=== PATIENT | female | born 1935 | race Caucasian/White ===

== ENCOUNTER 2017-06-06 07:30 | Emergency (ER) | payer MEDICARE, OTHER ==
[~2017-06-06] VITALS: Ht 167.6 cm; Wt 63.8 kg
[~2017-06-06 07:30] MED LIST: /ATOR40TA OR; ASPI81TA83 OR; CLONIDINE TTS TOP; LISI10TA4 OR; LOPR50TA OR; NITR0.4S SL; PAIN325T OR; PLAV75TA2 OR; no
[2017-06-06 07:31] VITALS: BP 162/78
[2017-06-06] MEDS ORDERED: FLUTISP (07:40)
[2017-06-06] MEDS ORDERED: LEVO50TA5 (07:40)
[2017-06-06] MEDS ORDERED: VALS320T3 (07:40)
[2017-06-06] MEDS ORDERED: METO50TA7 (07:40)
[2017-06-06 08:13] LABS: BASO # 0.1 10^3/uL (0.0-0.2); BASO % 0.7 % (0.0-1.0); EOS # 0.8 10^3/uL (0.0-0.50); EOS % 7.7 % (0.0-3.0); IMMATURE GRANULOCYTE % 0.3 % (0-0); LYMPH # 2.1 10^3/uL (1.5-4.5); LYMPH % 21.4 % (24.0-44.0); MEAN CORPUSCULAR HGB CONC 33.1 g/dl (32.0-36.5); MEAN CORPUSCULAR VOLUME 96.7 fl (80.0-96.0); MONO # 0.6 10^3/uL (0.0-0.8); MONO % 6.4 % (0.0-5.0); NEUTROPHILS # 6.2 10^3/uL (1.8-7.7); NEUTROPHILS % 63.5 % (36.0-66.0); PLATELET COUNT, AUTOMATED 269 10^3/uL (150-450); RED CELL DISTRIBUTION WIDTH 13.2 % (11.5-14.5); WHITE BLOOD COUNT 9.8 10^3/uL (4.0-10.0)
== END 2017-06-06 08:34 | disposition home or self-care (01) ==
LOC: M ED 07:30
DX: R04.0 Epistaxis (principal); I10 Essential (primary) hypertension; I25.10 Atherosclerotic heart disease of native coronary artery without angina pectoris; I25.2 Old myocardial infarction; Z79.899 Other long term (current) drug therapy; Z79.82 Long term (current) use of aspirin; Z87.891 Personal history of nicotine dependence

== ENCOUNTER 2018-07-15 18:06 | Emergency (ER) | payer MEDICARE, OTHER ==
[~2018-07-15] VITALS: Ht 170.2 cm; Wt 73.6 kg
[~2018-07-15 18:06] MED LIST changes: -AMIO200T PO; -ATOR40TA75 PO; -DOKTAB2 PO; -FAMO1TAB11 PO; -FERR325T18 PO; -GABA-1171 PO; -METO25TA4 PO; -XARE15TA PO
[2018-07-15] MEDS ORDERED: XARE15TA PO (18:34)
[2018-07-15] MEDS ORDERED: AMIO200T PO (18:34)
[2018-07-15] MEDS ORDERED: ATOR40TA75 PO (18:34)
[2018-07-15] MEDS ORDERED: FERR325T18 PO (18:34)
[2018-07-15] MEDS ORDERED: DOKTAB2 PO (18:34)
[2018-07-15] MEDS ORDERED: GABA-1171 PO (18:34)
[2018-07-15] MEDS ORDERED: FAMO1TAB11 PO (18:34)
[2018-07-15] MEDS ORDERED: METO25TA4 PO (18:34)
[2018-07-15 18:59] LABS: BASO # 0.1 10^3/uL (0.0-0.2); BASO % 0.6 % (0.0-1.0); EOS # 1.1 10^3/uL (0.0-0.50); EOS % 13.8 % (0.0-3.0); HEMOGLOBIN 9.9 g/dl (12.0-15.5); LYMPH # 1.6 10^3/uL (1.5-4.5); LYMPH % 19.3 % (24.0-44.0); MEAN CORPUSCULAR HEMOGLOBIN 32.1 pg (27.0-33.0); MEAN CORPUSCULAR HGB CONC 31.9 g/dl (32.0-36.5); MEAN CORPUSCULAR VOLUME 100.6 fl (80.0-96.0); MONO # 0.8 10^3/uL (0.0-0.8); MONO % 9.7 % (0.0-5.0); NEUTROPHILS # 4.6 10^3/uL (1.8-7.7); NEUTROPHILS % 56.2 % (36.0-66.0); PLATELET COUNT, AUTOMATED 293 10^3/uL (150-450); RED BLOOD COUNT 3.08 10^6/uL (4.00-5.40); WHITE BLOOD COUNT 8.1 10^3/uL (4.0-10.0)
[2018-07-15 19:31] VITALS: BP 133/63
[2018-07-15 19:37] LABS: ALBUMIN 2.9 GM/DL (3.2-5.2); ALT/SGPT 40 U/L (12-78); BILIRUBIN,DIRECT 0.2 MG/DL (0.0-0.2); BILIRUBIN,TOTAL 0.5 MG/DL (0.2-1.0); BLOOD UREA NITROGEN 16 MG/DL (7-18); CALCIUM LEVEL 8.7 MG/DL (8.8-10.2); CARBON DIOXIDE LEVEL 30 MEQ/L (21-32); CHLORIDE LEVEL 98 MEQ/L (98-107); CREATININE FOR GFR 0.88 MG/DL (0.55-1.30); GLOMERULAR FILTRATION RATE > 60.0 (>32); GLUCOSE, FASTING 109 MG/DL (70-100); LIPASE 173 U/L (73-393); POTASSIUM SERUM 4.6 MEQ/L (3.5-5.1); SODIUM LEVEL 134 MEQ/L (136-145); TOTAL PROTEIN 6.2 GM/DL (6.4-8.2)
[2018-07-15 20:48] LABS: NT-PRO BNP 2895 PG/ML (<450)
--- NOTE | 2018-07-15 21:28 | ECGEPIP ---
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
--- NOTE | 2018-07-15 21:42 | REPVR ---
EXAM: US Duplex Bilateral Lower Extremity Veins EXAM DATE/TIME: 07/15/2018 9:20 PM CLINICAL HISTORY: 83 years old, female; Pain; Leg, upper and leg, lower; Bilateral; Prior surgery; Surgery date: 1-6 months; Surgery type: Hip on left; Additional info: Swell/pain TECHNIQUE: Real-time duplex ultrasound of the Bilateral Lower Extremities with 2-D begum scale, color Doppler flow and spectral waveform analysis. Complete exam focused on the bilateral lower extremity veins. COMPARISON: No relevant prior studies available. FINDINGS: Right deep veins: Unremarkable. The common femoral, femoral, proximal profunda femoral and popliteal veins are patent without thrombus. Normal Doppler waveforms. Normal compressibility and/or augmentation response. Right superficial veins: Saphenofemoral junction is patent without thrombus. Left deep veins: Unremarkable. The common femoral, femoral, proximal profunda femoral and popliteal veins are patent without thrombus. Normal Doppler waveforms. Normal compressibility and/or augmentation response. Left superficial veins: Saphenofemoral junction is patent without thrombus. Soft tissues: Soft tissue swelling right left leg. IMPRESSION: No evidence of deep vein thrombosis. Electronically signed by: Devon Whyte On 07/15/2018 21:42:02 PM
[2018-07-15] MEDS ORDERED: ISOVUE-370 76% 100ML VIAL (Q9967) As Ordered ONE (22:51)
--- NOTE | 2018-07-15 23:37 | REPVR ---
EXAM: CT Angiography Chest With Contrast EXAM DATE/TIME: 07/15/2018 9:57 PM CLINICAL HISTORY: 83 years old, female; Pain; Chest pain; Type not specified; Additional info: Dysp TECHNIQUE: Axial computed tomographic angiography images of the chest with intravenous contrast using CT angiography protocol. All CT scans at this facility use at least one of these dose optimization techniques: automated exposure control; mA and/or kV adjustment per patient size (includes targeted exams where dose is matched to clinical indication); or iterative reconstruction. Coronal and sagittal reformatted images were created and reviewed. MIP reconstructed images were created and reviewed. CONTRAST: 75 ml of iso administered intravenously. COMPARISON: No relevant prior studies available. FINDINGS: Pulmonary arteries: Normal. No pulmonary emboli. Aorta: There is opacification of the aorta which appears intact. There is calcification atherosclerotic change throughout the aorta. Thyroid: Normal thyroid. Lungs: Small bulla are noted in the apical portions of the lung. Pleural space: A small right pleural effusion. There is no evidence of pneumothorax. Heart: There is mild cardiomegaly. There is no pericardial effusion. Lymph nodes: Small lymph nodes are noted in the mediastinum. Bones/joints: Unremarkable. No acute fracture. Soft tissues: Unremarkable. IMPRESSION: 1. There is no evidence of pulmonary embolus. 2. There is a small right pleural effusion. 3. Mild right basilar atelectasis. 4. Changes of COPD in a few bulla. Electronically signed by: Devon Whyte On 07/15/2018 23:36:42 PM
[2018-07-16] MEDS ORDERED: FUROSEMIDE 100 MG/10 ML VIAL (J1940) IV ONE (00:15)
--- NOTE | 2018-07-16 12:57 | ED PDOC ---
Post-Departure Follow-Up dr gannon faxed formal report of cta chest for fu Estrada Tejada MD Jul 16, 2018 12:57
== END 2018-07-16 02:33 | disposition home or self-care (01) ==
LOC: M ED 18:06
DX: J44.9 Chronic obstructive pulmonary disease, unspecified (principal); R60.9 Edema, unspecified; Z98.890 Other specified postprocedural states; K21.9 Gastro-esophageal reflux disease without esophagitis; E78.5 Hyperlipidemia, unspecified; I48.91 Unspecified atrial fibrillation; I25.10 Atherosclerotic heart disease of native coronary artery without angina pectoris; D50.9 Iron deficiency anemia, unspecified; Z95.5 Presence of coronary angioplasty implant and graft; Z79.899 Other long term (current) drug therapy; Z79.890 Hormone replacement therapy; Z79.01 Long term (current) use of anticoagulants; Z99.81 Dependence on supplemental oxygen; Z87.891 Personal history of nicotine dependence
CPT/HCPCS: 71275; 80048; 80076; 83690; 83880; 85025; 85379; 93005; 93041; 93970; 96374; 99284; J1940; Q9967

== ENCOUNTER → 2018-07-15 | Outpatient (REF) | payer MEDICARE, OTHER ==
[~2018-07-15] MED LIST changes: +AMIO200T PO; +ATOR40TA75 PO; +DOKTAB2 PO; +FAMO1TAB11 PO; +FERR325T18 PO; +FLUTISP; +GABA-1171 PO; +LEVO50TA5; +METO25TA4 PO; +METO50TA7; +VALS320T3; +XARE15TA PO
== END ==
LOC: M LAB REF 13:09
PROVIDERS: ATTEND Nurse Practitioner Family
DX: R60.0 Localized edema (principal); S42.125 Nondisplaced fracture of acromial process, left shoulder; I65.23 Occlusion and stenosis of bilateral carotid arteries

== ENCOUNTER 2018-08-01 07:10 | Emergency (ER) | payer MEDICARE, OTHER ==
[~2018-08-01] VITALS: Ht 170.2 cm; Wt 74.0 kg
[~2018-08-01 07:10] MED LIST changes: +AMIO200T PO; +ATOR40TA75 PO; +DOKTAB2 PO; +FAMO1TAB11 PO; +FERR325T18 PO; +GABA-1171 PO; -LEVO50TA5; +LEVO50TA5 PO; +METO25TA4 PO; +XARE15TA PO
[2018-08-01] MEDS ORDERED: METOPROLOL TART 25 MG TABLET PO ONE (07:45)
[2018-08-01 07:51] LABS: BASO % 0.4 % (0.0-1.0); EOS # 1.5 10^3/uL (0.0-0.50); EOS % 15.9 % (0.0-3.0); HEMATOCRIT 30.8 % (36.0-47.0); LYMPH # 1.3 10^3/uL (1.5-4.5); LYMPH % 14.2 % (24.0-44.0); MEAN CORPUSCULAR HEMOGLOBIN 32.9 pg (27.0-33.0); MEAN CORPUSCULAR HGB CONC 32.5 g/dl (32.0-36.5); MEAN CORPUSCULAR VOLUME 101.3 fl (80.0-96.0); MONO # 0.7 10^3/uL (0.0-0.8); MONO % 7.7 % (0.0-5.0); NEUTROPHILS # 5.6 10^3/uL (1.8-7.7); NEUTROPHILS % 61.5 % (36.0-66.0); PLATELET COUNT, AUTOMATED 249 10^3/uL (150-450); RED BLOOD COUNT 3.04 10^6/uL (4.00-5.40); WHITE BLOOD COUNT 9.1 10^3/uL (4.0-10.0)
[2018-08-01] MEDS ORDERED: FURO20TA2 PO (07:52)
[2018-08-01] MEDS ORDERED: ASPI1TAB PO (07:52)
[2018-08-01] MEDS ORDERED: CAND4TAB PO (07:52)
[2018-08-01] MEDS ORDERED: CANDESARTAN 4MG TABLET PO ONE (08:00)
[2018-08-01] MEDS ORDERED: AMIO200T PO (08:03)
[2018-08-01 08:10] LABS: INR 1.09; PARTIAL THROMBOPLASTIN TIME 31.5 SECONDS (25.4-37.6); PROTHROMBIN TIME 14.2 SECONDS (12.1-14.4)
[2018-08-01 08:14] LABS: CALCIUM LEVEL 8.4 MG/DL (8.8-10.2); CREATININE FOR GFR 0.96 MG/DL (0.55-1.30); GLOMERULAR FILTRATION RATE 59.4 (>32); POTASSIUM SERUM 4.1 MEQ/L (3.5-5.1)
[2018-08-01] MEDS ORDERED: AMIODARONE 200 MG TAB (PACERONE) PO ONE (08:15)
[2018-08-01] MEDS ORDERED: FUROSEMIDE 20 MG TAB PO ONE (08:30)
[2018-08-01] MEDS ORDERED: ALBU83IN INH (09:12)
[2018-08-01] MEDS ORDERED: BROV15NE NEB (09:12)
[2018-08-01] MEDS ORDERED: AUGM875T28 PO (10:07)
[2018-08-01 10:15] VITALS: BP 173/76
== END 2018-08-01 10:32 | disposition home or self-care (01) ==
LOC: EDSEX 07:10 → M ED 07:10 → EDBD 07:10 → M ED 10:32
DX: R04.0 Epistaxis (principal); J44.9 Chronic obstructive pulmonary disease, unspecified; Z99.81 Dependence on supplemental oxygen; Z79.01 Long term (current) use of anticoagulants; Z79.82 Long term (current) use of aspirin; I11.9 Hypertensive heart disease without heart failure; I25.10 Atherosclerotic heart disease of native coronary artery without angina pectoris; I25.2 Old myocardial infarction; D64.9 Anemia, unspecified; E78.9 Disorder of lipoprotein metabolism, unspecified; Z95.5 Presence of coronary angioplasty implant and graft; Z87.19 Personal history of other diseases of the digestive system; Z87.891 Personal history of nicotine dependence; Z79.899 Other long term (current) drug therapy

== ENCOUNTER 2018-08-09 22:32 | Inpatient (IN) | payer MEDICARE, OTHER ==
[~2018-08-09] VITALS: Ht 170.2 cm; Wt 74.9 kg
[~2018-08-09 22:32] MED LIST changes: +ALBU83IN INH; +ASPI1TAB PO; +AUGM875T28 PO; +BROV15NE NEB; +CAND4TAB PO; +FURO20TA2 PO
[2018-08-09] MEDS ORDERED: dexameTHASONE 20 MG/5 ML VIAL (J1100) IV ONE (22:45)
[2018-08-09 23:00] LABS: BASO % 0.4 % (0.0-1.0); EOS # 0.1 10^3/uL (0.0-0.50); EOS % 1.2 % (0.0-3.0); HEMATOCRIT 26.7 % (36.0-47.0); HEMOGLOBIN 8.7 g/dl (12.0-15.5); LYMPH # 0.8 10^3/uL (1.5-4.5); LYMPH % 7.7 % (24.0-44.0); MEAN CORPUSCULAR HEMOGLOBIN 32.8 pg (27.0-33.0); MEAN CORPUSCULAR HGB CONC 32.6 g/dl (32.0-36.5); MEAN CORPUSCULAR VOLUME 100.8 fl (80.0-96.0); NEUTROPHILS # 8.8 10^3/uL (1.8-7.7); NEUTROPHILS % 81.3 % (36.0-66.0); PLATELET COUNT, AUTOMATED 237 10^3/uL (150-450); RED BLOOD COUNT 2.65 10^6/uL (4.00-5.40); WHITE BLOOD COUNT 10.8 10^3/uL (4.0-10.0)
[2018-08-09] MEDS: IPRATROPIUM 0.5MG/ALBUTEROL 2.5MG INH SOL UD 3ML (DUONEB)(J7620) NEB SCH ×2 (23:01→23:39)
[2018-08-09] MEDS ORDERED: AZITHROMYCIN INJ 500 MG, VIAL MATE ADAPTER 1 EACH in D5W 250 ML IV ONE (23:15)
[2018-08-09] MEDS ORDERED: cefTRIAXone SOD 1 GM in D5W MINI-BAG PLUS 50 ML IV ONE (23:15)
[2018-08-09 23:18] LABS: BLOOD UREA NITROGEN 15 MG/DL (7-18); CARBON DIOXIDE LEVEL 31 MEQ/L (21-32); CHLORIDE LEVEL 84 MEQ/L (98-107); CREATININE FOR GFR 0.75 MG/DL (0.55-1.30); GLOMERULAR FILTRATION RATE > 60.0 (>32); GLUCOSE, FASTING 121 MG/DL (70-100); POTASSIUM SERUM 4.7 MEQ/L (3.5-5.1); SODIUM LEVEL 121 MEQ/L (136-145)
[2018-08-09] MEDS ORDERED: METO50TA7 PO (23:43)
[2018-08-09] MEDS ORDERED: AUGM875T28 PO (23:47)
[2018-08-09] MEDS ORDERED: NS 1,000 ML IV SCH (23:53)
[2018-08-10] MEDS ORDERED: PIPERACILLIN/TAZOBACTAM SOD 3.375 GM in D5W MINI-BAG PLUS 50 ML IV SCH ×2
[2018-08-10] MEDS ORDERED: IPRATROPIUM 0.5MG/ALBUTEROL 2.5MG INH SOL UD 3ML (DUONEB)(J7620) NEB PRN
[2018-08-10] MEDS ORDERED: ACETAMINOPHEN TAB 650MG DOSE (2X325MG) PO PRN
[2018-08-10] MEDS: methylPREDNISolone INJ 40 MG/1 ML VIAL (J2920) IV SCH ×4 (02:00→20:22)
[2018-08-10] MEDS: PIPERACILLIN/TAZOBACTAM SOD 3.375 GM in D5W MINI-BAG PLUS 50 ML IV SCH ×4 (02:00→20:24)
[2018-08-10 02:25] VITALS: BP 146/66
[2018-08-10] MEDS: IPRATROPIUM 0.5MG/ALBUTEROL 2.5MG INH SOL UD 3ML (DUONEB)(J7620) NEB SCH ×5 (03:19→23:54)
[2018-08-10] MEDS: PANTOPRAZOLE 40MG INJ (PROTONIX) (C9113) IV SCH (05:22)
[2018-08-10] MEDS: LEVOTHYROXINE 50MCG TABLET (0.05MG) PO SCH (05:22)
[2018-08-10] MEDS: DOXYCYCLINE HYCLATE 100 MG in D5W MINI-BAG PLUS 100 ML IV SCH ×2 (05:23→17:37)
[2018-08-10 06:05] VITALS: BP 156/76
[2018-08-10 06:23] LABS: BASO % 0.2 % (0.0-1.0); HEMATOCRIT 25.7 % (36.0-47.0); HEMOGLOBIN 8.5 g/dl (12.0-15.5); LYMPH # 0.3 10^3/uL (1.5-4.5); MEAN CORPUSCULAR HEMOGLOBIN 32.3 pg (27.0-33.0); MEAN CORPUSCULAR HGB CONC 33.1 g/dl (32.0-36.5); MEAN CORPUSCULAR VOLUME 97.7 fl (80.0-96.0); MONO # 0.1 10^3/uL (0.0-0.8); MONO % 1.2 % (0.0-5.0); NEUTROPHILS # 6.1 10^3/uL (1.8-7.7); NEUTROPHILS % 94.1 % (36.0-66.0); PLATELET COUNT, AUTOMATED 205 10^3/uL (150-450); RED BLOOD COUNT 2.63 10^6/uL (4.00-5.40); WHITE BLOOD COUNT 6.5 10^3/uL (4.0-10.0)
[2018-08-10 06:45] LABS: BLOOD UREA NITROGEN 14 MG/DL (7-18); CALCIUM LEVEL 8.1 MG/DL (8.8-10.2); CARBON DIOXIDE LEVEL 29 MEQ/L (21-32); CHLORIDE LEVEL 85 MEQ/L (98-107); CREATININE FOR GFR 0.72 MG/DL (0.55-1.30); FERRITIN 160 NG/ML (8-252); GLOMERULAR FILTRATION RATE > 60.0 (>32); GLUCOSE, FASTING 136 MG/DL (70-100); IRON (FE) 22 UG/DL (50-170); PERCENT SATURATION 8.6 % (13.2-45.0); POTASSIUM SERUM 4.5 MEQ/L (3.5-5.1); SODIUM LEVEL 121 MEQ/L (136-145); TOTAL IRON BINDING CAPACITY 257 UG/DL (250-450)
[2018-08-10 08:00] VITALS: BP 147/66
[2018-08-10] MEDS ORDERED: IPRATROPIUM 0.5MG/ALBUTEROL 2.5MG INH SOL UD 3ML (DUONEB)(J7620) NEB SCH (08:00)
[2018-08-10] MEDS: RIVAROXABAN 15 MG TAB (XARELTO) PO SCH (08:09)
[2018-08-10] MEDS: FAMOTIDINE 20 MG TAB PO SCH (08:10)
[2018-08-10] MEDS: METOPROLOL TART 25 MG TABLET PO SCH ×2 (08:10→20:29)
[2018-08-10] MEDS: ASPIRIN 81 MG ENTERIC TAB PO SCH (08:10)
[2018-08-10] MEDS: GABAPENTIN 100 MG CAP PO SCH ×2 (08:10→20:30)
[2018-08-10] MEDS: FERROUS SULFATE 325MG TAB PO SCH ×2 (08:11→20:27)
[2018-08-10] MEDS: SENOKOT S TAB PO SCH ×2 (08:11→20:28)
[2018-08-10] MEDS ORDERED: FUROSEMIDE 20 MG TAB PO SCH (09:00)
[2018-08-10 09:38] LABS: SODIUM,RANDOM URINE < 10 MEQ/L
[2018-08-10 09:40] LABS: APPEARANCE, URINE HAZY (CLEAR); BACTERIA, URINE AUTO NEGATIVE (NEGATIVE); BILIRUBIN, URINE AUTO NEGATIVE (NEGATIVE); BLOOD, URINE BLOOD NEGATIVE (NEGATIVE); COLOR, URINE YELLOW (YELLOW); GLUCOSE, URINE (UA) AUTO NEGATIVE (NEGATIVE); KETONE, URINE AUTO NEGATIVE (NEGATIVE); LEUKOCYTE ESTERASE, URINE AUTO NEGATIVE (NEGATIVE); MUCUS, URINE SMALL (NEGATIVE); NITRITE, URINE AUTO NEGATIVE (NEGATIVE); PROTEIN, URINE AUTO 1+ mg/dL (NEGATIVE); RBC, URINE AUTO 1 /HPF (0-3); SPECIFIC GRAVITY URINE AUTO 1.009 (1.002-1.035); SQUAMOUS EPITHELIAL CELL UR AU 1 /HPF (0-6); UROBILINOGEN, URINE AUTO 0.2 mg/dL (0.0-2.0); WBC, URINE AUTO 0 /HPF (0-3)
[2018-08-10 10:12] LABS: OSMOLALITY URINE 262 MOSM/KG (500-800)
--- NOTE | 2018-08-10 10:31 | REP ---
Portable chest, 10:55 p.m., AP view, the patient upright: Comparisons are the PA and lateral chest dated 01/27/[address] of 07/15/2018. There is an infiltrate in the lateral basilar segment right lower lobe, not present on the comparison studies. There is a small right pleural effusion. There is a small right pleural effusion on the comparison CT. No left pleural effusion is identified on the study today, however, there is a small left pleural effusion on the comparison CT. There are no other infiltrates. The interstitium is diffusely coarsened. This appears to be a chronic change suggestive of a chronic interstitial lung disease. Cardiac size is upper normal. The ghassan, mediastinum, skeletal structures are unremarkable. Impression: Right lower lobe infiltrate and pleural effusion. Chronic interstitial coarsening. Electronically Signed by Eliceo Dawn MD 08/10/2018 09:07 A
--- NOTE | 2018-08-10 11:24 | IPNPDOC ---
Text Note Date of Service The patient was seen on 08/10/18. NOTE Subjective: Pt states she has SOB, however no cough. No CP/Palpitations. Patient is confused this morning however daughter notes that patient was hospitalized in [place] month and half ago for hip fracture following mechanical fall. Patient denies any hip pain at this time. Objective: Vitals: (see below) General: No acute distress, laying comfortably in bed. HEENT: Moist mucous membranes. Neck: No JVD or lymphadenopathy. No stridor. Cardiac: RRR, No murmurs Pulm: Expiratory wheezing and rhonchi bilaterally. Crackles at the bases right> left lung base. No use of accessory muscles. Abd: NT/ND + BS Ext: 1-2+ pitting edema BLE. No cyanosis Neuro: Strength 5/5 BUE and BLE. CN 2-12 intact. F to N intact Labs (see below) Images: CT head pending Chest x-ray in 08/09/18 Impression: Right lower lobe infiltrate and pleural effusion. Chronic interstitial coarsening. Assessment/Plan Active/Acute Issues: 1. COPD secondary to right lower lobe pneumonia. Started on Zosyn and doxycycline. MRSA screen. Continue Solu-Medrol. Nebs increased to every 4 hours. Blood/sputum culture pending. Mucinex added. 2. Hyponatremia- Patient has not been drinking very much for the past few days. UA/urine osmolality/TSH pending. Nephrology consulted. Appreciate input. 3. History of atrial fibrillation. Rate control. On Xarelto. 4. Hypertension controlled continue home meds. Chronic Issues: 1. History of CAD status post PCI. Continue home meds. 2. History of hip fracture status post repair. 3. History of carotid stenosis. Follow up outpatient with PCP. 4. History of hyperlipidemia 5. History of tobacco abuse. DVT prophy: On Xarelto Overall prognosis guarded. VS,Fishbone, I+O VS, Fishbone, I+O Laboratory Tests 08/09/18 22:50 Red Blood Count 2.65 L, Mean Corpuscular Volume 100.8 H, Mean Corpuscular Hemoglobin 32.8, Mean Corpuscular Hemoglobin Concent 32.6, Red Cell Distribution Width 17.2 H, Neutrophils (%) (Auto) 81.3 H, Lymphocytes (%) (Auto) 7.7 L, Monocytes (%) (Auto) 9.0 H, Eosinophils (%) (Auto) 1.2, Basophils (%) (Auto) 0.4, Neutrophils # (Auto) 8.8 H, Lymphocytes # (Auto) 0.8 L, Monocytes # (Auto) 1.0 H, Eosinophils # (Auto) 0.1, Basophils # (Auto) 0.0, Calcium Level 8.0 L 08/10/18 05:33 Red Blood Count 2.63 L, Mean Corpuscular Volume 97.7 H, Mean Corpuscular Hemoglobin 32.3, Mean Corpuscular Hemoglobin Concent 33.1, Red Cell Distribution Width 17.1 H, Neutrophils (%) (Auto) 94.1 H, Lymphocytes (%) (Auto) 4.0 L, Monocytes (%) (Auto) 1.2, Eosinophils (%) (Auto) 0.0, Basophils (%) (Auto) 0.2, Neutrophils # (Auto) 6.1, Lymphocytes # (Auto) 0.3 L, Monocytes # (Auto) 0.1, Eosinophils # (Auto) 0.0, Basophils # (Auto) 0.0, Calcium Level 8.1 L Vital Signs Date Time Temp Pulse Resp B/P (MAP) Pulse Ox O2 Delivery O2 Flow Rate FiO2 08/10/18 08:10 62 147/66 08/10/18 08:00 3.0 08/10/18 08:00 96.9 18 98 08/10/18 06:23 Nasal Cannula I&O- Last 24 Hours up to 6 AM 08/10/18 06:00 Intake Total 475 ml Output Total 0 ml Balance 475 ml JARVIS NORRIS MD Aug 10, 2018 11:24
[2018-08-10] MEDS ORDERED: FUROSEMIDE 40 MG/4 ML VIAL (J1940) IV ONE (11:30)
[2018-08-10 11:36] LABS: URIC ACID 2.7 MG/DL (2.6-6.0)
[2018-08-10] MEDS: CANDESARTAN 4MG TABLET PO SCH (11:47)
[2018-08-10] MEDS: guaiFENesin ER 600 MG TAB PO SCH ×2 (11:47→20:30)
[2018-08-10 12:00] VITALS: BP 149/63
[2018-08-10 14:48] LABS: BLOOD UREA NITROGEN 14 MG/DL (7-18); CALCIUM LEVEL 8.4 MG/DL (8.8-10.2); CARBON DIOXIDE LEVEL 28 MEQ/L (21-32); CHLORIDE LEVEL 86 MEQ/L (98-107); CREATININE FOR GFR 0.88 MG/DL (0.55-1.30); GLOMERULAR FILTRATION RATE > 60.0 (>32); GLUCOSE, FASTING 169 MG/DL (70-100); POTASSIUM SERUM 4.2 MEQ/L (3.5-5.1); SODIUM LEVEL 124 MEQ/L (136-145)
[2018-08-10 16:00] VITALS: BP 122/66
--- NOTE | 2018-08-10 17:50 | ECGEPIP ---
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
[2018-08-10 18:53] LABS: CALCIUM LEVEL 8.1 MG/DL (8.8-10.2); CREATININE FOR GFR 0.98 MG/DL (0.55-1.30)
[2018-08-10 20:00] VITALS: BP 126/76
--- NOTE | 2018-08-10 20:22 | HPE ---
DATE OF ADMISSION: 08/09/2018 PRIMARY CARE PROVIDER: Dr. Fong STRUCTURAL STEEL ENGINEER: Dr. Becker ATTENDING PHYSICIAN: Dr. Macario CHIEF COMPLAINT: Worsening coughing, shortness of breath and wheezing for about two days. HISTORY OF PRESENT ILLNESS: This patient is an 83-year-old white female with history of chronic obstructive pulmonary disease (COPD) came to the hospital for evaluation of above complaints. The history was provided by herself we well as by her daughters who are with her in the emergency room (ER). However, the patient is a poor historian. Per the family, back to June 21, she was in [place] visiting her family and she fell. She got left hip fracture and for that she had to be hospitalized and underwent open reduction and internal fixation treatment. After surgery she developed atrial fibrillation and for that she started to take Xarelto for anticoagulation treatment as well as amiodarone. Gradually she recovered and she came back to the [place] area on July 12. Later on, she developed nose bleeding and she came to the hospital and she was ruled out pulmonary embolism (PE) but she was advised to hold Xarelto for one day and then restart it after her nose bleeding resolves. Per family, in the last two days she has worsening shortness of breath, coughing without phlegm as well as wheezing. She does not have any fever, no chills. No vomiting. No chest pain. No abdominal pain. No diarrhea. Sent her here for the following evaluation in the ER. In the ER her initial workup indicated she has worsening anemia. Sodium is down to 121 and also her chest exam shows she may have pneumonia. Intravenous (IV) antibiotics and steroids were started in the ER. Meanwhile, medicine service called for admission. REVIEW OF SYSTEMS: Denies fever, no chills, no headache. No blurred vision. Positive shortness of breath. Positive wheezing and coughing but not phlegm. No hematemesis. No nausea, no vomiting. No abdominal pain. No chest pain. No diarrhea. The family mentioned she had some black stool at home in the last few weeks. All other systems reviewed were negative. PAST MEDICAL HISTORY: 1. Chronic obstructive pulmonary disease (COPD) on 3 liters oxygen supplement at home. 2. Paroxysmal atrial fibrillation on Xarelto. 3. Hypertension. 4. Hypothyroidism. 5. Coronary artery disease status post stenting back in 2008. PAST SURGICAL HISTORY: 1. Left hip open reduction and internal fixation. 2. Cardiac stent. SOCIAL HISTORY: 1-1/2 pack daily tobacco use daily for about 40 years, quit 10 years ago. No alcohol abuse. No illicit drug abuse. She is FULL CODE. FAMILY HISTORY: One of her sisters from some kind of cancer and one of the brothers had a heart transplant. ALLERGIES: No known drug allergies. MEDICATIONS: - albuterol as needed - amiodarone 200 mg every two days - aspirin 81 mg by mouth daily - atorvastatin 40 mg by mouth daily - candesartan 4 mg by mouth daily - famotidine 20 mg by mouth daily - ferrous sulfate 325 mg by mouth twice a day - Lasix 20 mg by mouth daily - Neurontin 200 mg by mouth twice a day - Synthroid 50 mg by mouth daily - metoprolol 75 mg by mouth twice a day - Xarelto 15 mg daily PHYSICAL EXAMINATION: VITAL SIGNS: Temperature is 96.5, heart rate is 55, respirations 24, blood pressure is 170/76, oxygen saturation is 90% on 3 liters oxygen supplementation. GENERAL: She is awake, alert and oriented x3. She is in moderate respiratory distress. HEENT: Atraumatic. Pupils are equal, round, reactive to light. No jaundice. Extraocular muscles are intact. Ears, nose and throat are normal. Mouth: Mucosa is dry. NECK: No jugular venous distention (JVD). No bruits. LUNGS: Decreased breath sounds. Diffuse wheezing and basilar crackles. HEART: S1, S2, regular, no tachycardia, no murmur. ABDOMEN: Soft, positive bowel sounds, nontender. LOWER EXTREMITIES: She has some edema in the left lower extremity. NEUROLOGIC: Nonfocal. SKIN: No rash. PSYCHIATRIC: No acute psychosis. DIAGNOSTIC LABORATORY STUDIES: Include the following: Complete blood count (CBC) and differential: White blood cell (WBC) 10.8, hemoglobin and hematocrit (H and H) 18.7/26.7, platelets 237. Sodium 121, potassium 4.7, chloride 81, bicarbonate 31, BUN 15, creatinine 0.7, glucose 121. Chest x-ray reviewed. IMPRESSION: 1. Acute on chronic respiratory failure. 2. Chronic obstructive pulmonary disease (COPD) exacerbation. 3. Pneumonia. 4. Hypoxemia. 5. Paroxysmal atrial fibrillation currently normal sinus rhythm. 6. Chronic anemia. 7. Coronary artery disease. PLAN: The patient will be admitted to the progressive care unit (PCU). I will treat her with oxygen supplementation, intravenous (IV) steroid, IV antibiotics Zosyn and doxycycline as well as nebulizers for chronic obstructive pulmonary disease (COPD) exacerbation and hospital-acquired pneumonia. Will follow cultures. We will screen for influenza. Regarding her hyponatremia likely due to dehydration and hypovolemia will gently treat her with normal saline. Will follow up sodium closely. Regarding her worsening anemia will check the iron profile stool guaiac to rule out any chronic gastrointestinal (GI) bleed. Per the family she did not colonoscopy in the past. If her stool guaiac is positive she may need a gastroenterology workup to rule out any GI bleeding. Meanwhile, I will start her on Protonix. Will continue her Xarelto for history of paroxysmal atrial fibrillation and so she does not need any extra deep vein thrombosis (DVT) prophylaxis.
[2018-08-10] MEDS: ATORVASTATIN 20 MG TAB PO SCH (20:27)
[2018-08-10 22:43] LABS: CALCIUM LEVEL 7.6 MG/DL (8.8-10.2); CREATININE FOR GFR 1.05 MG/DL (0.55-1.30); GLOMERULAR FILTRATION RATE 53.5 (>32); POTASSIUM SERUM 4.2 MEQ/L (3.5-5.1)
[2018-08-11] VITALS (9 sets, daily range): BP systolic 100–162; BP diastolic 55–89
[2018-08-11] MEDS: methylPREDNISolone INJ 40 MG/1 ML VIAL (J2920) IV SCH ×2 (02:26→08:44)
[2018-08-11] MEDS: PIPERACILLIN/TAZOBACTAM SOD 3.375 GM in D5W MINI-BAG PLUS 50 ML IV SCH ×4 (02:26→20:24)
[2018-08-11 02:45] LABS: CALCIUM LEVEL 7.7 MG/DL (8.8-10.2); CREATININE FOR GFR 1.04 MG/DL (0.55-1.30); GLOMERULAR FILTRATION RATE 54.1 (>32); POTASSIUM SERUM 4.5 MEQ/L (3.5-5.1)
[2018-08-11] MEDS: DOXYCYCLINE HYCLATE 100 MG in D5W MINI-BAG PLUS 100 ML IV SCH (05:05)
[2018-08-11] MEDS: PANTOPRAZOLE 40MG INJ (PROTONIX) (C9113) IV SCH (05:05)
[2018-08-11 05:28] LABS: BASO % 0.1 % (0.0-1.0); HEMATOCRIT 26.3 % (36.0-47.0); HEMOGLOBIN 8.7 g/dl (12.0-15.5); LYMPH # 0.3 10^3/uL (1.5-4.5); LYMPH % 2.5 % (24.0-44.0); MEAN CORPUSCULAR HEMOGLOBIN 32.5 pg (27.0-33.0); MEAN CORPUSCULAR HGB CONC 33.1 g/dl (32.0-36.5); MEAN CORPUSCULAR VOLUME 98.1 fl (80.0-96.0); MONO # 0.3 10^3/uL (0.0-0.8); MONO % 1.9 % (0.0-5.0); NEUTROPHILS # 12.3 10^3/uL (1.8-7.7); NEUTROPHILS % 94.9 % (36.0-66.0); PLATELET COUNT, AUTOMATED 239 10^3/uL (150-450); RED BLOOD COUNT 2.68 10^6/uL (4.00-5.40)
[2018-08-11] MEDS: IPRATROPIUM 0.5MG/ALBUTEROL 2.5MG INH SOL UD 3ML (DUONEB)(J7620) NEB SCH ×5 (05:41→20:00)
[2018-08-11 05:44] LABS: C REACTIVE PROTEIN QUANTITATIV 4.1 MG/DL (0.00-0.30); CALCIUM LEVEL 8.1 MG/DL (8.8-10.2); CREATININE FOR GFR 1.04 MG/DL (0.55-1.30); GLOMERULAR FILTRATION RATE 54.1 (>32); POTASSIUM SERUM 4.5 MEQ/L (3.5-5.1)
[2018-08-11] MEDS: LEVOTHYROXINE 50MCG TABLET (0.05MG) PO SCH (06:16)
--- NOTE | 2018-08-11 08:17 | CR ---
DATE OF CONSULTATION: 08/10/2018 REASON FOR CONSULTATION: Hyponatremia. HISTORY OF PRESENT ILLNESS: Mrs. Enriquez is an 83-year-old female who was admitted to [facility] last evening with worsening shortness of breath and cough for 2 days duration. She has known history of COPD, atrial fibrillation and mild dementia. Her daughters are present on the bedside and were able to help with her condition. The patient fell a couple of months ago and had a hip fracture that time requiring hospitalization. She also developed atrial fibrillation and has been anticoagulation with Xarelto. She has known history of coronary artery disease with angioplasty and stent placement about 10 years ago. Recently she denied any chest pain, however has been short of breath for a couple of days due to which she was brought to the emergency room. She was noticed to have an infiltrate and felt to have COPD exacerbation. Her sodium level was 121 and a nephrology consultation was requested this morning. The patient is seen this morning. PAST MEDICAL AND SURGICAL HISTORY: Significant for 1. History of hypertension. 2. Hypothyroidism. 3. COPD. 4. History of paroxysmal atrial fibrillation. 5. Coronary artery disease with angioplasty and stent placement about 10 years ago. PAST SURGICAL HISTORY: Significant for ORIF for a left hip fracture and angioplasty and stents for her coronary artery disease. PERSONAL AND SOCIAL HISTORY: The patient quit smoking about 10 years ago and has no history of alcohol or drug use. FAMILY HISTORY: Negative for any significant cardiac or renal problems. ALLERGIES: She has NO KNOWN DRUG ALLERGIES. MEDICATIONS: Her home medications included amiodarone 200 mg twice a day, aspirin 81 mg daily, atorvastatin 40 mg daily, and Candesartan 4 mg daily, famotidine 20 mg daily, ferrous sulfate 325 mg twice a day, albuterol inhaler as needed, Lasix 20 mg daily, Neurontin 200 mg twice a day, Synthroid 50 mcg daily, metoprolol 75 mg twice a day, and is also 15 mg daily. REVIEW OF SYSTEMS: The patient herself is not a great historian. She has significant memory lapses and not able to provide accurate information. Her daughter was present in the room was able to help. She has no fever or chills. Her last fall was in June and she is able to walk at home with the help of walker. No recent falls reported. She has been short of breath for just couple of days with wheezing. No nausea, vomiting or diarrhea reported. Ears, nose and throat are unremarkable. Cardiovascular system significant for worsening dyspnea but no chest pain. Respiratory system significant for shortness of breath and cough without any hemoptysis or pleuritic type of chest pain. GI system negative for nausea, vomiting or diarrhea. system negative for dysuria or hematuria. Musculoskeletal system significant for generalized arthritis and difficulty ambulating. She requires a walker for assistance. She had a left hip fracture left hip fracture couple of months ago. Endocrine system is significant for hypothyroidism and no diabetes. Hematological system significant for anticoagulation for atrial fibrillation. Neurological system is significant for mild dementia and no known seizures or stroke known. Psychosocial system negative for depression, anxiety. Other systems are reviewed and are unremarkable. PHYSICAL EXAMINATION: Elderly female lying in the bed without any acute distress. Temperature 97 degrees Fahrenheit, heart rate 65 per minute and respiratory rate 20 per minute. Blood pressure 149/63 mmHg and oxygen saturation 97% on 3 liters oxygen. Head is atraumatic. Neck is supple and JVD is at least 7 cm above sternal angle. She has no oral thrush or ulcers. Heart: Sounds are regular at present and lungs have bilateral wheezing and basilar rales. Abdomen: Soft and nontender and bowel sounds are normal. Extremities: Without any cyanosis or clubbing. Lower extremity edema is at least 1+. Neurologically she is awake and able to answer simple questions. However, she is not very well oriented. LABORATORY DATA: Her initial labs showed a WBC count 10.8, hemoglobin 8.7 and hematocrit 27.6. Sodium 121, potassium 4.7, BUN 15 and creatinine 0.75. Lactic acid was 1.2. This morning again, sodium is 121 and potassium 4.5. She has been receiving IV normal saline through the night. Her calcium level is 8.1 and glucose 136. Urine sodium was less than 10 and urine osmolality 262. PROBLEMS: 1. Hyponatremia probably multifactorial. She may have chronic hyponatremia related to her COPD. At present clinically she looks volume overloaded with elevated neck veins, pulmonary rales and lower extremity edema. I do not feel that she is dehydrated or hyponatremia is entirely due to inappropriate ADH. I am going to stop her IV fluids and give her a dose of Lasix 40 mg intravenously. She was taking Lasix at home. We will recheck her electrolytes in few hours and then consider to make adjustments as needed. I am also checking her TSH level and uric acid level. 2. Shortness of breath most likely it is multifactorial as she has COPD, possible pneumonia, anemia and volume overload. I feel that she is decompensated and likely to improve with diuresis. Will monitor her urine output and consider giving her further Lasix if needed. Her chemistry panel will be checked again in the morning. Thank you for involving me in the care of Mrs. Enriquez. I will follow her along with you.
[2018-08-11] MEDS ORDERED: FUROSEMIDE 40 MG/4 ML VIAL (J1940) IV ONE (09:00)
--- NOTE | 2018-08-11 09:41 | REP ---
Clinical: Shortness of breath. Comparison: 08/09/2018. Findings: Mediastinum and cardiac silhouette are stable. Lung troncoso demonstrate chronic interstitial changes. Superimposed right lower lobe pleural effusion and atelectasis again identified and similar to prior examination. Skeletal structures stable. Impression: Continued right lower lobe atelectasis and pleural effusion. Electronically Signed by Leroy Babcock MD 08/11/2018 09:33 A
[2018-08-11] MEDS: GABAPENTIN 100 MG CAP PO SCH ×2 (09:58→20:25)
[2018-08-11 09:59] LABS: ABG BASE EXCESS 3.5 (-2.0-2.0); ABG HCO3 29.9 MEQ/L (22.0-26.0); ABG O2 SATURATION 91.1 % (95.0-99.0); ABG PARTIAL PRESSURE CO2 54.6 mmHg (35.0-45.0); ABG STANDARD HCO3 27.5 MEQ/L (22.0-26.0); ABG TOTAL CO2 31.6 MEQ/L (23.0-31.0); ABG pH (ARTERIAL) 7.356 UNITS (7.350-7.450)
[2018-08-11] MEDS ORDERED: SLF 3 ML SYR IV PRN (10:00)
[2018-08-11] MEDS: METOPROLOL TART 25 MG TABLET PO SCH ×2 (10:00→21:00)
[2018-08-11] MEDS ORDERED: VANCOMYCIN HCL 1,000 MG, VIAL MATE ADAPTER 1 EACH in D5W 250 ML IV SCH (10:00)
[2018-08-11] MEDS: SENOKOT S TAB PO SCH ×2 (10:01→20:24)
[2018-08-11] MEDS: ASPIRIN 81 MG ENTERIC TAB PO SCH (10:02)
[2018-08-11] MEDS: CANDESARTAN 4MG TABLET PO SCH (10:02)
[2018-08-11] MEDS: FAMOTIDINE 20 MG TAB PO SCH (10:03)
[2018-08-11] MEDS: AMIODARONE 200 MG TAB (PACERONE) PO SCH (10:03)
[2018-08-11] MEDS: FERROUS SULFATE 325MG TAB PO SCH ×2 (10:03→20:24)
[2018-08-11] MEDS: RIVAROXABAN 15 MG TAB (XARELTO) PO SCH (10:04)
[2018-08-11] MEDS: guaiFENesin ER 600 MG TAB PO SCH ×2 (10:05→20:24)
[2018-08-11] MEDS ORDERED: VANCOMYCIN HCL 500 MG in D5W MINI-BAG PLUS 100 ML IV ONE (11:00)
[2018-08-11 11:41] LABS: FOLATE 11.5 NG/ML (>5.4)
[2018-08-11 11:42] LABS: SODIUM,RANDOM URINE 31 MEQ/L
[2018-08-11 11:44] LABS: VITAMIN B12 LEVEL 383 PG/ML (247-911)
[2018-08-11 12:06] LABS: OSMOLALITY URINE 277 MOSM/KG (500-800)
[2018-08-11] MEDS: FUROSEMIDE 40 MG/4 ML VIAL (J1940) IV SCH ×3 (13:26→19:42)
--- NOTE | 2018-08-11 13:28 | CCN ---
DATE: 08/11/2018 START TIME: 1210 hours STOP TIME: 1244 hours I was asked to attend Juan David Enriquez first on the progressive care unit (PCU) and then here in the intensive care unit (ICU). The patient has been examined and chart reviewed. I spoke at length with Dr Macario. In essence, this is an 83-year-old female with a history of obstructive lung disease. I have no subjective data in that regard. She has previous long-standing tobacco history, but quit 10 years ago. According to the records, she is supposed to be on nebulized bronchodilators at home but reports to me that she takes no respiratory medications. She recently was hospitalized in [place] and is admitted now for what is felt to be a healthcare associated pneumonia and a right sided infiltrate. She was felt to be a little more short of breath today and was moved to the intensive care unit (ICU). Blood gas on an unknown oxygen flow via nasal cannula showed a pH of 7.356, PCO2 of 54.6, and PO2 of 66.0. She had some cough at home with some creamy sputum, no blood. Denies chest pain. She denies any fever at home. Says she has been short of breath at least this bad for the last 10 years. She is somewhat of a suboptimal historian in that regard. PHYSICAL EXAMINATION: She has a blood pressure of 162/70, heart rate of 72 and regular, respiratory rate 18 to about 20 without accessory muscle use. She is currently afebrile. HEENT: Generally normocephalic, atraumatic. Pupils do react. NECK: Trachea is midline. Jugular venous system is borderline at 60 degrees. Trachea is in the midline. Chest shows diminished but symmetric expansion. Borderline kyphosis. There is mid to late expiratory wheezing scattered throughout, a little bit more diminished at the bases, right mildly greater than left, but there are no rubs or focal egophony. CARDIAC: Generally regular. Peripheral pulses palpable. There is at least 2+ pitting lower extremity edema bilaterally, at least to the level of the knees. ABDOMEN: Obese. Soft. Active bowel sounds. No convincing organomegaly or masses. EXTREMITIES: Without cyanosis or clubbing. NEUROLOGIC: She is awake, alert, and appropriate. PSYCHIATRIC: Normal mood and affect. LABORATORIES: White blood cell count of 13.0, hemoglobin 8.7, platelet count 239,000. 94.9% segmented neutrophils, no bands. Sodium 124, potassium 4.5,CO2 of 31, BUN 19, creatinine 1.04. Chest x-ray does show coarse interstitial markings with what appears to be a right lower lobe infiltrate and I do believe small bilateral effusions. CT scan of the chest done on 07/15/2018 here in our emergency room showed no evidence of the infiltrate, but does have coarsened interstitium with bilateral small effusions at that point. The most pressing problems requiring my presence at the bedside are: 1. Obstructive lung disease with exacerbation. 2. Chronic hypoxemic and hypercapnic respiratory failure. 3. Right lower lobe infiltrate, likely healthcare associated. 4. Previous tobacco history. 5. Hyponatremia. At this point, I do not see an acute role for noninvasive ventilatory support. She is fairly comfortable and conversant. Her examination certainly suggests airway dysfunction. In that regard, we will increase her bronchodilator regimen and do this via intermittent pressure therapy. We will increase her IV steroids. I will add long-acting bronchodilator, as well as long-acting steroids and a long-acting anticholinergic. Sputum has been ordered by the primary service. I will recheck a blood gas in several hours. I am in full agreement currently with her antimicrobials. Ulcer and deep vein thrombosis (DVT) prophylaxis are already in place. We await the outcome of the above interventions. I left the bedside at 1244 hours. 34 minutes of critical care was delivered at the bedside, not including procedures. VANDANA
--- NOTE | 2018-08-11 13:51 | IPNPDOC ---
Text Note Date of Service The patient was seen on 08/11/18. NOTE Subjective: Patient has increased shortness of breath with a nonproductive co ugh.. No CP/Palpitations. Her mentation improved. Patient denies any hip pain at this time. Objective: Vitals: (see below) General: No acute distress, laying comfortably in bed. HEENT: Moist mucous membranes. Neck: No JVD or lymphadenopathy. No stridor. Cardiac: RRR, No murmurs Pulm: Expiratory wheezing and rhonchi bilaterally. Crackles at the bases right> left lung base. No use of accessory muscles. Abd: NT/ND + BS Ext: 1-2+ pitting edema BLE. No cyanosis Neuro: Strength 5/5 BUE and BLE. CN 2-12 intact. F to N intact Labs (see below) Images: CT head negative for acute findings. Chest x-ray in 08/09/18 Impression: Right lower lobe infiltrate and pleural effusion. Chronic interstitial coarsening. Assessment/Plan Active/Acute Issues: 1. Acute on chronic hypoxic respiratory failure secondary to COPD exacerbation secondary to HCAP right lower lobe pneumonia as well as coronavirus. Recently hospitalized one half months ago for hip fracture. Continue Zosyn, will add vancomycin. MRSA screen. Continue Solu-Medrol. Nebs increased to every 4 hours. Blood/sputum culture pending. Mucinex added. Dr. Collins consulted. 2. Acute decompensated diastolic heart failure - started on IV Lasix, Vazquez placed for strict I/O. Echocardiogram ordered. We'll monitor closely in the ICU. 2. Hyponatremia-improving. Appreciate Nephrology input. 3. History of atrial fibrillation. Rate control. On Xarelto. 4. Hypertension controlled continue home meds. Chronic Issues: 1. History of CAD status post PCI. Continue home meds. 2. History of hip fracture status post repair. 3. History of carotid stenosis. Follow up outpatient with PCP. 4. History of hyperlipidemia 5. History of tobacco abuse. DVT prophy: On Xarelto Overall prognosis guarded. We'll monitor closely in ICU. VS,Fishbone, I+O VS, Fishbone, I+O Laboratory Tests 08/10/18 14:01 Calcium Level 8.4 L 08/10/18 18:15 Calcium Level 8.1 L 08/10/18 21:55 Calcium Level 7.6 L 08/11/18 02:06 Calcium Level 7.7 L 08/11/18 04:57 Red Blood Count 2.68 L, Mean Corpuscular Volume 98.1 H, Mean Corpuscular Hem oglobin 32.5, Mean Corpuscular Hemoglobin Concent 33.1, Red Cell Distribution Width 17.0 H, Neutrophils (%) (Auto) 94.9 H, Lymphocytes (%) (Auto) 2.5 L, Monocytes (%) (Auto) 1.9, Eosinophils (%) (Auto) 0.0, Basophils (%) (Auto) 0.1, Neutrophils # (Auto) 12.3 H, Lymphocytes # (Auto) 0.3 L, Monocytes # (Auto) 0.3, Eosinophils # (Auto) 0.0, Basophils # (Auto) 0.0, Calcium Level 8.1 L Vital Signs Date Time Temp Pulse Resp B/P (MAP) Pulse Ox O2 Delivery O2 Flow Rate FiO2 08/11/18 12:00 96.7 69 17 162/70 (100) 93 3.0 08/10/18 23:54 Nasal Cannula I&O- Last 24 Hours up to 6 AM 08/11/18 06:00 Intake Total 1127 ml Output Total 1600 ml Balance -473 ml JARVIS NORRIS MD Aug 11, 2018 13:51
[2018-08-11] MEDS: ADVAIR HFA 230/21MCG INHALER INH SCH ×2 (14:06→21:00)
[2018-08-11] MEDS: TIOTROPIUM INHALER/CAPSULE (SPIRIVA) INH SCH (14:09)
[2018-08-11] MEDS: methylPREDNISolone INJ 125 MG/2 ML VIAL (J2930) IV SCH ×2 (14:24→20:25)
[2018-08-11] MEDS: SLF 3 ML SYR IV SCH ×2 (14:24→20:25)
[2018-08-11 14:54] LABS: BLOOD UREA NITROGEN 19 MG/DL (7-18); C REACTIVE PROTEIN QUANTITATIV 3.56 MG/DL (0.00-0.30); CALCIUM LEVEL 8.3 MG/DL (8.8-10.2); CARBON DIOXIDE LEVEL 34 MEQ/L (21-32); CHLORIDE LEVEL 86 MEQ/L (98-107); CPK CREATINE PHOSPHOKINASE 56 U/L (26-192); CREATININE FOR GFR 1.07 MG/DL (0.55-1.30); GLOMERULAR FILTRATION RATE 52.4 (>32); GLUCOSE, FASTING 147 MG/DL (70-100); MB/CK RELATIVE INDEX 6.25 (< OR =4); POTASSIUM SERUM 4.7 MEQ/L (3.5-5.1); SODIUM LEVEL 125 MEQ/L (136-145); TROPONIN I < 0.02 NG/ML (< 0.10)
--- NOTE | 2018-08-11 15:31 | PHACANCOPD ---
PHARMACY VANCOMYCIN DOSING Pt Demographics Demographics Patient Age:83 , Weight:81.000 , Gender: female Adjusted Body Weight Date: 08/11/18, Adjusted Body Weight: Kg Events Past 24 Hours Events Past 24 Hours: YES: Elevation in WBC Vancomycin Vancomycin indication: HAP Vancomycin Target Ranges: 15-20 mcg/ml Vancomycin Load Y/N: Yes Load Dose Date Time Vancomycin Load Dose: 1500mg Date: 08/11/18 Time:1000 Vancomycin Dose Date: 08/11/18. Current Vancomycin Dose: [1g IV Q18H] Intermittent Dosing?: No Labs Labs Item Value Date Time White Blood Count 10.8 10^3/uL H 08/09/18 2250 White Blood Count 13.0 10^3/uL H 08/11/18 0457 Creatinine 1.04 MG/DL 08/11/18 0206 Creatinine 1.04 MG/DL 08/11/18 0457 Creatinine 1.07 MG/DL 08/11/18 1406 Blood Urea Nitrogen 19 MG/DL H 08/11/18 1406 Blood Urea Nitrogen 19 MG/DL H 08/11/18 0457 Blood Urea Nitrogen 19 MG/DL H 08/11/18 0206 C-Reactive Protein, Quantitative 4.10 MG/DL H 08/11/18 0457 C-Reactive Protein, Quantitative 3.56 MG/DL H 08/11/18 1406 Micro Microbiology 08/09/18 Blood Culture - Preliminary, Resulted No growth after 24 hours . All specim... 08/11/18 MRSA Screen, Received Pending 08/11/18 Respiratory Virus Panel (PCR) ([facility]) - Final, Complete Coronavirus Oc43 Creatinine Clearance Date:08/11/18. Est Creatinine Clearance: [~44ml/min]. Pending Labs Vancomycin trough scheduled 08/12/18 @2100, prior to the 3rd dose Assessment and Plan Maintaining Current Dose?: Yes Reason for dose change: No Dose Change Pharmacist Note Pharmacist Note Date: 08/11/18. Pharmacist note: Day #1 empiric vancomycin therapy initiated with a 1500mg loading dose, followed by a maintenance regimen of 1g IV Q18H for the treatment of HAP - aiming for a goal trough of 15-20mcg/ml. The patient is here with acute on chronic hypoxic respiratory failure secondary to COPD exacerbation secondary to HAP right lower lobe pneumonia as well as coronavirus. Recently hospitalized one half months ago for hip fracture. The patient has increased shortness of breath today with a nonproductive cough. WBC is increased today, and the patient remains afebrile. No PMH of MRSA or vanco use here at [facility]. A current MRSA screen is pending. A vancomycin trough has been scheduled to be drawn tomorrow, 08/12/18 @2100, prior to the 3rd dose to ensure adequate monitoring. We will continue to monitor and make dose adjustments if needed. MARY FREGOSO [facility] Aug 11, 2018 15:31
[2018-08-11 16:25] LABS: ABG BASE EXCESS 5.9 (-2.0-2.0); ABG HCO3 32.1 MEQ/L (22.0-26.0); ABG O2 SATURATION 96.2 % (95.0-99.0); ABG PARTIAL PRESSURE CO2 55.3 mmHg (35.0-45.0); ABG PARTIAL PRESSURE O2 82.5 mmHg (75.0-100.0); ABG STANDARD HCO3 29.8 MEQ/L (22.0-26.0); ABG TOTAL CO2 33.8 MEQ/L (23.0-31.0); ABG pH (ARTERIAL) 7.381 UNITS (7.350-7.450)
[2018-08-11] MEDS: ATORVASTATIN 20 MG TAB PO SCH (20:24)
--- NOTE | 2018-08-11 23:22 | ECHO ---
DATE OF PROCEDURE: 08/11/2018 REFERRING PHYSICIAN: Dr. Myles Macario INDICATION: Dyspnea. Height 170 cm, weight 80 kg. DIMENSIONS: IVS: 0.9 LV: 4.3 LVPW: 0.9 LA: 3.6 Aorta: 2.6 IVC: 2.3 Left atrial volume index: 27 Mitral E wave velocity: 79 A wave: 84 E prime septal: 6.8 E prime lateral: 8.9 FINDINGS: The study is of rather limited technical quality with very difficult visualization. The patient appears to be in sinus rhythm, even though quality of the ECG recording was very poor. Left ventricle is of normal size. I estimate overall normal left ventricular (LV) systolic function with estimated ejection fraction (EF) around 60-65%. Right ventricle appears dilated, but it was very poorly seen. Left atrium is normal size. Right atrium is severely dilated. Aortic valve appears mildly sclerotic, but the visualization was limited and I cannot comment much on its structure. Mitral and tricuspid valves appear normal. Pulmonic valve was not seen. No pericardial effusion is noted. Inferior vena cava is dilated but collapses with respiration, indicative of mildly elevated central venous pressure. Aortic root is normal. Aortic arch and abdominal aorta were not well seen. Doppler interrogation of aortic valve reveals no stenosis and mild insufficiency. There is also mild mitral insufficiency and at least moderate tricuspid insufficiency. Calculated pulmonary artery pressure at minimum is close to 60 mmHg, which would correspond to moderately severe pulmonary hypertension. Mitral inflow pattern and tissue Doppler imaging of mitral annulus revealed grade 1 diastolic dysfunction. CONCLUSIONS: 1. Study is of limited technical quality. 2. Normal LV size with preserved LV systolic function and grade 1 diastolic dysfunction. 3. No hemodynamically significant aortic and mitral valve disease. 4. At least moderate tricuspid insufficiency. 5. Elevated central venous pressure. 6. At least moderately severe pulmonary hypertension. COMMENT: Subacute bacterial endocarditis (SBE) prophylaxis is not recommended.
[2018-08-12] VITALS: BP 140/64
[2018-08-12] MEDS: FUROSEMIDE 40 MG/4 ML VIAL (J1940) IV SCH ×6 (00:40→20:00)
[2018-08-12] MEDS: PIPERACILLIN/TAZOBACTAM SOD 3.375 GM in D5W MINI-BAG PLUS 50 ML IV SCH ×4 (02:34→20:20)
[2018-08-12] MEDS: methylPREDNISolone INJ 125 MG/2 ML VIAL (J2930) IV SCH ×4 (02:34→20:21)
--- NOTE | 2018-08-12 03:34 | IPN ---
DATE OF SERVICE: 08/11/2018 SUBJECTIVE: The patient was seen and examined at the bedside today morning. She was sitting up in the bed. She was actively wheezing. She was wearing a nasal cannula. She continues to be hyponatremic. Sodium is 124 today morning. She was given a dose of Lasix by the hospitalist team. She was making urine but still in moderate respiratory distress. OBJECTIVE: Vital signs: Temperature is 97.9 degrees Fahrenheit. Blood pressure 154/80. Pulse is 61. Respiratory rate of 22. Saturating 94% on 3 liters via nasal cannula. Intake and output: Urine output recorded is 1 liter so far since overnight. Weight on the bed scale is 81 kg. PHYSICAL EXAMINATION: GENERAL: The patient is awake, alert, and oriented times two sitting up in the bed wearing nasal cannula in moderate respiratory distress. HEAD AND NECK EXAM: Extraocular muscles are intact. Pupils are equally round and reactive to light. Mucous membranes are moist. Neck is supple. There is moderately elevated jugular venous distention (JVD). CARDIOVASCULAR: S1, S2 regular rate, 3+ edema of the bilateral lower extremities. RESPIRATORY: The patient is in moderate respiratory distress. Decreased air entry bilaterally at the bases. She has bilateral expiratory rhonchi all over the lungs. ABDOMEN: Soft, obese, positive bowel sounds. No organomegaly was appreciated. MUSCULOSKELETAL: Extremities are warm. She has 3+ edema of the bilateral lower extremities up to knees. CENTRAL NERVOUS SYSTEM (INTERPRETER FOR THE DEAF): No focal deficits. She follows commands. Power is 5/5 in bilateral upper extremities. LABORATORY REVIEW: Complete blood count (CBC) showed a white blood cell (WBC) of 13, hemoglobin is 8.7, platelets of 239. Urine osmolality is 277. Random sodium is 31. Arterial blood gas (ABG) done today morning showed a pH of 7.35, pCO2 of 51, PO2 of 66, bicarbonate is 31.6, oxygen saturation is 91%. Basic metabolic panel (BMP) today morning showed sodium 124, potassium is 4.5, chloride 86, bicarbonate 31, BUN 19, creatinine is 1.04 and glucose 160. Serum osmolality is 267. The a.m. cortisol is 26. MICROBIOLOGY: Respiratory viral panel done today morning showed a coronavirus. IMAGING: Chest x-ray done today morning showed a right lower lobe atelectasis and pleural effusion. CURRENT INPATIENT MEDICATIONS: The patient's medications were all reviewed by me. - doxycycline - IV doxycycline has been stopped - Zosyn - the patient has been started on Zosyn 3.375 grams intravenous (IV) every 6 hours - vancomycin IV - candesartan - she continues to be on candesartan 4 mg by mouth daily - Lasix - she has been started on Lasix 40 mg IV every 4 hours - Solu-Medrol dose has been increased to 80 mg every 6 hours No other change in the medications today as compared with yesterday. ASSESSMENT AND PLAN: 1. Hyponatremia. The patient has hypervolemic hyponatremia with low serum osmolality, high urine osmolality. She has already been started on Lasix 40 mg IV every 4 hours. She is adequately responding. Thyroid-stimulating hormone (TSH) level is normal. Serum cortisol level is also within normal range. Continue the diuresis at this time. Candesartan can sometimes contribute to hyponatremia. If the serum sodium does not improve by diuresis then I would stop the candesartan and give the patient a dose of tolvaptan which will help with aquaresis and optimize the fluid status as well. 2. Acute chronic obstructive pulmonary disease (COPD) exacerbation. It is most likely related to coronavirus infection. Pulmonary service has already been called on board. The patient is getting nebulizers. Steroid dose has been increased. The patient is being transferred to intensive care unit (ICU) for any possible need of continuous positive airway pressure (CPAP). 3. Hypoxemia. It is secondary to a combination of chronic obstructive pulmonary disease (COPD) exacerbation, decompensated congestive heart failure (CHF) and fluid overload. The patient is being diuresed. Continue oxygen via nasal cannula. 4. 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 Volume status is decompensated at this point. The patient has significant volume overload, 3+ lower extremity edema. She is already being diuresed with Lasix 40 mg IV every 4 hours. Continue current dose. 5. Hypertension with chronic kidney disease stage III. Blood pressure (BP) is optimized but as mentioned above, the patient is on candesartan which can sometimes worsen hyponatremia and she is also on metoprolol which is cardioselective but it can make chronic obstructive pulmonary disease (COPD) symptoms worse. If her symptoms do not improve then I would change her antihypertensive regimen by tomorrow morning. The plan of care was discussed with the hospitalist team, Dr. Myles Macario.
[2018-08-12 04:00] VITALS: BP 144/63
[2018-08-12] MEDS: IPRATROPIUM 0.5MG/ALBUTEROL 2.5MG INH SOL UD 3ML (DUONEB)(J7620) NEB SCH ×7 (04:00→23:47)
[2018-08-12] MEDS ORDERED: VANCOMYCIN HCL 1,000 MG, VIAL MATE ADAPTER 1 EACH in D5W 250 ML IV SCH (04:00)
[2018-08-12] MEDS: LEVOTHYROXINE 50MCG TABLET (0.05MG) PO SCH (05:13)
[2018-08-12] MEDS: SLF 3 ML SYR IV SCH ×3 (05:17→20:26)
[2018-08-12] MEDS: PANTOPRAZOLE 40MG INJ (PROTONIX) (C9113) IV SCH (05:17)
[2018-08-12] MEDS: TIOTROPIUM INHALER/CAPSULE (SPIRIVA) INH SCH (07:39)
[2018-08-12] MEDS: ADVAIR HFA 230/21MCG INHALER INH SCH ×2 (07:39→20:58)
[2018-08-12 08:00] VITALS: BP 140/64
[2018-08-12] MEDS: GABAPENTIN 100 MG CAP PO SCH ×2 (08:10→20:22)
[2018-08-12] MEDS: ASPIRIN 81 MG ENTERIC TAB PO SCH (08:11)
[2018-08-12] MEDS: RIVAROXABAN 15 MG TAB (XARELTO) PO SCH (08:11)
[2018-08-12] MEDS: FERROUS SULFATE 325MG TAB PO SCH ×2 (08:11→20:22)
[2018-08-12] MEDS: FAMOTIDINE 20 MG TAB PO SCH (08:11)
[2018-08-12] MEDS: SENOKOT S TAB PO SCH ×2 (08:12→20:23)
[2018-08-12] MEDS: guaiFENesin ER 600 MG TAB PO SCH ×2 (08:12→20:25)
[2018-08-12] MEDS: METOPROLOL TART 25 MG TABLET PO SCH ×2 (08:12→20:26)
[2018-08-12] MEDS: CANDESARTAN 4MG TABLET PO SCH (08:12)
[2018-08-12 08:50] LABS: HEMOGLOBIN 9.5 g/dl (12.0-15.5); MEAN CORPUSCULAR HEMOGLOBIN 32.9 pg (27.0-33.0); MEAN CORPUSCULAR HGB CONC 32.8 g/dl (32.0-36.5); MEAN CORPUSCULAR VOLUME 100.3 fl (80.0-96.0); PLATELET COUNT, AUTOMATED 262 10^3/uL (150-450); RED BLOOD COUNT 2.89 10^6/uL (4.00-5.40)
[2018-08-12 09:40] LABS: CALCIUM LEVEL 8.1 MG/DL (8.8-10.2); CREATININE FOR GFR 1.11 MG/DL (0.55-1.30); GLOMERULAR FILTRATION RATE 50.2 (>32); MB/CK RELATIVE INDEX 6.97 (< OR =4); POTASSIUM SERUM 3.2 MEQ/L (3.5-5.1); TROPONIN I 0.02 NG/ML (< 0.10)
[2018-08-12] MEDS ORDERED: POTASSIUM CHLORIDE 10% LIQ 20 MEQ/15 ML UDC PO ONE ×2 (10:00→16:00)
[2018-08-12] MEDS: SPIRONOLACTONE 25 MG TAB PO SCH (11:56)
[2018-08-12 12:00] VITALS: BP 146/64
--- NOTE | 2018-08-12 12:31 | REP ---
CT of the brain without IV contrast: There are no comparisons. There is no hemorrhage. There is no edema, mass effect or midline shift. The sulci and ventricles are enlarged compatible with diffuse volume loss. There is heterogeneity in the deep white matter compatible with chronic microvascular ischemia. The cortical stripe is unremarkable. The visualized paranasal sinuses and mastoid air cells are clear. Impression: There is no hemorrhage, acute infarct or mass. There is diffuse volume loss and chronic microvascular ischemia. Electronically Signed by Eliceo Dawn MD 08/10/2018 09:42 A
[2018-08-12 16:00] VITALS: BP 124/59
[2018-08-12 20:00] VITALS: BP 151/67
--- NOTE | 2018-08-12 20:23 | IPN ---
DATE: 08/12/2018 The patient was seen and examined. Reported respirations much improved. Denies any chest pain, pressure or discomfort. Continues to have cough, currently on 3 liters oxygen, which is the patient's baseline. VITAL SIGNS: Temperature 98.3, pulse 63, respirations 20, blood pressure 124/59, pulse oximetry 96% on 3 liters. LABORATORY DATA: WBC 10, hemoglobin and hematocrit 9.5/29, platelets 262. Chemistries: Sodium 130, potassium 3.2, chloride 87, bicarbonate 35, BUN 20, creatinine 1.11. Cardiac enzymes negative times two. PHYSICAL EXAMINATION: GENERAL: The patient is alert, comfortable, and in no acute distress. HEENT: Moist mucous membranes. Neck supple. CARDIAC: Regular. S1, S2. 2/6 systolic murmur. PULMONARY: Mild expiratory wheeze. Mild rhonchi bilaterally. ABDOMEN: Soft, nontender. EXTREMITIES: 2+ bilateral lower extremity edema. ASSESSMENT AND PLAN: This is an 83-year-old female patient with underlying medical history of chronic hypoxic respiratory failure with chronic obstructive pulmonary disease (COPD), paroxysmal atrial fibrillation on Xarelto, hypertension, hypothyroidism, coronary artery disease with stenting. The patient presented with shortness of breath, cough and wheeze. 1. Acute on chronic hypoxic respiratory failure secondary to acute chronic obstructive pulmonary disease (COPD) exacerbation due to right lower lobe pneumonia, as well as coronavirus. The patient recently hospitalized for hip fracture. Continue Zosyn. Vancomycin has been discontinued. Supportive care. Solu-Medrol and taper as tolerated. Spiriva, Advair, nebulizer treatments. Case discussed with pulmonology, Dr. Collins. Back to baseline oxygen saturation. Physical therapy (PT) has been ordered. 2. Acute decompensated diastolic congestive heart failure (CHF) with severe pulmonary artery hypertension. Pulmonology on consult. Diuresis with aldactone, Lasix. Net negative fluid restriction. Continue ARB, candesartan. Continue statin. Continue aspirin. Telemetry monitoring. 3. Hyponatremia, improving. Nephrology consulted. Fluid restriction of 1.5 liters. Diuresis with Lasix and aldactone. 4. History of paroxysmal atrial fibrillation. Continue Xarelto. Continue Lopressor. Continue amiodarone. Telemetry monitoring. 5. Hypertension. Continue medication with candesartan, Lopressor, aldactone, Lasix. 6. Coronary artery disease. Continue medications as above. 7. History of hip fracture, status post repair. Continue physical therapy (PT). 8. Carotid artery disease. Continue aspirin. The patient is on Xarelto as well. Outpatient followup. 9. Dyslipidemia. Outpatient followup. Continue statin. 10. Deep vein thrombosis (DVT) prophylaxis. The patient is on Xarelto. DISPOSITION: Pending physical therapy (PT), clinical improvement. We will start tapering steroids tomorrow.
[2018-08-12] MEDS: ATORVASTATIN 20 MG TAB PO SCH (20:24)
[2018-08-13] VITALS (7 sets, daily range): BP systolic 145–179; BP diastolic 62–73
[2018-08-13] MEDS: FUROSEMIDE 40 MG/4 ML VIAL (J1940) IV SCH ×5 (00:10→23:42)
[2018-08-13] MEDS: methylPREDNISolone INJ 125 MG/2 ML VIAL (J2930) IV SCH (02:04)
[2018-08-13] MEDS: PIPERACILLIN/TAZOBACTAM SOD 3.375 GM in D5W MINI-BAG PLUS 50 ML IV SCH ×4 (02:04→20:38)
[2018-08-13] MEDS: IPRATROPIUM 0.5MG/ALBUTEROL 2.5MG INH SOL UD 3ML (DUONEB)(J7620) NEB SCH ×5 (03:00→20:00)
[2018-08-13] MEDS: PANTOPRAZOLE 40MG INJ (PROTONIX) (C9113) IV SCH (05:34)
[2018-08-13] MEDS: LEVOTHYROXINE 50MCG TABLET (0.05MG) PO SCH (05:34)
--- NOTE | 2018-08-13 05:35 | IPN ---
DATE OF VISIT: 08/12/2018 SUBJECTIVE: The patient was seen and examined at the bed side this morning. She is afebrile and hemodynamically stable. She is states she is feeling much better today as compared with yesterday. Her wheezing is a lot better. She is responding well to the intravenous (IV) diuretics. Sodium has nicely improved to 130 today with the diuresis that was done yesterday. She has developed hypokalemia today. Her renal function is stable. OBJECTIVE: VITAL SIGNS: Temperature 98.7 degrees Fahrenheit, blood pressure 146/64, pulse 64, respiratory rate 19, saturating 97% on nasal canal 3 liters. Intake and output: Urine output recorded as 3.9 liters yesterday, 3.9 liters so far today since overnight. Weight in the bed scale is 80 kg, it was 81 kg yesterday. PHYSICAL EXAMINATION: GENERAL: The patient is awake, alert and oriented times three. She is laying in bed with mild respiratory distress. HEENT/NECK: Extraocular muscles intact. Pupils equal, round, and reactive to light. Moist mucous membranes. Neck is supple. There is mild elevation of jugular venous distention (JVD). CARDIOVASCULAR: S1, S2. Regular rate, 2+ edema of the bilateral lower extremities. RESPIRATORY: Decreased breath sounds at the bases, mild expiratory rhonchi bilaterally at the bases up to the mid lung zones. ABDOMEN: Soft, positive bowel sounds, nontender, no organomegaly. MUSCULOSKELETAL: No clubbing or cyanosis. 2+ edema of the bilateral lower extremities up to the knees. GATE OPERATOR: No focal deficits. Power is 5/5 in the bilateral upper extremities. LABORATORY REVIEW: CBC showed WBC 10, hemoglobin 9.5, platelets 262. Basic metabolic profile (BMP) showed sodium 130, potassium 3.2, chloride 87, bicarbonate 35 and BUN 20, creatinine is 1.1, it was 1.07 yesterday. Calcium 8.1. Microbiology: Sputum culture is pending. Blood culture is pending. CURRENT INPATIENT MEDICATIONS: The patient's medications were all reviewed by me. - The patient continues to be on IV Zosyn. - She continues to be on Lasix 40 mg IV every 4 hours. - The patient was given a dose of Potassium chloride 40 mEq in the morning by myself. - She was also started on spironolactone 25 mg by mouth daily. ASSESSMENT AND PLAN: 1. Hyponatremia. The patient has hypervolemic hyponatremia. She was started on aggressive intravenous diuretic regimen. She is responding well to the diuretics. Sodium level has nicely improved to 130 today. Continue the intravenous diuretics at this point. 2. Acute chronic obstructive pulmonary disease (COPD) exacerbation. The patient is symptomatically feeling much better. She is getting oxygen by nasal cannula. She is on steroids and nebulizations. The pulmonary service is also on board; continue intravenous antibiotics as well. 3. Hypokalemia. This is secondary to aggressive diuresis. I have started the patient on potassium chloride 40 mEq in the morning and 20 mEq in the afternoon and she was also started on spironolactone. 4. Hypertension with chronic kidney disease stage III. Continue the current dose of candesartan. The patient is also on metoprolol 75 mg twice daily. If COPD symptoms do not improve, the patient can be started on calcium channel blockers instead of beta blockers.
[2018-08-13] MEDS: SLF 3 ML SYR IV SCH ×3 (05:36→20:40)
[2018-08-13 05:40] LABS: HEMATOCRIT 30.4 % (36.0-47.0); HEMOGLOBIN 9.9 g/dl (12.0-15.5); MEAN CORPUSCULAR HEMOGLOBIN 32.5 pg (27.0-33.0); MEAN CORPUSCULAR HGB CONC 32.6 g/dl (32.0-36.5); MEAN CORPUSCULAR VOLUME 99.7 fl (80.0-96.0); PLATELET COUNT, AUTOMATED 289 10^3/uL (150-450); RED BLOOD COUNT 3.05 10^6/uL (4.00-5.40); WHITE BLOOD COUNT 8.5 10^3/uL (4.0-10.0)
[2018-08-13 05:51] LABS: C REACTIVE PROTEIN QUANTITATIV 1.38 MG/DL (0.00-0.30); CREATININE FOR GFR 1.26 MG/DL (0.55-1.30); GLOMERULAR FILTRATION RATE 43.4 (>32); MAGNESIUM LEVEL 1.9 MG/DL (1.8-2.4); POTASSIUM SERUM 3.3 MEQ/L (3.5-5.1)
[2018-08-13] MEDS: TIOTROPIUM INHALER/CAPSULE (SPIRIVA) INH SCH (08:04)
[2018-08-13] MEDS: ADVAIR HFA 230/21MCG INHALER INH SCH ×2 (08:05→20:43)
[2018-08-13] MEDS ORDERED: POTASSIUM CHLORIDE 10 MEQ SR TABLET PO ONE (08:30)
[2018-08-13] MEDS: guaiFENesin ER 600 MG TAB PO SCH ×2 (08:54→20:40)
[2018-08-13] MEDS: FERROUS SULFATE 325MG TAB PO SCH ×2 (08:54→20:39)
[2018-08-13] MEDS: GABAPENTIN 100 MG CAP PO SCH ×2 (08:54→20:40)
[2018-08-13] MEDS: methylPREDNISolone INJ 40 MG/1 ML VIAL (J2920) IV SCH ×3 (08:54→20:38)
[2018-08-13] MEDS: RIVAROXABAN 15 MG TAB (XARELTO) PO SCH (08:54)
[2018-08-13] MEDS: FAMOTIDINE 20 MG TAB PO SCH (08:54)
[2018-08-13] MEDS: SPIRONOLACTONE 25 MG TAB PO SCH (08:55)
[2018-08-13] MEDS: ASPIRIN 81 MG ENTERIC TAB PO SCH (08:55)
[2018-08-13] MEDS: METOPROLOL TART 25 MG TABLET PO SCH ×2 (08:55→20:40)
[2018-08-13] MEDS: AMIODARONE 200 MG TAB (PACERONE) PO SCH (08:55)
[2018-08-13] MEDS: CANDESARTAN 4MG TABLET PO SCH (08:56)
[2018-08-13] MEDS: SENOKOT S TAB PO SCH ×2 (09:00→20:39)
--- NOTE | 2018-08-13 15:17 | IPN ---
DATE: 08/13/2018 SUBJECTIVE: Patient was seen and examined at the bedside today morning. Patient is afebrile and hemodynamically stable. She reports that her breathing is much better today. She is diuresing very well with the IV diuretics. Sodium is further improved to 122 today. She is persistently hypokalemic despite potassium supplementation that was done yesterday. She is otherwise clinically improving. OBJECTIVE: VITAL SIGNS: Temperature is 97.9 degrees Fahrenheit, blood pressure 163/70, pulse is 58, respiratory rate of 20, saturating 98% on nasal cannula at 3 liters. Intake and output: Urine output recorded as 4.2, replaced yesterday 1.6 liters so far today since overnight. Weight on the bed scale is 74.9 kg. PHYSICAL EXAMINATION: GENERAL: Patient is awake, alert and oriented times three. Sitting up in the bed. No apparent distress. HEAD/NECK: Extraocular muscles intact. Pupils equally round and reactive to light. Mucous membranes are moist. Neck is supple. Mild elevation of jugular venous distention (JVD). CARDIOVASCULAR: S1, S2, regular rate. 2+ edema of the bilateral lower extremities. She has a edema in the thighs as well. RESPIRATORY: Decreased breath sounds at the bases with mild expiratory rhonchi at the bases bilaterally. ABDOMEN: Soft. Positive bowel sounds. Nontender. No organomegaly. GENITOURINARY: She has an indwelling Vazquez catheter. MUSCULOSKELETAL: No clubbing or cyanosis. 2+ edema of the bilateral lower extremities. CENTRAL NERVOUS SYSTEM: No focal deficit. Power is 5/5 in bilateral upper extremities. LAB REVIEW: CBC showed a WBC 8.5, hemoglobin 9.9, platelets are 299. BMP showed sodium 132, potassium 3.3. Chloride 90. Bicarbonate is 35. BUN 29, creatinine is 1.2. Calcium is 8. Magnesium 1.9. C-reactive protein is 1.3. CURRENT INPATIENT MEDICATIONS: Patient's medications were all reviewed by me. I have decreased the Lasix dose to 40 mg every 8 hourly now. Solu-Medrol dose has been decreased to 40 mg IV to 6 hourly. Patient was given a dose of potassium chloride 60 mEq by mouth times one dose today morning and I ordered another dose of 40 mEq to be given in the evening today. ASSESSMENT AND PLAN: 1. Hyponatremia. Patient had hypovolemic hyponatremia. She is being diuresed with IV Lasix. Sodium level has nicely improved to 132 today. Lasix dose is being decreased to 40 mg every 8 hourly now. 2. Hypokalemia. It is secondary to aggressive diuresis. She was given oral potassium yesterday as well. She was already given potassium 60 mEq by mouth in the morning. She will be given 40 mEq in the evening as well. Continue spironolactone 25 mg by mouth daily. 3. Acute chronic obstructive pulmonary disease (COPD) exacerbation. She is feeling much better. Her wheezing is improving. Solu-Medrol has been tapered down now. Continue the nebulizations. 4. Hypertension with chronic kidney disease, stage III. Continue current dose of candesartan. Continue current dose of metoprolol. 5. Metabolic alkalosis. It is secondary to a combination of COPD exacerbation and aggressive diuresis. I have decreased the diuretic dose as mentioned above.
[2018-08-13] MEDS ORDERED: POTASSIUM CHLORIDE 10% LIQ 20 MEQ/15 ML UDC PO ONE (16:00)
--- NOTE | 2018-08-13 17:59 | IPNPDOC ---
Text Note Date of Service The patient was seen on 08/13/18. NOTE The patient was seen and examined. Reported respirations much improved. Denies any chest pain, pressure or discomfort. Continues to have cough, currently on 3 liters oxygen, which is the patient's baseline. PHYSICAL EXAMINATION: GENERAL: The patient is alert, comfortable, and in no acute distress. HEENT: Moist mucous membranes. Neck supple. CARDIAC: Regular. S1, S2. 2/6 systolic murmur. PULMONARY: Mild expiratory wheeze. Mild rhonchi bilaterally. ABDOMEN: Soft, nontender. EXTREMITIES: 2+ bilateral lower extremity edema. ASSESSMENT AND PLAN: This is an 83-year-old female patient with underlying medical history of chronic hypoxic respiratory failure with chronic obstructive pulmonary disease (COPD), paroxysmal atrial fibrillation on Xarelto, hypertension, hypothyroidism, coronary artery disease with stenting. The patient presented with shortness of breath, cough and wheeze. 1. Acute respiratory distress with chronic hypoxic respiratory failure secondary to acute chronic obstructive pulmonary disease (COPD) exacerbation due to right lower lobe pneumonia, as well as coronavirus. The patient recently hospitalized for hip fracture. Continue Zosyn. Vancomycin has been discontinued. Supportive care. Solu-Medrol and taper as tolerated. Spiriva, Advair, nebulizer treatments. Case discussed with pulmonology, Dr. Collins. Back to baseline oxygen saturation. Physical therapy (PT) has been ordered. 2. Acute decompensated diastolic congestive heart failure (CHF) with severe pulmonary artery hypertension. Pulmonology on consult. Diuresis with aldactone, lasix dose reduced as per renal. Continue candesartan. Continue statin. Continue aspirin. Telemetry monitoring. 3. Hyponatremia, improving. Nephrology consulted. Fluid restriction of 1.5 liters. Diuresis with Lasix and aldactone. 4. History of paroxysmal atrial fibrillation. Continue Xarelto. Continue Lopressor. Continue amiodarone. Telemetry monitoring. 5. Hypertension. Continue medication with candesartan, Lopressor, aldactone, Lasix. 6. Coronary artery disease. Continue medications as above. 7. History of hip fracture, status post repair. Continue physical therapy (PT). 8. Carotid artery disease. Continue aspirin. The patient is on Xarelto as well. Outpatient followup. 9. Dyslipidemia. Outpatient followup. Continue statin. 10. Deep vein thrombosis (DVT) prophylaxis. The patient is on Xarelto. DISPOSITION: Pending physical therapy (PT), clinical improvement. lasix adjusted, tapered steroid VS,Fishbone, I+O VS, Fishbone, I+O Laboratory Tests 08/13/18 05:12 Red Blood Count 3.05 L, Mean Corpuscular Volume 99.7 H, Mean Corpuscular Hemoglobin 32.5, Mean Corpuscular Hemoglobin Concent 32.6, Red Cell Distribution Width 17.7 H, Calcium Level 8.0 L Vital Signs Date Time Temp Pulse Resp B/P (MAP) Pulse Ox O2 Delivery O2 Flow Rate FiO2 08/13/18 15:14 Nasal Cannula 3.0 08/13/18 15:14 16 08/13/18 12:00 98.0 55 145/62 (89) 96 I&O- Last 24 Hours up to 6 AM 08/13/18 06:00 Intake Total 1110 ml Output Total 3610 ml Balance -2500 ml TAMMY APPIAH MD Aug 13, 2018 17:59
[2018-08-13] MEDS: ATORVASTATIN 20 MG TAB PO SCH (20:39)
[2018-08-14] VITALS (7 sets, daily range): BP systolic 144–164; BP diastolic 66–76
[2018-08-14] MEDS: PIPERACILLIN/TAZOBACTAM SOD 3.375 GM in D5W MINI-BAG PLUS 50 ML IV SCH ×4 (02:00→20:26)
[2018-08-14] MEDS: IPRATROPIUM 0.5MG/ALBUTEROL 2.5MG INH SOL UD 3ML (DUONEB)(J7620) NEB SCH ×6 (03:00→20:00)
[2018-08-14] MEDS: methylPREDNISolone INJ 40 MG/1 ML VIAL (J2920) IV SCH ×2 (03:51→14:13)
[2018-08-14] MEDS: SLF 3 ML SYR IV SCH ×3 (06:19→20:38)
[2018-08-14] MEDS: LEVOTHYROXINE 50MCG TABLET (0.05MG) PO SCH (06:19)
[2018-08-14] MEDS: PANTOPRAZOLE 40MG INJ (PROTONIX) (C9113) IV SCH (06:19)
[2018-08-14 06:23] LABS: HEMOGLOBIN 9.6 g/dl (12.0-15.5); MEAN CORPUSCULAR HEMOGLOBIN 32.5 pg (27.0-33.0); MEAN CORPUSCULAR VOLUME 101.7 fl (80.0-96.0); PLATELET COUNT, AUTOMATED 250 10^3/uL (150-450); RED BLOOD COUNT 2.95 10^6/uL (4.00-5.40); WHITE BLOOD COUNT 6.9 10^3/uL (4.0-10.0)
[2018-08-14 06:43] LABS: C REACTIVE PROTEIN QUANTITATIV 0.93 MG/DL (0.00-0.30); CALCIUM LEVEL 8.1 MG/DL (8.8-10.2); CREATININE FOR GFR 1.3 MG/DL (0.55-1.30); GLOMERULAR FILTRATION RATE 41.9 (>32); MAGNESIUM LEVEL 1.9 MG/DL (1.8-2.4); POTASSIUM SERUM 3.7 MEQ/L (3.5-5.1)
[2018-08-14] MEDS: TIOTROPIUM INHALER/CAPSULE (SPIRIVA) INH SCH (07:47)
[2018-08-14] MEDS: ADVAIR HFA 230/21MCG INHALER INH SCH ×2 (07:49→20:40)
[2018-08-14] MEDS: FUROSEMIDE 40 MG/4 ML VIAL (J1940) IV SCH (08:33)
[2018-08-14] MEDS: guaiFENesin ER 600 MG TAB PO SCH ×2 (08:34→20:28)
[2018-08-14] MEDS: GABAPENTIN 100 MG CAP PO SCH ×2 (08:34→20:28)
[2018-08-14] MEDS: ASPIRIN 81 MG ENTERIC TAB PO SCH (08:34)
[2018-08-14] MEDS: FAMOTIDINE 20 MG TAB PO SCH (08:34)
[2018-08-14] MEDS: CANDESARTAN 4MG TABLET PO SCH (08:35)
[2018-08-14] MEDS: SENOKOT S TAB PO SCH ×2 (08:35→20:38)
[2018-08-14] MEDS: SPIRONOLACTONE 25 MG TAB PO SCH (08:35)
[2018-08-14] MEDS: FERROUS SULFATE 325MG TAB PO SCH ×2 (08:35→20:28)
[2018-08-14] MEDS: RIVAROXABAN 15 MG TAB (XARELTO) PO SCH (08:35)
[2018-08-14] MEDS: METOPROLOL TART 25 MG TABLET PO SCH ×2 (08:40→20:29)
[2018-08-14] MEDS ORDERED: POTASSIUM CHLORIDE 10% LIQ 20 MEQ/15 ML UDC PO ONE (10:00)
--- NOTE | 2018-08-14 11:15 | IPN ---
DATE: 08/14/2018 SUBJECTIVE: Patient was seen and examined at the bedside today morning. She is hemodynamically stable. Her breathing is significantly better. Sodium level is 135. She continues to diurese very well. Her diuretic dose was already decreased yesterday; however, with the aggressive diuresis her creatinine is slowly bumping up. It is up to 1.3 today. Hypokalemia is better today. OBJECTIVE: VITAL SIGNS: Temperature is 97 degrees Fahrenheit, blood pressure 164/74, pulse is 53, respiratory rate of 12, saturating 99% on 3 liters via nasal cannula. INTAKE AND OUTPUT: Urine output recorded as 3.3 liters yesterday, 1.1 liters so far today since overnight. Weight on the bed scale is not available. PHYSICAL EXAMINATION: GENERAL: Patient is awake, alert and oriented times three. Laying in the bed in no apparent distress. HEAD/NECK: Extraocular muscles intact. Pupils equally round and reactive to light. Mucous membranes are moist. Neck is supple. There is no jugular venous distention (JVD). CARDIOVASCULAR: S1, S2, regular rate. 1+ edema of the bilateral lower extremities. RESPIRATORY: Decreased breath sounds at the bases. No active rales or rhonchi were noted. ABDOMEN: Soft. Positive bowel sounds. Nontender. No organomegaly. GENITOURINARY: Indwelling Vazquez catheter. MUSCULOSKELETAL: No clubbing or cyanosis. 1+ edema of the bilateral lower extremities. CENTRAL NERVOUS SYSTEM: No focal deficit. Power is 5/5 in all extremities. LAB REVIEW: CBC showed a WBC 6.9, hemoglobin 9.6, platelets are 250. BMP showed sodium 135, potassium 3.7, chloride 90, bicarbonate 42, BUN 35, creatinine is 1.3, calcium is 8.1, magnesium 1.9, C-reactive protein is 0.9. Microbiology: Blood cultures sent on 08/12/2018 are negative so far. Sputum gram stain showed moderate gram positive cocci in pairs. CURRENT INPATIENT MEDICATIONS: Patient's medications were all reviewed by me. She continues to be on IV antibiotics. I have stopped the IV Lasix injections now. She has been started on torsemide 20 mg by mouth twice a day. Solu-Medrol has been decreased to 40 mg IV to 12 hourly. She was given another dose of potassium chloride 20 mEq times one dose today morning. No other change in medications today as compared with yesterday. ASSESSMENT AND PLAN: 1. Hyponatremia. Patient had hypervolemic hyponatremia. She is responding very well to IV diuretics. Sodium has improved to 135 now. Diuretic dose has been changed to oral torsemide 20 mg by mouth twice a day. 2. Hypokalemia. It was secondary to diuresis. Patient is currently on spironolactone 25 mg by mouth daily. I will give her another dose of potassium chloride 20 mEq by mouth times one dose. 3. Acute chronic obstructive pulmonary disease (COPD) exacerbation. Patient is clinically much better. Solu-Medrol is being tapered down. The rest of the management is as per primary team. 4. Hypertension with chronic kidney disease. Continue current dose of metoprolol and candesartan. 5. Metabolic alkalosis. It is secondary to aggressive diuresis and intravascular volume depletion. Diuretic dose has been decreased as mentioned above.
--- NOTE | 2018-08-14 16:11 | IPNPDOC ---
Text Note Date of Service The patient was seen on 08/14/18. NOTE The patient was seen and examined. Reported respirations much improved. Denies any chest pain, pressure or discomfort. Continues to have cough PHYSICAL EXAMINATION: GENERAL: The patient is alert, comfortable, and in no acute distress. HEENT: Moist mucous membranes. Neck supple. CARDIAC: Regular. S1, S2. 2/6 systolic murmur. PULMONARY: Mild expiratory wheeze. Mild rhonchi bilaterally. ABDOMEN: Soft, nontender. EXTREMITIES: 1+ bilateral lower extremity edema. ASSESSMENT AND PLAN: This is an 83-year-old female patient with underlying medical history of chronic hypoxic respiratory failure with chronic obstructive pulmonary disease (COPD), paroxysmal atrial fibrillation on Xarelto, hypertension, hypothyroidism, coronary artery disease with stenting. The p atient presented with shortness of breath, cough and wheeze. 1. Acute respiratory distress with chronic hypoxic respiratory failure secondary to acute chronic obstructive pulmonary disease (COPD) exacerbation due to right lower lobe pneumonia, as well as coronavirus. The patient recently hospitalized for hip fracture. Continue Zosyn. Vancomycin has been discontinued. Supportive care. Solu-Medrol and taper as tolerated. Spiriva, Advair, nebulizer treatments. Case discussed with pulmonology, Dr. Collins. Back to baseline oxygen saturation. Physical therapy (PT) has been ordered. 2. Acute decompensated diastolic congestive heart failure (CHF) with severe pulmonary artery hypertension. Pulmonology on consult. Diuresis with aldactone, PO torsemide as per renal. Continue candesartan. Continue statin. Continue aspirin. Telemetry monitoring. 3. Hyponatremia, improving. Nephrology consulted. Fluid restriction of 1.5 liters. Diuresis with Torsemide and aldactone. 4. History of paroxysmal atrial fibrillation. Continue Xarelto. Continue Lopressor. Continue amiodarone. Telemetry monitoring. 5. Hypertension. Continue medication with candesartan, Lopressor, aldactone, Lasix. 6. Coronary artery disease. Continue medications as above. 7. History of hip fracture, status post repair. Continue physical therapy (PT). 8. Carotid artery disease. Continue aspirin. The patient is on Xarelto as well. Outpatient followup. 9. Dyslipidemia. Outpatient followup. Continue statin. 10. Deep vein thrombosis (DVT) prophylaxis. The patient is on Xarelto. DISPOSITION: Pending physical therapy (PT), clinical improvement. tapered steroid VS,Fishbone, I+O VS, Fishbone, I+O Laboratory Tests 08/14/18 06:01 Red Blood Count 2.95 L, Mean Corpuscular Volume 101.7 H, Mean Corpuscular Hemoglobin 32.5, Mean Corpuscular Hemoglobin Concent 32.0, Red Cell Distribution Width 17.7 H, Calcium Level 8.1 L Vital Signs Date Time Temp Pulse Resp B/P (MAP) Pulse Ox O2 Delivery O2 Flow Rate FiO2 08/14/18 15:50 97.7 56 12 144/67 (92) 96 3.0 08/13/18 15:14 Nasal Cannula I&O- Last 24 Hours up to 6 AM 08/14/18 06:00 Intake Total 910 ml Output Total 3325 ml Balance -2415 ml TAMMY APPIAH MD Aug 14, 2018 16:11
[2018-08-14] MEDS: TORSEMIDE 20 MG TAB PO SCH (17:46)
[2018-08-14] MEDS: ATORVASTATIN 20 MG TAB PO SCH (20:28)
[2018-08-15 02:00] VITALS: BP 145/66
[2018-08-15] MEDS: methylPREDNISolone INJ 40 MG/1 ML VIAL (J2920) IV SCH ×2 (02:04→15:00)
[2018-08-15] MEDS: PIPERACILLIN/TAZOBACTAM SOD 3.375 GM in D5W MINI-BAG PLUS 50 ML IV SCH ×2 (02:04→11:13)
[2018-08-15] MEDS: IPRATROPIUM 0.5MG/ALBUTEROL 2.5MG INH SOL UD 3ML (DUONEB)(J7620) NEB SCH ×5 (02:56→14:42)
[2018-08-15 06:00] VITALS: BP 166/77
[2018-08-15] MEDS: PANTOPRAZOLE 40MG INJ (PROTONIX) (C9113) IV SCH (06:09)
[2018-08-15] MEDS: LEVOTHYROXINE 50MCG TABLET (0.05MG) PO SCH (06:09)
[2018-08-15] MEDS: SLF 3 ML SYR IV SCH ×2 (06:09→14:00)
[2018-08-15 06:50] LABS: HEMATOCRIT 28.9 % (36.0-47.0); HEMOGLOBIN 9.6 g/dl (12.0-15.5); MEAN CORPUSCULAR HEMOGLOBIN 32.3 pg (27.0-33.0); MEAN CORPUSCULAR HGB CONC 33.2 g/dl (32.0-36.5); MEAN CORPUSCULAR VOLUME 97.3 fl (80.0-96.0); PLATELET COUNT, AUTOMATED 282 10^3/uL (150-450); RED BLOOD COUNT 2.97 10^6/uL (4.00-5.40); WHITE BLOOD COUNT 7.5 10^3/uL (4.0-10.0)
[2018-08-15 07:17] LABS: C REACTIVE PROTEIN QUANTITATIV 0.51 MG/DL (0.00-0.30); CALCIUM LEVEL 7.8 MG/DL (8.8-10.2); CREATININE FOR GFR 1.27 MG/DL (0.55-1.30); POTASSIUM SERUM 3.8 MEQ/L (3.5-5.1)
[2018-08-15] MEDS: TIOTROPIUM INHALER/CAPSULE (SPIRIVA) INH SCH (07:22)
[2018-08-15] MEDS: ADVAIR HFA 230/21MCG INHALER INH SCH (07:23)
[2018-08-15 10:00] VITALS: BP 148/62
[2018-08-15] MEDS: SPIRONOLACTONE 25 MG TAB PO SCH (11:08)
[2018-08-15] MEDS: CANDESARTAN 4MG TABLET PO SCH (11:09)
[2018-08-15] MEDS: TORSEMIDE 20 MG TAB PO SCH (11:09)
[2018-08-15] MEDS: ASPIRIN 81 MG ENTERIC TAB PO SCH (11:10)
[2018-08-15] MEDS: FERROUS SULFATE 325MG TAB PO SCH (11:10)
[2018-08-15 11:11] VITALS: BP 117/60
[2018-08-15] MEDS: guaiFENesin ER 600 MG TAB PO SCH (11:11)
[2018-08-15] MEDS: METOPROLOL TART 25 MG TABLET PO SCH (11:11)
[2018-08-15] MEDS: AMIODARONE 200 MG TAB (PACERONE) PO SCH (11:12)
[2018-08-15] MEDS: GABAPENTIN 100 MG CAP PO SCH (11:12)
[2018-08-15] MEDS: FAMOTIDINE 20 MG TAB PO SCH (11:12)
[2018-08-15] MEDS: RIVAROXABAN 15 MG TAB (XARELTO) PO SCH (11:12)
[2018-08-15] MEDS: SENOKOT S TAB PO SCH (11:12)
[2018-08-15 14:00] VITALS: BP 130/64
[2018-08-15] MEDS ORDERED: ADVA230A INH (14:04)
[2018-08-15] MEDS ORDERED: TORS20TA2 PO (14:04)
[2018-08-15] MEDS ORDERED: CEFD300CAP PO (14:04)
[2018-08-15] MEDS ORDERED: ALDA25TA2 PO (14:04)
[2018-08-15] MEDS ORDERED: TIOT18INH INH (14:04)
[2018-08-15] MEDS ORDERED: PRED10TA2 PO (14:05)
--- NOTE | 2018-08-15 14:58 | IPN ---
DATE OF SERVICE: 08/15/2018 SUBJECTIVE: Patient was seen and examined at the bedside today morning. Patient is afebrile, hemodynamically stable. She was actually sitting on the sofa. Sodium level has nicely improved to 136. Her renal function is stable. Creatinine is down to 1.2 today. She denies any active complaints and reports her breathing is better today. OBJECTIVE: VITAL SIGNS: Temperature is 97.4 degrees Fahrenheit, blood pressure 148/62, pulse is 64, respiratory rate of 18, saturating 99% on nasal cannula at 3 liters. INTAKE AND OUTPUT: Urine output recorded as 2.7 liters yesterday, 300 mL so far today since overnight. Weight on the bed scale is not available. PHYSICAL EXAMINATION: GENERAL: Patient is awake, alert and oriented times three. Sitting up on the sofa in no apparent distress. HEAD/NECK: Extraocular muscles intact. Pupils equally round and reactive to light. Mucous membranes are moist. Neck is supple. There is no jugular venous distention (JVD). CARDIOVASCULAR: S1, S2, regular rate. 1+ edema of the bilateral lower extremities. RESPIRATORY: Mildly decreased breath sounds at the bases, otherwise, no rales or rhonchi. ABDOMEN: Soft, obese. Positive bowel sounds. Nontender. No organomegaly. GENITOURINARY: She has an indwelling Vazquez catheter. MUSCULOSKELETAL: No clubbing or cyanosis. 1+ edema of the lower extremities. Pulses are 2+. CENTRAL NERVOUS SYSTEM: No focal deficit. Power is 5/5 in all extremities. LAB REVIEW: CBC showed a WBC 7.5, hemoglobin 9.6, platelets are 282. BMP showed sodium 136, potassium 3.8, chloride 91, bicarbonate 41, BUN 36, creatinine is 1.2, it was 1.3 yesterday, calcium is 7.8, magnesium 2, C-reactive protein is 0.51. CURRENT INPATIENT MEDICATIONS: Patient's medications were all reviewed by me. She continues to be on torsemide 20 mg by mouth twice a day and spironolactone 25 mg by mouth daily. She continues to be on IV Zosyn. No other change in the medications today as compared with yesterday. ASSESSMENT AND PLAN: 1. Hyponatremia. Patient had hypervolemic hyponatremia which has significantly improved after aggressive diuresis. Sodium is 136 today, which is within normal range. 2. Hypokalemia. It was secondary to aggressive diuresis. She was given oral potassium yesterday. She is also on spironolactone. Potassium is 3.8. Continue to monitor for now. 3. Acute chronic obstructive pulmonary disease (COPD) exacerbation. She is clinically much better. Solu-Medrol dose is being slowly tapered down by the primary team. She is also on nebulizations. Patient is getting IV antibiotics. Duration of antibiotics is as per primary team. 4. Metabolic alkalosis. It is secondary to combination of COPD and aggressive diuresis. Diuretic dose was decreased yesterday. Alkalosis is expected to improve. No need of acetazolamide at this point. 5. Hypertension with chronic kidney disease. Continue current dose of metoprolol and candesartan. Blood pressure is acceptable.
--- NOTE | 2018-08-15 18:02 | DSES ---
DATE OF ADMISSION: 08/09/2018 DATE OF DISCHARGE: 08/15/2018 PRIMARY CARE PROVIDER: Roshan Fong MD RESTORATIVE ART EMBALMER: Dr. Garnica UMBRELLA TIPPER: Dr. Catarino Collins FINAL DIAGNOSES: 1. Acute respiratory distress with chronic hypoxic respiratory failure secondary to acute chronic obstructive pulmonary disease (COPD) exacerbation, right lower lobe pneumonia, as well as Coronavirus. 2. Acute decompensated diastolic congestive heart failure (CHF) with severe pulmonary artery hypertension. 3. Hyponatremia. 4. History of paroxysmal atrial fibrillation. 5. Hypertension. 6. Coronary artery disease. 7. History of hip fracture, status post repair. 8. Carotid artery disease. 9. Dyslipidemia. HISTORY OF PRESENT ILLNESS: This is an 83-year-old female patient with underlying medical history of COPD who came to the hospital for evaluation of shortness of breath, coughing and wheezing. The patient is a very poor historian. The patient recently came back from a trip to [place] on 06/21/2018, in which the patient fell and developed a left hip fracture, was hospitalized and underwent open reduction, internal fixation (ORIF). After surgery, the patient developed atrial fibrillation, for which the patient was started on Xarelto and amiodarone. The patient gradually recovered and returned to [place] on 07/12/2018. Later the patient developed a nosebleed and went to the hospital emergency room to rule out pulmonary embolus. The patient was advised to hold Xarelto and restart it after her nosebleed resolves. Two days prior to presenting to the hospital during this admission, the patient developed shortness of breath, worsening cough without productive phlegm. Denies any fevers, chills, chest pain, pressure or discomfort. Denies any diarrhea. Was also found to have hyponatremia. Chest x-ray showed possible evidence of pneumonia. The patient was started on antibiotics and admitted to the hospital for further care. The patient's respirations worsened and required to be transferred to the intensive care unit (ICU). Pulmonology was consulted. The patient was given high dose steroids. Respiratory panel showed Coronavirus. The patient was initially placed on Zosyn and vancomycin. Later vancomycin was discontinued due to methicillin resistant Staphylococcus aureus (MRSA) negative. Steroids were tapered. Spiriva and Advair were given. Nebulizer treatment was given. Oxygen was provided as well. The patient was also diuresed and nephrology was consulted. Fluid restriction was implemented. The patient's fluid status also improved, as well as lower extremity edema improved. The patient's home medications were continued. Deep vein thrombosis (DVT) prophylaxis was provided by Xarelto. Telemetry monitoring was appreciated. Physical therapy (PT) and occupational therapy (OT) were done. Acute rehabilitation evaluation was asked. The patient is currently tolerating oral with improving respirations, ready to be transferred to acute rehabilitation for further care and physical therapy (PT). VITAL SIGNS: Temperature 97.5, pulse 97, respirations 16, blood pressure 130/64, pulse oximetry 98% on 3 liters. LABORATORY DATA: WBC 7.5, hemoglobin and hematocrit 9.6 and 28.9, platelets 282. Chemistry: Sodium 136, potassium 3.8, chloride 91, bicarbonate 41, BUN 36, creatinine 1.27. PHYSICAL EXAMINATION: GENERAL : The patient is alert, comfortable and in no acute distress. HEENT: Normocephalic, atraumatic. Moist mucous membranes. NECK: Supple. CARDIAC: Regular. S1, S2. 2/6 systolic murmur. PULMONARY: Minimal wheeze. ABDOMEN: Soft and nontender. EXTREMITIES: Trace edema in bilateral lower extremities. DISCHARGE MEDICATIONS: - Cefdinir 300 mg by mouth twice a day for 3 more days - Solu-Medrol 40 mg IV twice a day for 1 more day and then start prednisone taper - Advair inhalation 230/21 mcg inhalation twice a day - spironolactone 25 mg by mouth daily - Spiriva inhalation daily - torsemide 20 mg by mouth twice a day - albuterol inhalation every 4 hours as needed - amiodarone 200 mg by mouth every other day - Brovana nebulizer twice a day - aspirin 81 mg by mouth daily - atorvastatin 40 mg by mouth at night - candesartan 4 mg by mouth daily - Senokot Plus by mouth twice a day as needed - Pepcid 20 mg by mouth daily - ferrous sulfate 325 mg by mouth twice a day - gabapentin 200 mg by mouth twice a day - Synthroid 50 mcg by mouth daily - metoprolol 75 mg by mouth twice a day - Xarelto 15 mg by mouth daily DISCHARGE INSTRUCTIONS: Please see primary care provider 7 days after discharge. Please see sheet pile driver operator 7 days after discharge. Solu-Medrol 40 mg IV twice a day for 1 more day and then steroid taper as directed. Physical therapy (PT) and occupational therapy (OT) as per acute rehabilitation provider. Check basic metabolic panel (BMP) every 48 hours while inpatient. Return to the hospital if symptoms worsen.
[2018-08-15] MEDS ORDERED: CEFDINIR 300 MG CAP (OMNICEF) PO SCH (21:00)
== END 2018-08-15 16:00 | DRG 190 ==
LOC: M ED 22:32 → M ED INP 23:53 → M PCU 08-10 02:06 → M ICU 08-11 12:24 → M MSPAV 08-13 15:40 → UNDODISIN 08-15 15:47
PROVIDERS: ADMIT Hospitalist; ATTEND Internal Medicine
DX: J44.1 Chronic obstructive pulmonary disease with (acute) exacerbation (principal); J18.9 Pneumonia, unspecified organism; I50.31 Acute diastolic (congestive) heart failure; E87.1 Hypo-osmolality and hyponatremia; J96.12 Chronic respiratory failure with hypercapnia; I13.0 Hypertensive heart and chronic kidney disease with heart failure and stage 1 through stage 4 chronic kidney disease, or unspecified chronic kidney disease; E87.70 Fluid overload, unspecified; I27.20 Pulmonary hypertension, unspecified; I25.10 Atherosclerotic heart disease of native coronary artery without angina pectoris; I48.0 Paroxysmal atrial fibrillation; B97.29 Other coronavirus as the cause of diseases classified elsewhere; Z79.899 Other long term (current) drug therapy; E03.9 Hypothyroidism, unspecified; Z95.2 Presence of prosthetic heart valve; Z87.891 Personal history of nicotine dependence; N18.3 Chronic kidney disease, stage 3 (moderate); E87.6 Hypokalemia

== ENCOUNTER 2018-08-15 12:38 | Inpatient (IN) | payer MEDICARE ==
[~2018-08-15] VITALS: Ht 170.2 cm; Wt 73.9 kg
[~2018-08-15 12:38] MED LIST changes: +METO50TA7 PO
[2018-08-15] MEDS ORDERED: ADVA230A INH (14:04)
[2018-08-15] MEDS ORDERED: TIOT18INH INH (14:04)
[2018-08-15] MEDS ORDERED: CEFD300CAP PO (14:04)
[2018-08-15] MEDS ORDERED: TORS20TA2 PO (14:04)
[2018-08-15] MEDS ORDERED: ALDA25TA2 PO (14:04)
[2018-08-15] MEDS ORDERED: PRED10TA2 PO (14:05)
[2018-08-15] MEDS ORDERED: ONDANSETRON 4 MG TAB (S0181) PO PRN (16:30)
[2018-08-15] MEDS ORDERED: ACETAMINOPHEN TAB 650MG DOSE (2X325MG) PO PRN (16:30)
[2018-08-15 17:02] VITALS: BP 143/79
[2018-08-15] MEDS: TORSEMIDE 20 MG TAB PO SCH (18:07)
[2018-08-15 20:00] VITALS: BP 129/60
[2018-08-15] MEDS: IPRATROPIUM 0.5MG/ALBUTEROL 2.5MG INH SOL UD 3ML (DUONEB)(J7620) NEB SCH (20:00)
[2018-08-15] MEDS: ADVAIR HFA 230/21MCG INHALER INH SCH (20:30)
[2018-08-15] MEDS: CEFDINIR 300 MG CAP (OMNICEF) PO SCH (21:17)
[2018-08-15] MEDS: ATORVASTATIN 20 MG TAB PO SCH (21:17)
[2018-08-15] MEDS: GABAPENTIN 100 MG CAP PO SCH (21:18)
[2018-08-15] MEDS: METOPROLOL TART 25 MG TABLET PO SCH (21:19)
[2018-08-15] MEDS: FERROUS GLUCONATE 324 MG TAB PO SCH (21:21)
[2018-08-15] MEDS: guaiFENesin ER 600 MG TAB PO SCH (21:21)
[2018-08-15] MEDS: BOUDREAUX'S BUTT PASTE 4OZ TOP SCH (21:22)
[2018-08-16] MEDS: IPRATROPIUM 0.5MG/ALBUTEROL 2.5MG INH SOL UD 3ML (DUONEB)(J7620) NEB SCH ×7 (00:12→23:55)
[2018-08-16] MEDS ORDERED: methylPREDNISolone INJ 40 MG/1 ML VIAL (J2920) IV SCH (03:00)
[2018-08-16] MEDS: LEVOTHYROXINE 50MCG TABLET (0.05MG) PO SCH (05:45)
[2018-08-16 06:00] VITALS: BP 135/72
[2018-08-16 07:34] LABS: BASO % 0.2 % (0.0-1.0); HEMATOCRIT 30.7 % (36.0-47.0); LYMPH # 0.7 10^3/uL (1.5-4.5); LYMPH % 11.7 % (24.0-44.0); MEAN CORPUSCULAR HEMOGLOBIN 32.5 pg (27.0-33.0); MEAN CORPUSCULAR HGB CONC 32.6 g/dl (32.0-36.5); MEAN CORPUSCULAR VOLUME 99.7 fl (80.0-96.0); MONO # 0.2 10^3/uL (0.0-0.8); NEUTROPHILS # 4.8 10^3/uL (1.8-7.7); NEUTROPHILS % 82.7 % (36.0-66.0); PLATELET COUNT, AUTOMATED 255 10^3/uL (150-450); RED BLOOD COUNT 3.08 10^6/uL (4.00-5.40); WHITE BLOOD COUNT 5.7 10^3/uL (4.0-10.0)
[2018-08-16 08:03] LABS: ALBUMIN 2.6 GM/DL (3.2-5.2); BILIRUBIN,TOTAL 0.5 MG/DL (0.2-1.0); CALCIUM LEVEL 7.9 MG/DL (8.8-10.2); CREATININE FOR GFR 1.16 MG/DL (0.55-1.30); GLOMERULAR FILTRATION RATE 47.7 (>32); POTASSIUM SERUM 3.7 MEQ/L (3.5-5.1); TOTAL PROTEIN 5.5 GM/DL (6.4-8.2)
[2018-08-16] MEDS: FAMOTIDINE 20 MG TAB PO SCH (08:36)
[2018-08-16] MEDS: FERROUS GLUCONATE 324 MG TAB PO SCH ×2 (08:36→20:22)
[2018-08-16] MEDS: GABAPENTIN 100 MG CAP PO SCH ×2 (08:36→20:22)
[2018-08-16] MEDS: guaiFENesin ER 600 MG TAB PO SCH ×2 (08:36→20:22)
[2018-08-16] MEDS: CEFDINIR 300 MG CAP (OMNICEF) PO SCH ×2 (08:36→20:22)
[2018-08-16] MEDS: METOPROLOL TART 25 MG TABLET PO SCH ×2 (08:38→20:17)
[2018-08-16] MEDS: TORSEMIDE 20 MG TAB PO SCH ×2 (08:38→17:21)
[2018-08-16] MEDS: ASPIRIN 81 MG CHEW TABLET PO SCH (08:38)
[2018-08-16] MEDS: SPIRONOLACTONE 25 MG TAB PO SCH (08:38)
[2018-08-16] MEDS: CANDESARTAN 4MG TABLET PO SCH (08:38)
[2018-08-16] MEDS: BOUDREAUX'S BUTT PASTE 4OZ TOP SCH ×2 (08:39→20:23)
[2018-08-16] MEDS ORDERED: PANTOPRAZOLE 40MG INJ (PROTONIX) (C9113) IV SCH (09:00)
[2018-08-16] MEDS: RIVAROXABAN 15 MG TAB (XARELTO) PO SCH (10:46)
[2018-08-16] MEDS: ADVAIR HFA 230/21MCG INHALER INH SCH ×2 (11:05→20:44)
[2018-08-16] MEDS: TIOTROPIUM INHALER/CAPSULE (SPIRIVA) INH SCH (11:05)
[2018-08-16] MEDS: predniSONE 20 MG TAB PO SCH (12:09)
[2018-08-16] MEDS: PANTOPRAZOLE 40MG TAB (PROTONIX) PO SCH (12:09)
[2018-08-16 14:00] VITALS: BP 144/67
--- NOTE | 2018-08-16 15:24 | HPEPDOC ---
Probation Supervisor Note DATE OF ADMISSION: Aug 15, 2018 at 16:44 SOURCE OF ADMISSION INFORMATION: patient and [facility] records CHIEF COMPLAINT: COPD and acute on chronic diastolic CHF HISTORY OF PRESENT ILLNESS: 83F pmh COPD and diastolic CHF, recent fall with left hip fracture and ORIF in June with post-op Afib now on XArelto and amiodarone who presented to [facility] ED on 08/09/18 complaining of worsening shortness of breath and cough. Imaging revealed a "Right lower lobe infiltrate and pleural effusion. Chronic interstitial coarsening." She was evaluated by pulmonology and stated on IV antibiotics, IV solumedrol, and transferred to the ICU for worsening respiratory status. She tested positive for the coronavirus. She was evaluated by nephrology for hyponatremia in the setting of hypervolemia and aggressively diuresed. ECHO on 08/11/18 showed, "Normal LV size with preserved LV systolic function and grade 1 diastolic dysfunction." Her breathing improved in addition to her hyponatremia and she was switched to po antibiotics and oral diuretics with fluid restriction for acute on chronic diastolic CHF. She was evaluated by therapy and found to have deficits in gait and ADL and deemed medically appropriate for discharged to ARU on 08/15/18. REVIEW OF SYSTEMS: The following is a completed review of systems and has been reviewed. Review of systems otherwise unremarkable. PAIN: Patient self reports no pain EYES: Negative for recent vision changes EARS, NOSE, & THROAT: no throat pain rhinorrhea or dysphagia CARDIOVASCULAR: denies chest pain or palpitations PULMONARY: Negative. +exertional dyspnea GASTROINTESTINAL: Negative for constipation, +loose stool GENITOURINARY: no dysuria MUSCULOSKELETAL: s/p left hip ORIF NEUROLOGICAL: no focal deficit, seizure/tremor HEMATOLOGICAL: +anemia SKIN:scattered ecchymosis PSYCHIATRIC: Unremarkable All other review of systems found to be negative. PAST MEDICAL HISTORY: COPD, afib, and diastolic CHF PAST SURGICAL HISTORY: left hip ORIF and cardiac stentng ALLERGIES: Please see below. MEDICATIONS: Please see below. FAMILY HX: sister with cancer, brother heart transplant Social Hx: ex-smoker quit 10 years ago, no ETOH or illicit drug abuse DIET: low sodium PHYSICAL EXAMINATION: VITAL SIGNS: Please see below. GENERAL: Pleasant and cooperative. No acute distress. on nasal canula HEENT: PERRL. Extraocular movements intact. Clear conjunctiva CARDIOVASCULAR:[Regular rate and rhythm. No murmurs, rubs, or gallops LUNGS: scattered Rhonchi . No wheezes. ABDOMEN: Soft, nontender, nondistended. Positive bowel sounds. Normal active bowel sounds NEUROLOGICAL: Alert and oriented times three. Cranial nerves II through XII grossly intact. Sensation grossly intact EXTREMITIES: 4+\\5 strength bilateral upper extremities. 4+\\5 strength right lower extremity. 4+/5 strength in left lower extremity. bilateral pedal edema SKIN: intact IMAGING: Imaging documentation personally reviewed by record. FUNCTIONAL STATUS: Premorbid: Independent with RW household distances all activities of daily life as well as mobility]. On Admission: Able to ambulate 3 ft with RW contact guard, total assist for toileting, Mx assist for lower body dressing, contact guard functional transfers GOALS: Mpd-I with RW household distances, stairs, functional trasnfers, dressing, bathing, medical optimization, family training, assess for DMEs ASSESSMENT:83-year-old F with past medical history of CAD, CHF, Afib, COPD who presents status post COPD exacerbation and acute on chronic CHF. PLAN: 1. Rehab: PT/OT, assess for DME, use energy conservation techniques 2. Neuro: stable 3. Cardio: recent acute on chronic diastolic CHF, continue Torsemide, Aldactone, fluid restrict to 1500cc/day, monitor electrolyte-medicine consulted -pmh Afib on Xarelto and Amiodarone and metoprolol 4. Resp: pmh COPD s/p acute hypoxic respiratory failure +Coronavirus, s/p IV antibiotics, finsh 3 day course of Cefdinir and steroid taper, continue daily breathing treatment 5. Endo: pmh hyopthyroidism-synthroid 6. GI ppx: pepcid and protonix 7. DVT ppx on xarelto 8. : f.u admission UA and Ucx, monitor PVRs 9. DIspo: TBD POST ADMISSION PHYSICIAN EVALUATION: Medical and functional status: Description of medical status, medical assessment: As above. Rehabilitation diagnosis and current and prior cold morbid medical conditions as above. Risk of complications and plans to mitigate them as above. Description of functional status current status is as above. Prior status as above. Status compared to preadmission: There are no clinically significant differences between the patient's current status and the information described on the preadmission screening document. Treatment plan anticipated: Treatment plan is as described above. Required disciplines including physical therapy, occupational therapy, others as noted ab ove. Intensity of services: 3 hours a day, 6 days a week. Special considerations: There are no specific special or safety considerations that would likely preclude immediate implementation of an intensive rehabilitation program or subsequently influence the plan of care. ATTESTATION: Considering all the information above, it is my best judgment that this patient requires intensive rehabilitation therapy as described above and an inpatient hospital environment due to the complexity of nursing, medical, and rehabilitation needs required by the patient. Furthermore, this patient can reasonably be expected to participate in an benefit from an inpatient rehabilitation stay with an interdisciplinary team approach to the delivery of rehabilitation care under the direction and supervision of rehabilitation physician PROGNOSIS: Excellent ESTIMATED LENGTH OF [id number] days. PROJECTED DISCHARGE DESTINATION: Home with family support and any durable medical equipment required to increase functional safety and mobility. TIME SPENT COUNSELING AND COORDINATING INITIAL CARE: Greater than 70 minutes. Vital Signs Vital Sign - Last 24 Hours 08/15/18 08/15/18 08/15/18 08/15/18 17:02 20:00 21:00 21:19 Temp 96.3 97.5 Pulse 100 82 108 Resp 18 17 B/P (MAP) 143/79 (100) 129/60 (83) 130/82 Pulse Ox 99 99 O2 Flow Rate 3.0 3.0 3.0 08/16/18 08/16/18 08/16/18 08/16/18 06:00 08:38 09:00 14:00 Temp 97.4 98.4 Pulse 61 72 60 Resp 17 17 B/P (MAP) 135/72 (93) 142/70 144/67 (92) Pulse Ox 98 98 O2 Flow Rate 3.0 3.0 3.0 Laboratory Data CBC/BMP Laboratory Tests 08/16/18 07:18 Red Blood Count 3.08 L, Mean Corpuscular Volume 99.7 H, Mean Corpuscular Hemoglobin 32.5, Mean Corpuscular Hemoglobin Concent 32.6, Red Cell Distribution Width 17.5 H, Neutrophils (%) (Auto) 82.7 H, Lymphocytes (%) (Auto) 11.7 L, Monocytes (%) (Auto) 4.0, Eosinophils (%) (Auto) 0.0, Basophils (%) (Auto) 0.2, Neutrophils # (Auto) 4.8, Lymphocytes # (Auto) 0.7 L, Monocytes # (Auto) 0.2, Eosinophils # (Auto) 0.0, Basophils # (Auto) 0.0, Calcium Level 7.9 L, Aspartate Amino Transf (AST/SGOT) 23, Alanine Aminotransferase (ALT/SGPT) 34, Alkaline Phosphatase 72, Total Bilirubin 0.5, Total Protein 5.5 L, Albumin 2.6 L Labs 24H Laboratory Tests 2 08/16/18 07:18: Immature Granulocyte % (Auto) 1.4, White Blood Count 5.7, Red Blood Count 3.08L, Hemoglobin 10.0L, Hematocrit 30.7L, Mean Corpuscular Volume 99.7H, Mean Corpu scular Hemoglobin 32.5, Mean Corpuscular Hemoglobin Concent 32.6, Red Cell Distribution Width 17.5H, Platelet Count 255, Neutrophils (%) (Auto) 82.7H, Lymphocytes (%) (Auto) 11.7L, Monocytes (%) (Auto) 4.0, Eosinophils (%) (Auto) 0.0, Basophils (%) (Auto) 0.2, Neutrophils # (Auto) 4.8, Lymphocytes # (Auto) 0.7L, Monocytes # (Auto) 0.2, Eosinophils # (Auto) 0.0, Basophils # (Auto) 0.0, Nucleated Red Blood Cells % (auto) 0.0, Anion Gap 8, Glomerular Filtration Rate 47.7, Blood Urea Nitrogen 38H, Creatinine 1.16, Sodium Level 136, Potassium Level 3.7, Chloride Level 89L, Carbon Dioxide Level 39H, Calcium Level 7.9L, Aspartate Amino Transf (AST/SGOT) 23, Alanine Aminotransferase (ALT/SGPT) 34, A lkaline Phosphatase 72, Total Bilirubin 0.5, Total Protein 5.5L, Albumin 2.6L, Albumin/Globulin Ratio 0.90L Home Medications Scheduled Amiodarone HCl (Amiodarone HCl) 200 Mg Tab, 200 MG PO Q2D, (Reported) Arformoterol Tartrate (Brovana) 15 Mcg/2 Ml Neb, 1 VIAL NEB BID, (Reported) Aspirin (Aspirin 81) 81 Mg Tab, 81 MG PO DAILY, (Reported) Atorvastatin Calcium (Atorvastatin Calcium) 40 Mg Tab, 40 MG PO QHS, (Reported) Candesartan Cilexetil (Candesartan Cilexetil) 4 Mg Tab, 4 MG PO DAILY, (Reported) Cefdinir (Cefdinir) 300 Mg Cap, 300 MG PO BID Famotidine (Famotidine) 20 Mg Tab, 20 MG PO DAILY, (Reported) WAITING FOR NEW RX Ferrous Sulfate (Ferosul) 325 Mg Tab, 325 MG PO BID, (Reported) Gabapentin (Gabapentin) 100 Mg Cap, 200 MG PO BID, (Reported) WAITING FOR NEW RX Levothyroxine Sodium (Synthroid) 50 Mcg Tab, 50 MCG PO DAILY, (Reported) Metoprolol Tartrate (Metoprolol Tartrate) 50 Mg Tab, 75 MG PO BID, (Reported) Prednisone (Prednisone) 10 Mg Tab, 10 MG PO TAPER Take 4 tabs daily x 3 days, then 3 tabs daily x 3 days, then 2 tabs daily x 3 days, then 1 tab daily x 3 days and stop Rivaroxaban (Xarelto) 15 Mg Tab, 15 MG PO DAILY, (Reported) Salmeterol/Fluticasone (Advair Hfa 230-21 Mcg/Act) 1 Aer Aer, 2 PUFF INH BID Spironolactone (Aldactone) 25 Mg Tab, 25 MG PO QAM Tiotropium [place] Monohydrate (Spiriva Handihaler) 5 Inhalation/Inhaler Powd, 1 INHALATION INH DAILY@08 Torsemide (Torsemide) 20 Mg Tab, 20 MG PO BID@09,17 Scheduled PRN (Dok Plus 50-8.6 mg) 1 Tab Tab, 1 TAB PO BID PRN for CONSTIPATION, (Reported) Albuterol Sulfate (Albuterol Sulfate) 2.5 Mg/3 Ml Nebu, 1 VIAL INH Q4H PRN for wheezing, (Reported) Allergies Coded Allergies: No Known Drug Allergy (Verified Allergy, Unknown, 09/22/12) KARLY MCKINNEY MD Aug 16, 2018 15:24
[2018-08-16 20:00] VITALS: BP 119/55
[2018-08-16] MEDS: ATORVASTATIN 20 MG TAB PO SCH (20:22)
--- NOTE | 2018-08-17 01:19 | IPN ---
DATE OF SERVICE: 08/16/2018 Patient was seen and examined. Reported no dyspnea. Currently comfortable. Participating with physical therapy. Denies any chest pain, pressure or discomfort. VITAL SIGNS: Temperature 98.4, pulse 60, respirations 17, blood pressure 144/67, pulse oximetry 98% on 3 liters nasal cannula. LABORATORY 12/17/2017: White blood cell (WBC) 5.7, hemoglobin and hematocrit (H and H) 10/30.7, platelets 255. Chemistry: Sodium 136, potassium 3.7, chloride 89, bicarbonate 39, BUN 38, creatinine 1.16. PHYSICAL EXAMINATION: GENERAL: The patient is comfortable, alert, in no acute distress. HEENT: Moist mucous membranes. Neck supple. CARDIAC: Regular. S1, S2, 2/6 systolic murmur. PULMONARY: No significant wheeze. Minimal rhonchi. ABDOMEN: Soft, nontender. EXTREMITIES: Trace edema bilateral lower extremities. ASSESSMENT AND PLAN: This is an 83-year-old female patient with underlying medical history of chronic hypoxia, chronic hypoxic respiratory failure with chronic obstructive pulmonary disease (COPD), paroxysmal atrial fibrillation on Xarelto, hypertension, hypothyroidism, coronary artery disease with stenting. The patient presented with shortness of breath and cough initially admitted on August 10, 2018. The patient was transferred to acute rehabilitation on August 15, 2018 given generalized weakness and gait instability. PROBLEMS: 1. Gait instability and general deconditioning. Physical therapy (PT)/occupational therapy (OT). Disposition as per acute rehabilitation provider. 2. Acute respiratory distress with chronic hypoxic respiratory failure secondary to acute chronic obstructive pulmonary disease (COPD) exacerbation due to right lower lobe pneumonia and coronavirus. The patient will complete three days of cefdinir (end day August 18, 2018). Taper steroid from Solu-Medrol to prednisone and will taper as tolerated. Continue Advair nebulizer treatment, oxygen supplementation. 3. Acute decompensated diastolic congestive heart failure with severe pulmonary artery hypertension. Diuresis with torsemide and aldactone. Continue candesartan and aspirin. 4. Hyponatremia. Resolved. Initially nephrology was involved while inpatient. Fluid restriction 1.5 liters, diuresis with torsemide and aldactone as ordered. 5. History of paroxysmal atrial fibrillation. Continue Xarelto, Lopressor and amiodarone. 6. Hypertension. Continue torsemide, aldactone, candesartan, Lopressor. Monitor blood pressure. 7. Coronary artery disease. Continue medications mentioned above. 8. History of left hip fracture status post repair. Physical therapy (PT) as per acute rehabilitation provider. 9. History of coronary artery disease. Continue aspirin and patient on Xarelto as well. Outpatient followup. 10. Dyslipidemia. Continue statin and aspirin. 11. Deep vein thrombosis (DVT) prophylaxis. Patient on Xarelto for atrial fibrillation. DISPOSITION: As per acute rehabilitation provider.
[2018-08-17] MEDS: IPRATROPIUM 0.5MG/ALBUTEROL 2.5MG INH SOL UD 3ML (DUONEB)(J7620) NEB SCH ×5 (03:31→20:00)
[2018-08-17] MEDS: LEVOTHYROXINE 50MCG TABLET (0.05MG) PO SCH (05:26)
[2018-08-17 06:00] VITALS: BP 136/61
[2018-08-17] MEDS: ADVAIR HFA 230/21MCG INHALER INH SCH ×2 (07:27→20:30)
[2018-08-17] MEDS: TIOTROPIUM INHALER/CAPSULE (SPIRIVA) INH SCH (07:27)
[2018-08-17] MEDS: TORSEMIDE 20 MG TAB PO SCH ×2 (07:59→16:43)
[2018-08-17] MEDS: predniSONE 20 MG TAB PO SCH (07:59)
[2018-08-17] MEDS: SPIRONOLACTONE 25 MG TAB PO SCH (08:00)
[2018-08-17] MEDS: ASPIRIN 81 MG CHEW TABLET PO SCH (08:00)
[2018-08-17] MEDS: FERROUS GLUCONATE 324 MG TAB PO SCH ×2 (08:01→20:37)
[2018-08-17] MEDS: AMIODARONE 200 MG TAB (PACERONE) PO SCH (08:01)
[2018-08-17] MEDS: METOPROLOL TART 25 MG TABLET PO SCH ×2 (08:01→20:39)
[2018-08-17] MEDS: guaiFENesin ER 600 MG TAB PO SCH ×2 (08:01→20:38)
[2018-08-17] MEDS: GABAPENTIN 100 MG CAP PO SCH ×2 (08:01→20:38)
[2018-08-17] MEDS: RIVAROXABAN 15 MG TAB (XARELTO) PO SCH (08:01)
[2018-08-17] MEDS: FAMOTIDINE 20 MG TAB PO SCH (08:01)
[2018-08-17] MEDS: CEFDINIR 300 MG CAP (OMNICEF) PO SCH ×2 (08:01→20:38)
[2018-08-17] MEDS: CANDESARTAN 4MG TABLET PO SCH (08:02)
[2018-08-17] MEDS: PANTOPRAZOLE 40MG TAB (PROTONIX) PO SCH (08:02)
[2018-08-17] MEDS: BOUDREAUX'S BUTT PASTE 4OZ TOP SCH ×2 (08:02→20:38)
[2018-08-17 10:45] VITALS: BP 138/60
--- NOTE | 2018-08-17 13:06 | IPNPDOC ---
Text Note Date of Service The patient was seen on 08/17/18. NOTE Patient was seen and examined. Reported no dyspnea. Currently comfortable. Participating with physical therapy. Denies any chest pain, pressure or discomfort. PHYSICAL EXAMINATION: GENERAL: The patient is comfortable, alert, in no acute distress. HEENT: Moist mucous membranes. Neck supple. CARDIAC: Regular. S1, S2, 2/6 systolic murmur. PULMONARY: No significant wheeze or rhonchi. ABDOMEN: Soft, nontender. EXTREMITIES: Trace edema bilateral lower extremities. ASSESSMENT AND PLAN: This is an 83-year-old female patient with underlying medical history of chronic hypoxia, chronic hypoxic respiratory failure with chronic obstructive pulmonary disease (COPD), paroxysmal atrial fibrillation on Xarelto, hypertension, hypothyroidism, coronary artery disease with stenting. The patient presented with shortness of breath and cough initially admitted on August 10, 2018. The patient was transferred to acute rehabilitation on August 15, 2018 given generalized weakness and gait instability. PROBLEMS: 1. Gait instability and general deconditioning. Physical therapy (PT)/occupational therapy (OT). Disposition as per acute rehabilitation provider. 2. Acute respiratory distress with chronic hypoxic respiratory failure secondary to acute chronic obstructive pulmonary disease (COPD) exacerbation due to right lower lobe pneumonia and coronavirus. The patient will complete three days of cefdinir (end day August 18, 2018). Taper prednisone as tolerated. Continue Advair nebulizer treatment, oxygen supplementation. 3. Acute decompensated diastolic congestive heart failure with severe pulmonary artery hypertension. Diuresis with torsemide and aldactone. Continue candesartan and aspirin. 4. Hyponatremia. Resolved. Initially nephrology was involved while inpatient. Fluid restriction 1.5 liters, diuresis with torsemide and aldactone as ordered. 5. History of paroxysmal atrial fibrillation. Continue Xarelto, Lopressor and amiodarone. 6. Hypertension. Continue torsemide, aldactone, candesartan, Lopressor. Monitor blood pressure. 7. Coronary artery disease. Continue medications mentioned above. 8. History of left hip fracture status post repair. Physical therapy (PT) as per acute rehabilitation provider. 9. History of coronary artery disease. Continue aspirin and patient on Xarelto as well. Outpatient followup. 10. Dyslipidemia. Continue statin and aspirin. 11. Deep vein thrombosis (DVT) prophylaxis. Patient on Xarelto for atrial fibrillation. DISPOSITION: As per acute rehabilitation provider. VS,Alex, I+O VS, Fishbone, I+O Vital Signs Date Time Temp Pulse Resp B/P (MAP) Pulse Ox O2 Delivery O2 Flow Rate FiO2 08/17/18 10:45 89 18 138/60 (86) 99 3.0 08/17/18 06:00 97.5 I&O- Last 24 Hours up to 6 AM 08/17/18 06:00 Intake Total 1315 ml Output Total 0 ml Balance 1315 ml TAMMY APPIAH MD Aug 17, 2018 13:06
[2018-08-17 14:00] VITALS: BP 120/58
[2018-08-17 16:43] VITALS: BP 136/67
[2018-08-17 20:00] VITALS: BP 126/58
[2018-08-17] MEDS: ATORVASTATIN 20 MG TAB PO SCH (20:38)
[2018-08-18] MEDS: IPRATROPIUM 0.5MG/ALBUTEROL 2.5MG INH SOL UD 3ML (DUONEB)(J7620) NEB SCH ×7 (04:00→23:27)
[2018-08-18] MEDS: LEVOTHYROXINE 50MCG TABLET (0.05MG) PO SCH (05:43)
[2018-08-18 06:00] VITALS: BP 135/65
[2018-08-18] MEDS: ADVAIR HFA 230/21MCG INHALER INH SCH ×2 (07:18→19:49)
[2018-08-18] MEDS: TIOTROPIUM INHALER/CAPSULE (SPIRIVA) INH SCH (07:18)
--- NOTE | 2018-08-18 08:07 | NUR ---
Pt seen this date d/t family report of decreased cognitive function. Pt presents with moderate deficit with short term and episodic memory and a mild deficit in visual planning. Retention of new information for problem solving is moderately impaired. Observed perseveration with written and verbal tasks when manipulating new information. Recommend: multimodality teaching of new processes. Addendum: 08/19/18 at 0812 by IRENE SEBASTIAN MARY Amended: Links added.
[2018-08-18] MEDS: BOUDREAUX'S BUTT PASTE 4OZ TOP SCH ×2 (09:00→20:25)
[2018-08-18] MEDS: ASPIRIN 81 MG CHEW TABLET PO SCH (10:07)
[2018-08-18] MEDS: PANTOPRAZOLE 40MG TAB (PROTONIX) PO SCH (10:08)
[2018-08-18] MEDS: FERROUS GLUCONATE 324 MG TAB PO SCH ×2 (10:08→20:23)
[2018-08-18] MEDS: TORSEMIDE 20 MG TAB PO SCH ×2 (10:08→16:46)
[2018-08-18] MEDS: GABAPENTIN 100 MG CAP PO SCH ×2 (10:08→20:25)
[2018-08-18] MEDS: guaiFENesin ER 600 MG TAB PO SCH ×2 (10:08→20:24)
[2018-08-18] MEDS: FAMOTIDINE 20 MG TAB PO SCH (10:08)
[2018-08-18] MEDS: CANDESARTAN 4MG TABLET PO SCH (10:09)
[2018-08-18] MEDS: CEFDINIR 300 MG CAP (OMNICEF) PO SCH ×2 (10:09→20:25)
[2018-08-18] MEDS: RIVAROXABAN 15 MG TAB (XARELTO) PO SCH (10:09)
[2018-08-18] MEDS: predniSONE 50 MG TAB PO SCH (10:10)
[2018-08-18] MEDS: SPIRONOLACTONE 25 MG TAB PO SCH (10:10)
[2018-08-18] MEDS: METOPROLOL TART 25 MG TABLET PO SCH ×2 (10:11→20:25)
--- NOTE | 2018-08-18 13:41 | IPNPDOC ---
Date Seen The patient was seen on 08/18/18. Progress Note HPI: 83Fwith a recent fall with left hip fracture and ORIF in June with post-op Afib now on Xarelto and amiodarone who presented to [facility] ED on 08/09/18 complaining of worsening shortness of breath and cough. Imaging revealed RLL infiltrate. She was evaluated by pulmonology and started on IV antibiotics, IV solumedrol, and transferred to the ICU for worsening respiratory status. She tested positive for the coronavirus. She was evaluated by nephrology for hyponatremia in the setting of hypervolemia and aggressively diuresed. TTE on 08/11/18 with preserved LV systolic function, grade 1 diastolic dysfunction. The pt was transferred to the care of [facility], Dr Luis, 08/15/18. No acute medical complaints today. Denies SOB/cough and states her breathing is at baseline. Denies any fevers, chills, weakness, fatigue, Headache, Chest Pain, Shortness of breath, cough, palpitations, abdominal pain, N/V/D or changes in bowel or bladder habits. PAST MEDICAL HISTORY: 1. Chronic obstructive pulmonary disease (COPD) on 3 liters oxygen supplement at home. 2. Paroxysmal atrial fibrillation on Xarelto. 3. Hypertension. 4. Hypothyroidism. 5. Coronary artery disease status post stenting back in 2008. PAST SURGICAL HISTORY: 1. Left hip open reduction and internal fixation. 2. Cardiac stent. PE: GEN: 83yo, appears stated age. Well-nourished, well developed. No acute distress. Alert and oriented x 3. Pleasant, interactive. HEENT: Normocephalic, atraumatic. Pupils are equal, round, and reactive to light. Extraocular movements are intact. No nystagmus appreciated. Sclera are nonicteric. Conjunctiva without injection. MMM. CHEST: Regular rate and rhythm, +S1, +S2 LUNGS: Decreased A/E. No wheezes, rales, or rhonchi. ABD: Round, soft, non-tender, non-distended. +Bowel sounds throughout. EXT: No lower extremity edema appreciated. SKIN: [place], dry, warm. No rashes. NEURO: Alert and oriented x 3. No focal deficits appreciated. A&P: 83Fwith a recent fall with left hip fracture and ORIF in June with post-op Afib now on Xarelto and amiodarone who presented to [facility] ED on 08/09/18 complaining of worsening shortness of breath and cough. Imaging revealed RLL infiltrate. She was evaluated by pulmonology and started on IV antibiotics, IV solumedrol, and transferred to the ICU for worsening respiratory status. She tested positive for the coronavirus. She was evaluated by nephrology for hyponatremia in the setting of hypervolemia and aggressively diuresed. TTE on 08/11/18 with preserved LV systolic function, grade 1 diastolic dysfunction. The pt was transferred to the care of Dr Toby ABRAMS, 08/15/18. 1. Gait instability and general deconditioning. Mgmt as per Dr Toby ABRAMS. PT/OT/ST as per Dr Toby ABRAMS. Pain control as per Dr Toby ABRAMS. Bowel care as per Dr Toby ABRAMS. Disposition as per Dr Toby ABRAMS. DVT prophylaxis. Pt is on Xarelto. 2. Acute respiratory distress with chronic hypoxic respiratory failure secondary to acute chronic obstructive pulmonary disease (COPD) exacerbation due to right lower lobe pneumonia and coronavirus. The patient will complete three days of cefdinir (end day August 18, 2018). Continue prednisone taper. Continue Advair, nebs, oxygen supplementation. 3. Acute decompensated diastolic congestive heart failure with severe pulmonary artery hypertension. Continue FR. Diuresis with torsemide and aldactone. Continue candesartan and aspirin. 4. Hyponatremia. Resolved. Initially nephrology was involved while inpatient. Fluid restriction 1.5 liters, diuresis with torsemide and aldactone as ordered. 5. History of paroxysmal atrial fibrillation. Continue Xarelto, Lopressor and amiodarone. 6. Hypertension. Continue torsemide, aldactone, candesartan, Lopressor. Monitor blood pressure. 7. Coronary artery disease. Continue medications mentioned above. 8. History of left hip fracture status post repair. PT/OT. 9. History of coronary artery disease. Continue Metoprolol, aspirin and patient on Xarelto as well. Outpatient followup. 10. Dyslipidemia. Continue statin and aspirin. 11. DVT prophylaxis. Patient on Xarelto for atrial fibrillation. VS, I&O, 24H, Fishbone Vital Signs/I&O Vital Signs Date Time Temp Pulse Resp B/P (MAP) Pulse Ox O2 Delivery O2 Flow Rate FiO2 3/4/19 10:11 68 135/65 08/18/18 08:00 3.0 08/18/18 06:00 97.9 18 94 08/17/18 20:30 Nasal Cannula I&O- Last 24 Hours up to 6 AM 08/18/18 06:00 Intake Total 1090 ml Output Total 0 ml Balance 1090 ml Betty Lewis Aug 18, 2018 13:41
[2018-08-18 14:00] VITALS: BP 99/48
[2018-08-18 20:00] VITALS: BP 117/58
[2018-08-18] MEDS: ATORVASTATIN 20 MG TAB PO SCH (20:25)
[2018-08-19] MEDS: IPRATROPIUM 0.5MG/ALBUTEROL 2.5MG INH SOL UD 3ML (DUONEB)(J7620) NEB SCH ×5 (02:46→23:35)
[2018-08-19 04:01] VITALS: BP 138/63
[2018-08-19] MEDS: LEVOTHYROXINE 50MCG TABLET (0.05MG) PO SCH (06:30)
[2018-08-19 06:54] LABS: HEMATOCRIT 29.1 % (36.0-47.0); HEMOGLOBIN 9.5 g/dl (12.0-15.5); MEAN CORPUSCULAR HGB CONC 32.6 g/dl (32.0-36.5); PLATELET COUNT, AUTOMATED 238 10^3/uL (150-450); RED BLOOD COUNT 2.88 10^6/uL (4.00-5.40); WHITE BLOOD COUNT 8.1 10^3/uL (4.0-10.0)
[2018-08-19] MEDS: TIOTROPIUM INHALER/CAPSULE (SPIRIVA) INH SCH (07:21)
[2018-08-19] MEDS: ADVAIR HFA 230/21MCG INHALER INH SCH ×2 (07:21→21:37)
[2018-08-19] MEDS: FAMOTIDINE 20 MG TAB PO SCH (08:40)
[2018-08-19] MEDS: FERROUS GLUCONATE 324 MG TAB PO SCH ×2 (08:40→19:46)
[2018-08-19] MEDS: PANTOPRAZOLE 40MG TAB (PROTONIX) PO SCH (08:40)
[2018-08-19] MEDS: ASPIRIN 81 MG CHEW TABLET PO SCH (08:40)
[2018-08-19] MEDS: guaiFENesin ER 600 MG TAB PO SCH ×2 (08:40→19:46)
[2018-08-19] MEDS: CANDESARTAN 4MG TABLET PO SCH (08:41)
[2018-08-19] MEDS: SPIRONOLACTONE 25 MG TAB PO SCH (08:41)
[2018-08-19] MEDS: GABAPENTIN 100 MG CAP PO SCH ×2 (08:41→19:47)
[2018-08-19] MEDS: TORSEMIDE 20 MG TAB PO SCH ×2 (08:41→17:25)
[2018-08-19] MEDS: AMIODARONE 200 MG TAB (PACERONE) PO SCH (08:41)
[2018-08-19] MEDS: predniSONE 50 MG TAB PO SCH (08:41)
[2018-08-19] MEDS: RIVAROXABAN 15 MG TAB (XARELTO) PO SCH (08:41)
[2018-08-19] MEDS: BOUDREAUX'S BUTT PASTE 4OZ TOP SCH ×2 (08:42→19:47)
[2018-08-19] MEDS: METOPROLOL TART 25 MG TABLET PO SCH ×2 (08:42→19:48)
[2018-08-19 08:59] LABS: ALBUMIN 2.6 GM/DL (3.2-5.2); BILIRUBIN,TOTAL 0.6 MG/DL (0.2-1.0); CALCIUM LEVEL 8.1 MG/DL (8.8-10.2); CREATININE FOR GFR 1.29 MG/DL (0.55-1.30); GLOMERULAR FILTRATION RATE 42.2 (>32); POTASSIUM SERUM 3.6 MEQ/L (3.5-5.1); TOTAL PROTEIN 5.3 GM/DL (6.4-8.2)
[2018-08-19 14:00] VITALS: BP 118/59
--- NOTE | 2018-08-19 15:44 | IPNPDOC ---
Date Seen The patient was seen on 08/19/18. Progress Note HPI: 83Fwith a recent fall with left hip fracture and ORIF in June with post-op Afib now on Xarelto and amiodarone who presented to [facility] ED on 08/09/18 complaining of worsening shortness of breath and cough. Imaging revealed RLL infiltrate. She was evaluated by pulmonology and started on IV antibiotics, IV solumedrol, and transferred to the ICU for worsening respiratory status. She tested positive for the coronavirus. She was evaluated by nephrology for hyponatremia in the setting of hypervolemia and aggressively diuresed. TTE on 08/11/18 with preserved LV systolic function, grade 1 diastolic dysfunction. The pt was transferred to the care of ARU, Dr Luis, 08/15/18. No acute medical complaints today. Denies SOB/cough and states her breathing is at baseline. Denies any fevers, chills, weakness, fatigue, Headache, Chest Pain, Shortness of breath, cough, palpitations, abdominal pain, N/V/D or changes in bowel or bladder habits. PAST MEDICAL HISTORY: 1. Chronic obstructive pulmonary disease (COPD) on 3 liters oxygen supplement at home. 2. Paroxysmal atrial fibrillation on Xarelto. 3. Hypertension. 4. Hypothyroidism. 5. Coronary artery disease status post stenting back in 2008. PAST SURGICAL HISTORY: 1. Left hip open reduction and internal fixation. 2. Cardiac stent. PE: GEN: 83yo, appears stated age. No acute distress. Alert and oriented x 3. Pleasant, interactive. HEENT: Normocephalic, atraumatic. Pupils are equal, round, and reactive to light. Extraocular movements are intact. No nystagmus appreciated. Sclera are nonicteric. Conjunctiva without injection. MMM. CHEST: Regular rate and rhythm, +S1, +S2 LUNGS: Decreased A/E. No wheezes, rales, or rhonchi. ABD: Round, soft, non-tender, non-distended. +Bowel sounds throughout. EXT: No lower extremity edema appreciated. SKIN: [place], dry, warm. No rashes. NEURO: Alert and oriented x 3. No focal deficits appreciated. A&P: 83Fwith a recent fall with left hip fracture and ORIF in June with post-op Afib now on Xarelto and amiodarone who presented to [facility] ED on 08/09/18 complaining of worsening shortness of breath and cough. Imaging revealed RLL infiltrate. She was evaluated by pulmonology and started on IV antibiotics, IV solumedrol, and transferred to the ICU for worsening respiratory status. She tested positive for the coronavirus. She was evaluated by nephrology for hypona tremia in the setting of hypervolemia and aggressively diuresed. TTE on 08/11/18 with preserved LV systolic function, grade 1 diastolic dysfunction. The pt was transferred to the care of Dr Toby ABRAMS, 08/15/18. 1. Gait instability and general deconditioning. Mgmt as per Dr Toby ABRAMS. PT/OT/ST as per Dr Toby ABRAMS. Pain control as per Dr Toby ABRAMS. Bowel care as per Dr Toby ABRAMS. Disposition as per Dr Toby ABRAMS. DVT prophylaxis. Pt is on Xarelto. 2. Acute respiratory distress with chronic hypoxic respiratory failure secondary to acute chronic obstructive pulmonary disease (COPD) exacerbation due to right lower lobe pneumonia and coronavirus. The patient will completed cefdinir (end day August 18, 2018). Continue prednisone tapering dose. Continue Advair, nebs, oxygen supplementation. 3. Acute decompensated diastolic congestive heart failure with severe pulmonary artery hypertension. Continue FR. Diuresis with torsemide and aldactone. Continue candesartan and aspirin. SCr 1.29. 4. Hyponatremia. Resolved. Initially nephrology was involved while inpatient. Fluid restriction 1.5 liters, Continue torsemide and aldactone as ordered. 5. History of paroxysmal atrial fibrillation. Continue Xarelto, Lopressor and amiodarone. 6. Hypertension. Continue torsemide, aldactone, candesartan, Lopressor. Monitor blood pressure. 7. Coronary artery disease. Continue medications mentioned above. 8. History of left hip fracture status post repair. PT/OT. 9. History of coronary artery disease. Continue Metoprolol, aspirin and patient on Xarelto as well. Outpatient followup. 10. Dyslipidemia. Continue statin and aspirin. 11. DVT prophylaxis. Patient on Xarelto for atrial fibrillation. VS, I&O, 24H, Fishbone Vital Signs/I&O Vital Signs Date Time Temp Pulse Resp B/P (MAP) Pulse Ox O2 Delivery O2 Flow Rate FiO2 08/19/18 14:00 97.2 88 18 118/59 (44) 97 3.0 08/19/18 11:29 Nasal Cannula I&O- Last 24 Hours up to 6 AM 08/19/18 06:00 Intake Total 1370 ml Balance 1370 ml Laboratory Data 24H LABS Laboratory Tests 2 08/18/18 18:18: Urine Color YELLOW, Urine Appearance CLEAR, Urine pH 6.0, Urine Specific [place] 1.010, Urine Protein NEGATIVE, Urine Glucose (UA) NEGATIVE, Urine Ketones NEGATIVE, Urine Blood NEGATIVE, Urine Nitrite NEGATIVE, Urine Bilirubin NE GATIVE, Urine Urobilinogen 0.2, Urine Leukocyte Esterase NEGATIVE, Urine WBC (Auto) 1, Urine RBC (Auto) 0, Urine Hyaline Casts (Auto) 4, Urine Bacteria (Auto) NEGATIVE, Urine Squamous Epithelial Cells 0, Urine Mucus (Auto) SMALL, Urine Sperm (Auto) 08/19/18 06:24: Nucleated Red Blood Cells % (auto) 0.0, Anion Gap 7L, Glomerular Filtration Rate 42.2, Blood Urea Nitrogen 45H, Creatinine 1.29, Sodium Level 136, Potassium Level 3.6, Chloride Level 93L, Carbon Dioxide Level 36H, Calcium Level 8.1L, Aspartate Amino Transf (AST/SGOT) 21, Alanine Aminotransferase (ALT/SGPT) 32, Al kaline Phosphatase 64, Total Bilirubin 0.6, Total Protein 5.3L, Albumin 2.6L, Albumin/Globulin Ratio 0.96L CBC/BMP Laboratory Tests 08/19/18 06:24 Red Blood Count 2.88 L, Mean Corpuscular Volume 101.0 H, Mean Corpuscular Hemoglobin 33.0, Mean Corpuscular Hemoglobin Concent 32.6, Red Cell Distribution Width 17.6 H, Calcium Level 8.1 L, Aspartate Amino Transf (AST/SGOT) 21, Alanine Aminotransferase (ALT/SGPT) 32, Alkaline Phosphatase 64, Total Bilirubin 0.6, Total Protein 5.3 L, Albumin 2.6 L Betty Lewis Aug 19, 2018 15:44
[2018-08-19] MEDS: ATORVASTATIN 20 MG TAB PO SCH (19:47)
[2018-08-19 20:00] VITALS: BP 115/59
[2018-08-20] MEDS: IPRATROPIUM 0.5MG/ALBUTEROL 2.5MG INH SOL UD 3ML (DUONEB)(J7620) NEB SCH ×5 (03:01→21:51)
[2018-08-20] MEDS: LEVOTHYROXINE 50MCG TABLET (0.05MG) PO SCH (05:22)
[2018-08-20 06:00] VITALS: BP 108/51
[2018-08-20] MEDS: ADVAIR HFA 230/21MCG INHALER INH SCH ×2 (08:02→21:50)
[2018-08-20] MEDS: TIOTROPIUM INHALER/CAPSULE (SPIRIVA) INH SCH (08:02)
[2018-08-20] MEDS: FAMOTIDINE 20 MG TAB PO SCH (08:46)
[2018-08-20] MEDS: ASPIRIN 81 MG CHEW TABLET PO SCH (08:46)
[2018-08-20] MEDS: FERROUS GLUCONATE 324 MG TAB PO SCH ×2 (08:46→20:14)
[2018-08-20] MEDS: GABAPENTIN 100 MG CAP PO SCH ×2 (08:46→20:14)
[2018-08-20] MEDS: PANTOPRAZOLE 40MG TAB (PROTONIX) PO SCH (08:46)
[2018-08-20] MEDS: CANDESARTAN 4MG TABLET PO SCH (08:46)
[2018-08-20] MEDS: predniSONE 20 MG TAB PO SCH (08:46)
[2018-08-20] MEDS: guaiFENesin ER 600 MG TAB PO SCH ×2 (08:46→20:14)
[2018-08-20] MEDS: RIVAROXABAN 15 MG TAB (XARELTO) PO SCH (08:47)
[2018-08-20] MEDS: SPIRONOLACTONE 25 MG TAB PO SCH (08:47)
[2018-08-20] MEDS: BOUDREAUX'S BUTT PASTE 4OZ TOP SCH ×2 (08:51→20:15)
[2018-08-20] MEDS: METOPROLOL TART 25 MG TABLET PO SCH ×2 (08:51→20:15)
[2018-08-20] MEDS: TORSEMIDE 20 MG TAB PO SCH ×2 (08:52→17:34)
[2018-08-20 14:00] VITALS: BP 144/85
--- NOTE | 2018-08-20 14:31 | IPNPDOC ---
Date Seen The patient was seen on 08/20/18. Progress Note HPI: 83Fwith a recent fall with left hip fracture and ORIF in June with post-op Afib now on Xarelto and amiodarone who presented to [facility] ED on 08/09/18 complaining of worsening shortness of breath and cough. Imaging revealed RLL infiltrate. She was evaluated by pulmonology and started on IV antibiotics, IV solumedrol, and transferred to the ICU for worsening respiratory status. She tested positive for the coronavirus. She was evaluated by nephrology for hyponatremia in the setting of hypervolemia and aggressively diuresed. TTE on 08/11/18 with preserved LV systolic function, grade 1 diastolic dysfunction. The pt was transferred to the care of ARU, Dr Luis, 08/15/18. No acute medical complaints today. Denies SOB/cough and states her breathing remains at baseline. Suppl O2 1-2LNC. Denies any fevers, chills, weakness, fatigue, Headache, Chest Pain, Shortness of breath, cough, palpitations, abdominal pain, N/V/D or changes in bowel or bladder habits. PAST MEDICAL HISTORY: 1. Chronic obstructive pulmonary disease (COPD) on 3 liters oxygen supplement at home. 2. Paroxysmal atrial fibrillation on Xarelto. 3. Hypertension. 4. Hypothyroidism. 5. Coronary artery disease status post stenting back in 2008. PAST SURGICAL HISTORY: 1. Left hip open reduction and internal fixation. 2. Cardiac stent. PE: GEN: yo, appears stated age. Well-nourished, well developed. No acute distress. Alert and oriented x 3. Pleasant, interactive. HEENT: Normocephalic, atraumatic. Pupils are equal, round, and reactive to light. Extraocular movements are intact. No nystagmus appreciated. Sclera are nonicteric. Conjunctiva without injection. MMM. CHEST: Regular rate and rhythm, +S1, +S2 LUNGS: Decreased A/E. No wheezes, rales, or rhonchi. ABD: Round, soft, non-tender, non-distended. +Bowel sounds throughout. EXT: No lower extremity edema appreciated. SKIN: [place], dry, warm. No rashes. NEURO: Alert and oriented x 3. No focal deficits appreciated. A&P: 83Fwith a recent fall with left hip fracture and ORIF in June with post-op Afib now on Xarelto and amiodarone who presented to [facility] ED on 08/09/18 complaining of worsening shortness of breath and cough. Imaging revealed RLL infiltrate. She was evaluated by pulmonology and started on IV antibiotics, IV solumedrol, and transferred to the ICU for worsening respiratory status. She tested positive for the coronavirus. She was evaluated by nephrology for hyponatremia in the setting of hypervolemia and aggressively diuresed. TTE on 08/11/18 with preserved LV systolic function, grade 1 diastolic dys function. The pt was transferred to the care of Dr Toby ABRAMS, 08/15/18. 1. Gait instability and general deconditioning. Mgmt as per Dr Toby ABRAMS. PT/OT/ST as per Dr Toby ABRAMS. Pain control as per Dr Toby ABRAMS. Bowel care as per Dr Toby ABRAMS. Disposition as per Dr Toby ABRAMS. DVT prophylaxis. Pt is on Xarelto. 2. Acute respiratory distress with chronic hypoxic respiratory failure secondary to acute chronic obstructive pulmonary disease (COPD) exacerbation due to right lower lobe pneumonia and coronavirus. The patient will completed cefdinir (end day August 18, 2018). Continue with prednisone tapering dose. Continue Advair, nebs, oxygen supplementation. 3. Acute decompensated diastolic congestive heart failure with severe pulmonary artery hypertension. Continue FR. Continue torsemide and aldactone. Continue candesartan and aspirin. Appears compensated. SCr 1.29. 4. Hyponatremia. Resolved. Initially nephrology was involved while inpatient. Fluid restriction 1.5 liters, Continue torsemide and aldactone as ordered. 5. History of paroxysmal atrial fibrillation. Continue Xarelto, Lopressor and amiodarone. 6. Hypertension. Continue torsemide, aldactone, candesartan, Lopressor. Monitor blood pressure. 7. Coronary artery disease. Continue medications mentioned above. 8. History of left hip fracture status post repair. PT/OT. 9. History of coronary artery disease. Continue Metoprolol, aspirin and patient on Xarelto as well. Outpatient followup. 10. Dyslipidemia. Continue statin and aspirin. 11. DVT prophylaxis. Patient on Xarelto for atrial fibrillation. VS, I&O, 24H, Fishbone Vital Signs/I&O Vital Signs Date Time Temp Pulse Resp B/P (MAP) Pulse Ox O2 Delivery O2 Flow Rate FiO2 08/20/18 09:00 1.0 08/20/18 08:51 60 103/52 08/20/18 06:00 98.1 18 97 08/19/18 11:29 Nasal Cannula I&O- Last 24 Hours up to 6 AM 08/20/18 06:00 Intake Total 780 ml Output Total 500 ml Balance 280 ml Betty Lewis Aug 20, 2018 14:31
[2018-08-20 17:33] VITALS: BP 108/63
[2018-08-20 20:00] VITALS: BP 110/57
[2018-08-20] MEDS: ATORVASTATIN 20 MG TAB PO SCH (20:14)
--- NOTE | 2018-08-20 20:45 | IPNPDOC ---
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 REVIEW OF SYSTEMS: The following is a completed review of systems and has been reviewed. Review of systems otherwise unremarkable. PAIN: Patient self reports no pain EYES: Negative for recent vision changes EARS, NOSE, & THROAT: no throat pain rhinorrhea or dysphagia CARDIOVASCULAR: denies chest pain or palpitations PULMONARY: Negative. +exertional dyspnea GASTROINTESTINAL: Negative for constipation, +loose stool GENITOURINARY: no dysuria MUSCULOSKELETAL: s/p left hip ORIF NEUROLOGICAL: no focal deficit, seizure/tremor HEMATOLOGICAL: +anemia SKIN:scattered ecchymosis PSYCHIATRIC: Unremarkable PHYSICAL EXAMINATION: VITAL SIGNS: Please see below. GENERAL: Pleasant and cooperative. No acute distress. on nasal canula HEENT: PERRL. Extraocular movements intact. Clear conjunctiva CARDIOVASCULAR:[Regular rate and rhythm. No murmurs, rubs, or gallops LUNGS: scattered Rhonchi . No wheezes. ABDOMEN: Soft, nontender, nondistended. Positive bowel sounds. Normal active bowel sounds NEUROLOGICAL: Alert and oriented times three. Cranial nerves II through XII grossly intact. Sensation grossly intact EXTREMITIES: 4+\5 strength bilateral upper extremities. 4+\5 strength right lower extremity. 4+/5 strength in left lower extremity. bilateral pedal edema SKIN: intact ASSESSMENT:83-year-old F with past medical history of CAD, CHF, Afib, COPD who presents status post COPD exacerbation and acute on chronic CHF. PLAN: 1. Rehab: PT/OT, assess for DME, use energy conservation techniques, [employer] for possible cognitive decline 2. Neuro: stable 3. Cardio: recent acute on chronic diastolic CHF, continue Torsemide, Aldactone, fluid restrict to 1500cc/day, monitor electrolyte-medicine consulted -pmh Afib on Xarelto and Amiodarone and metoprolol 4. Resp: pmh COPD s/p acute hypoxic respiratory failure +Coronavirus, s/p IV antibiotics, s/p3 day course of Cefdinir and on steroid taper, continue daily breathing treatment, reports she was not on home 02, will attempt to wean 5. Endo: pmh hyopthyroidism-synthroid 6. GI ppx: pepcid and protonix 7. DVT ppx on xarelto 8. : admission UA and Ucx negative, monitor PVRs 9. DIspo: TBD Allergies Coded Allergies: No Known Drug Allergy (Verified Allergy, Unknown, 09/22/12) Vital Signs Vital Signs Date Time Temp Pulse Resp B/P (MAP) Pulse Ox O2 Delivery O2 Flow Rate FiO2 08/20/18 20:15 115 110/57 08/20/18 20:00 98.3 18 96 3.0 08/19/18 11:29 Nasal Cannula Current Medications Current Medications Current Medications Acetaminophen (Tylenol Tab) 650 mg Q4HP PRN PO MILD PAIN (PS 1-4); Start 08/15/18 at 16:30 Albuterol/ Ipratropium (Duoneb (Ipr 0.5mg/Alb 2.5mg)) 3 ml RQ4H NEB Last administered on 08/20/18 15:31; Start 08/15/18 at 20:00 Amiodarone HCl (Pacerone, Cordarone) 200 mg Q2D@0900 PO Last administered on 08/19/18 08:41; Start 08/17/18 at 09:00 Aspirin (Aspirin Chewable) 81 mg DAILY PO Last administered on 08/20/18 08:46; Start 08/16/18 at 09:00 Atorvastatin Calcium (Lipitor) 40 mg QHS PO Last administered on 08/20/18 20:14; Start 08/15/18 at 21:00 Candesartan Cilexetil (Atacand) 4 mg DAILY PO Last administered on 08/20/18 08:46; Start 08/16/18 at 09:00 Cefdinir (Omnicef) 300 mg BID PO Last administered on 08/18/18 20:25; Start 08/15/18 at 21:00; Stop 08/18/18 at 23:00; Status DC Famotidine (Pepcid) 20 mg DAILY PO Last administered on 08/20/18 08:46; Start 08/16/18 at 09:00 Ferrous Gluconate (Fergon) 324 mg BID PO Last administered on 08/20/18 20:14; Start 08/15/18 at 21:00 Gabapentin (Neurontin) 200 mg BID PO Last administered on 08/20/18 20:14; Start 08/15/18 at 21:00 Guaifenesin (Mucinex Tab Er) 600 mg BID PO Last administered on 08/20/18 20:14; Start 08/15/18 at 21:00 Levothyroxine Sodium (Synthroid) 50 mcg DAILY@06 PO Last administered on 08/20/18 05:22; Start 08/16/18 at 06:00 Methylprednisolone (SOLU medrol) 40 mg Q12H IV Last administered on 08/16/18 02:17; Start 08/16/18 at 03:00; Stop 08/16/18 at 10:53; Status DC Metoprolol Tartrate (Lopressor) 75 mg BID PO Last administered on 08/20/18 20:15; Start 08/15/18 at 21:00 Ondansetron HCl (Zofran) 4 mg Q6HP PRN PO NAUSEA; Start 08/15/18 at 16:30 Pantoprazole Sodium (Protonix) 40 mg DAILY IV ; Start 08/16/18 at 09:00; Stop 08/16/18 at 10:53; Status DC Pantoprazole Sodium (Protonix) 40 mg DAILY PO Last administered on 08/20/18 08:46; Start 08/16/18 at 09:00 Prednisone (Deltasone) 40 mg DAILY PO Last administered on 08/20/18 08:46; Start 08/20/18 at 09:00 Prednisone (Deltasone) 50 mg DAILY PO Last administered on 08/19/18 08:41; St art 08/18/18 at 09:00; Stop 08/19/18 at 11:48; Status DC Prednisone (Deltasone) 60 mg DAILY PO Last administered on 08/17/18 07:59; Start 08/16/18 at 09:00; Stop 08/17/18 at 13:04; Status DC Rivaroxaban (Xarelto) 15 mg DAILY@0800 PO Last administered on 08/20/18 08:47; Start 08/16/18 at 08:00 Salmeterol Xinafoate/ Fluticasone (Advair Hfa 230/ 21) 2 puff BID INH Last administered on 08/20/18 08:02; Start 08/15/18 at 21:00 Spironolactone (Aldactone) 25 mg QAM PO Last administered on 08/20/18 08:47; Start 08/16/18 at 09:00 Tiotropium [place] (Spiriva Handihaler) 1 inhalation DAILY@08 INH Last administered on 08/20/18at 08:02; Start 08/16/18 at 08:00 Torsemide (Demadex) 20 mg BID@09,17 PO Last administered on 08/19/18 17:25; Start 08/15/18 at 17:00 Zinc Oxide (Boudreauxs Butt Paste) sacrum BID TOP Last administered on 08/20/18at 20:15; Start 08/15/18 at 21:00 KARLY MCKINNEY MD Aug 20, 2018 20:45
--- NOTE | 2018-08-20 20:47 | IPNPDOC ---
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 REVIEW OF SYSTEMS: The following is a completed review of systems and has been reviewed. Review of systems otherwise unremarkable. PAIN: Patient self reports no pain EYES: Negative for recent vision changes EARS, NOSE, & THROAT: no throat pain rhinorrhea or dysphagia CARDIOVASCULAR: denies chest pain or palpitations PULMONARY: Negative. +exertional dyspnea GASTROINTESTINAL: Negative for constipation, +loose stool GENITOURINARY: no dysuria MUSCULOSKELETAL: s/p left hip ORIF NEUROLOGICAL: no focal deficit, seizure/tremor HEMATOLOGICAL: +anemia SKIN:scattered ecchymosis PSYCHIATRIC: Unremarkable PHYSICAL EXAMINATION: VITAL SIGNS: Please see below. GENERAL: Pleasant and cooperative. No acute distress. on nasal canula HEENT: PERRL. Extraocular movements intact. Clear conjunctiva CARDIOVASCULAR:[Regular rate and rhythm. No murmurs, rubs, or gallops LUNGS: scattered Rhonchi . No wheezes. ABDOMEN: Soft, nontender, nondistended. Positive bowel sounds. Normal active bowel sounds NEUROLOGICAL: Alert and oriented times three. Cranial nerves II through XII grossly intact. Sensation grossly intact EXTREMITIES: 4+\5 strength bilateral upper extremities. 4+\5 strength right lower extremity. 4+/5 strength in left lower extremity. bilateral pedal edema SKIN: intact ASSESSMENT:83-year-old F with past medical history of CAD, CHF, Afib, COPD who presents status post COPD exacerbation and acute on chronic CHF. PLAN: 1. 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 Neuro: stable, recent CTH shows volume loss and chronic changes, no infarct 3. Cardio: recent acute on chronic diastolic CHF, continue Torsemide, Aldactone, fluid restrict to 1500cc/day, monitor electrolyte-medicine consulted -pmh Afib on Xarelto and Amiodarone and metoprolol 4. Resp: pmh COPD s/p acute hypoxic respiratory failure +Coronavirus, s/p IV antibiotics, s/p3 day course of Cefdinir and on steroid taper, continue daily breathing treatment, reports she was not on home 02, will attempt to wean 5. Endo: pmh hyopthyroidism-synthroid 6. GI ppx: pepcid and protonix 7. DVT ppx on xarelto 8. : admission UA and Ucx negative, monitor PVRs 9. DIspo: TBD Allergies Coded Allergies: No Known Drug Allergy (Verified Allergy, Unknown, 09/22/12) Vital Signs Vital Signs Date Time Temp Pulse Resp B/P (MAP) Pulse Ox O2 Delivery O2 Flow Rate FiO2 08/20/18 20:15 115 110/57 08/20/18 20:00 98.3 18 96 3.0 08/19/18 11:29 Nasal Cannula Current Medications Current Medications Current Medications Acetaminophen (Tylenol Tab) 650 mg Q4HP PRN PO MILD PAIN (PS 1-4); Start 08/15/18 at 16:30 Albuterol/ Ipratropium (Duoneb (Ipr 0.5mg/Alb 2.5mg)) 3 ml RQ4H NEB Last administered on 08/20/18 15:31; Start 08/15/18 at 20:00 Amiodarone HCl (Pacerone, Cordarone) 200 mg Q2D@0900 PO Last administered on 08/19/18 08:41; Start 08/17/18 at 09:00 Aspirin (Aspirin Chewable) 81 mg DAILY PO Last administered on 08/20/18 08:46; Start 08/16/18 at 09:00 Atorvastatin Calcium (Lipitor) 40 mg QHS PO Last administered on 08/20/18 20:14; Start 08/15/18 at 21:00 Candesartan Cilexetil (Atacand) 4 mg DAILY PO Last administered on 08/20/18 08: 46; Start 08/16/18 at 09:00 Cefdinir (Omnicef) 300 mg BID PO Last administered on 08/18/18 20:25; Start 08/15/18 at 21:00; Stop 08/18/18 at 23:00; Status DC Famotidine (Pepcid) 20 mg DAILY PO Last administered on 08/20/18 08:46; Start 08/16/18 at 09:00 Ferrous Gluconate (Fergon) 324 mg BID PO Last administered on 08/20/18 20:14; Start 08/15/18 at 21:00 Gabapentin (Neurontin) 200 mg BID PO Last administered on 08/20/18 20:14; Start 08/15/18 at 21:00 Guaifenesin (Mucinex Tab Er) 600 mg BID PO Last administered on 08/20/18 20:14; Start 08/15/18 at 21:00 Levothyroxine Sodium (Synthroid) 50 mcg DAILY@06 PO Last administered on 08/20/18 05:22; Start 08/16/18 at 06:00 Methylprednisolone (SOLU medrol) 40 mg Q12H IV Last administered on 08/16/18 02:17; Start 08/16/18 at 03:00; Stop 08/16/18 at 10:53; Status DC Metoprolol Tartrate (Lopressor) 75 mg BID PO Last administered on 08/20/18 20:15; Start 08/15/18 at 21:00 Ondansetron HCl (Zofran) 4 mg Q6HP PRN PO NAUSEA; Start 08/15/18 at 16:30 Pantoprazole Sodium (Protonix) 40 mg DAILY IV ; Start 08/16/18 at 09:00; Stop 08/16/18 at 10:53; Status DC Pantoprazole Sodium (Protonix) 40 mg DAILY PO Last administered on 08/20/18 08:46; Start 08/16/18 at 09:00 Prednisone (Deltasone) 40 mg DAILY PO Last administered on 08/20/18 08:46; Start 08/20/18 at 09:00 Prednisone (Deltasone) 50 mg DAILY PO Last administered on 08/19/18 08:41; Start 08/18/18 at 09:00; Stop 08/19/18 at 11:48; Status DC Prednisone (Deltasone) 60 mg DAILY PO Last administered on 08/17/18 07:59; Start 08/16/18 at 09:00; Stop 08/17/18 at 13:04; Status DC Rivaroxaban (Xarelto) 15 mg DAILY@0800 PO Last administered on 08/20/18 08:47; Start 08/16/18 at 08:00 Salmeterol Xinafoate/ Fluticasone (Advair Hfa 230/ 21) 2 puff BID INH Last administered on 08/20/18 08:02; Start 08/15/18 at 21:00 Spironolactone (Aldactone) 25 mg QAM PO Last administered on 08/20/18 08:47; Start 08/16/18 at 09:00 Tiotropium [place] (Spiriva Handihaler) 1 inhalation DAILY@08 INH Last administered on 08/20/18at 08:02; Start 08/16/18 at 08:00 Torsemide (Demadex) 20 mg BID@09,17 PO Last administered on 08/19/18 17:25; Start 08/15/18 at 17:00 Zinc Oxide (Boudreauxs Butt Paste) sacrum BID TOP Last administered on 08/20/18at 20:15; Start 08/15/18 at 21:00 KARLY MCKINNEY MD Aug 20, 2018 20:47
[2018-08-21] MEDS: IPRATROPIUM 0.5MG/ALBUTEROL 2.5MG INH SOL UD 3ML (DUONEB)(J7620) NEB SCH ×6 (04:00→20:00)
[2018-08-21] MEDS: LEVOTHYROXINE 50MCG TABLET (0.05MG) PO SCH (05:32)
[2018-08-21 06:00] VITALS: BP 131/60
[2018-08-21] MEDS: TIOTROPIUM INHALER/CAPSULE (SPIRIVA) INH SCH (07:25)
[2018-08-21] MEDS: ADVAIR HFA 230/21MCG INHALER INH SCH ×2 (07:26→20:38)
[2018-08-21] MEDS: guaiFENesin ER 600 MG TAB PO SCH ×2 (10:01→22:04)
[2018-08-21] MEDS: FAMOTIDINE 20 MG TAB PO SCH (10:01)
[2018-08-21] MEDS: ASPIRIN 81 MG CHEW TABLET PO SCH (10:01)
[2018-08-21] MEDS: TORSEMIDE 20 MG TAB PO SCH ×2 (10:01→16:26)
[2018-08-21] MEDS: METOPROLOL TART 25 MG TABLET PO SCH ×2 (10:02→21:00)
[2018-08-21] MEDS: RIVAROXABAN 15 MG TAB (XARELTO) PO SCH (10:04)
[2018-08-21] MEDS: GABAPENTIN 100 MG CAP PO SCH ×2 (10:04→22:04)
[2018-08-21] MEDS: FERROUS GLUCONATE 324 MG TAB PO SCH ×2 (10:05→22:04)
[2018-08-21] MEDS: CANDESARTAN 4MG TABLET PO SCH (10:05)
[2018-08-21] MEDS: SPIRONOLACTONE 25 MG TAB PO SCH (10:06)
[2018-08-21] MEDS: predniSONE 20 MG TAB PO SCH (10:06)
[2018-08-21] MEDS: PANTOPRAZOLE 40MG TAB (PROTONIX) PO SCH (10:07)
[2018-08-21] MEDS: AMIODARONE 200 MG TAB (PACERONE) PO SCH (10:07)
[2018-08-21] MEDS: BOUDREAUX'S BUTT PASTE 4OZ TOP SCH ×2 (10:07→22:04)
--- NOTE | 2018-08-21 15:21 | IPNPDOC ---
Date Seen The patient was seen on 08/21/18. Progress Note HPI: 83Fwith a recent fall with left hip fracture and ORIF in June with post-op Afib now on Xarelto and amiodarone who presented to [facility] ED on 08/09/18 complaining of worsening shortness of breath and cough. Imaging revealed RLL infiltrate. She was evaluated by pulmonology and started on IV antibiotics, IV solumedrol, and transferred to the ICU for worsening respiratory status. She tested positive for the coronavirus. She was evaluated by nephrology for hyponatremia in the setting of hypervolemia and aggressively diuresed. TTE on 08/11/18 with preserved LV systolic function, grade 1 diastolic dysfunction. The pt was transferred to the care of ARU, Dr Luis, 08/15/18. No acute medical complaints today. Denies SOB/cough and states her breathing remains at baseline. Suppl O2 1-2LNC. Denies any fevers, chills, weakness, fatigue, Headache, Chest Pain, Shortness of breath, cough, palpitations, abdominal pain, N/V/D or changes in bowel or bladder habits. PAST MEDICAL HISTORY: 1. Chronic obstructive pulmonary disease (COPD) on 3 liters oxygen supplement at home. 2. Paroxysmal atrial fibrillation on Xarelto. 3. Hypertension. 4. Hypothyroidism. 5. Coronary artery disease status post stenting back in 2008. PAST SURGICAL HISTORY: 1. Left hip open reduction and internal fixation. 2. Cardiac stent. PE: GEN: yo, appears stated age. Well-nourished, well developed. No acute distress. Alert and oriented x 3. Pleasant, interactive. HEENT: Normocephalic, atraumatic. Pupils are equal, round, and reactive to light. Extraocular movements are intact. No nystagmus appreciated. Sclera are nonicteric. Conjunctiva without injection. MMM. CHEST: Regular rate and rhythm, +S1, +S2 LUNGS: Decreased A/E. No wheezes, rales, or rhonchi. ABD: Round, soft, non-tender, non-distended. +Bowel sounds throughout. EXT: No lower extremity edema appreciated. SKIN: [place]ridge, dry, warm. No rashes. NEURO: Alert and oriented x 3. No focal deficits appreciated. A&P: 83Fwith a recent fall with left hip fracture and ORIF in June with post-op Afib now on Xarelto and amiodarone who presented to [facility] ED on 08/09/18 complaining of worsening shortness of breath and cough. Imaging revealed RLL infiltrate. She was evaluated by pulmonology and started on IV antibiotics, IV Solumedrol, and transferred to the ICU for worsening respiratory status. She tested positive for the coronavirus. She was evaluated by nephrology for hyponatremia in the setting of hypervolemia and aggressively diuresed. TTE on 08/11/18 with preserved LV systolic function, grade 1 diastolic dys function. The pt was transferred to the care of Dr Toby ABRAMS, 08/15/18. 1. Gait instability and general deconditioning. Mgmt as per Dr Toby ABRAMS. PT/OT/ST as per Dr Toby ABRAMS. Pain control as per Dr Toby ABRAMS. Bowel care as per Dr Toby ABRAMS. Disposition as per Dr Toby ABRAMS. DVT prophylaxis. Pt is on Xarelto. 2. Acute respiratory distress with chronic hypoxic respiratory failure secondary to acute chronic obstructive pulmonary disease (COPD) exacerbation due to right lower lobe pneumonia and coronavirus. The patient completed cefdinir August 18, 2018. Continue with prednisone tapering dose. Continue Advair, nebs, oxygen supplementation. 3. Acute decompensated diastolic congestive heart failure with severe pulmonary artery hypertension. Continue FR. Continue torsemide and aldactone. Continue candesartan and aspirin. Appears compensated. SCr 1.29. BMP in AM. 4. Hyponatremia. Resolved. Initially nephrology was involved while inpatient. Fluid restriction 1.5 liters, Continue torsemide and aldactone as ordered. 5. History of paroxysmal atrial fibrillation. Continue Xarelto, Lopressor and amiodarone. 6. Hypertension. Continue torsemide, aldactone, candesartan, Lopressor. Monitor blood pressure. 7. Coronary artery disease. Continue medications mentioned above. 8. History of left hip fracture status post repair. PT/OT. 9. History of coronary artery disease. Continue Metoprolol, aspirin and patient on Xarelto as well. Outpatient followup. 10. Dyslipidemia. Continue statin and aspirin. 11. DVT prophylaxis. Patient on Xarelto for atrial fibrillation. VS, I&O, 24H, Fishbone Vital Signs/I&O Vital Signs Date Time Temp Pulse Resp B/P (MAP) Pulse Ox O2 Delivery O2 Flow Rate FiO2 08/21/18 10:02 72 131/60 08/21/18 08:00 1.0 08/21/18 07:26 12 08/21/18 06:00 97.4 96 08/19/18 11:29 Nasal Cannula I&O- Last 24 Hours up to 6 AM 08/21/18 05:59 Intake Total 920 ml Output Total 0 ml Balance 920 ml Betty Lewis Aug 21, 2018 15:21
[2018-08-21 20:00] VITALS: BP 99/62
[2018-08-21] MEDS: ATORVASTATIN 20 MG TAB PO SCH (22:04)
[2018-08-22] MEDS: IPRATROPIUM 0.5MG/ALBUTEROL 2.5MG INH SOL UD 3ML (DUONEB)(J7620) NEB SCH ×7 (04:00→23:23)
[2018-08-22] MEDS: LEVOTHYROXINE 50MCG TABLET (0.05MG) PO SCH (05:42)
[2018-08-22 06:00] VITALS: BP 127/61
[2018-08-22 07:15] LABS: BASO % 0.1 % (0.0-1.0); EOS # 0.1 10^3/uL (0.0-0.50); EOS % 0.9 % (0.0-3.0); HEMATOCRIT 28.7 % (36.0-47.0); HEMOGLOBIN 9.5 g/dl (12.0-15.5); LYMPH % 15.5 % (24.0-44.0); MEAN CORPUSCULAR HGB CONC 33.1 g/dl (32.0-36.5); MEAN CORPUSCULAR VOLUME 99.7 fl (80.0-96.0); MONO # 0.8 10^3/uL (0.0-0.8); MONO % 6.2 % (0.0-5.0); NEUTROPHILS # 9.9 10^3/uL (1.8-7.7); NEUTROPHILS % 76.9 % (36.0-66.0); PLATELET COUNT, AUTOMATED 201 10^3/uL (150-450); RED BLOOD COUNT 2.88 10^6/uL (4.00-5.40); WHITE BLOOD COUNT 12.8 10^3/uL (4.0-10.0)
[2018-08-22] MEDS: TIOTROPIUM INHALER/CAPSULE (SPIRIVA) INH SCH (07:23)
[2018-08-22] MEDS: ADVAIR HFA 230/21MCG INHALER INH SCH ×2 (07:24→20:03)
[2018-08-22 07:40] LABS: CALCIUM LEVEL 7.6 MG/DL (8.8-10.2); CREATININE FOR GFR 1.23 MG/DL (0.55-1.30); GLOMERULAR FILTRATION RATE 44.6 (>32); POTASSIUM SERUM 3.3 MEQ/L (3.5-5.1)
[2018-08-22] MEDS: FERROUS GLUCONATE 324 MG TAB PO SCH ×2 (08:42→20:45)
[2018-08-22] MEDS: CANDESARTAN 4MG TABLET PO SCH (08:42)
[2018-08-22] MEDS: guaiFENesin ER 600 MG TAB PO SCH ×2 (08:42→20:44)
[2018-08-22] MEDS: PANTOPRAZOLE 40MG TAB (PROTONIX) PO SCH (08:42)
[2018-08-22] MEDS: ASPIRIN 81 MG CHEW TABLET PO SCH (08:42)
[2018-08-22] MEDS: RIVAROXABAN 15 MG TAB (XARELTO) PO SCH (08:42)
[2018-08-22] MEDS: FAMOTIDINE 20 MG TAB PO SCH (08:43)
[2018-08-22] MEDS: TORSEMIDE 20 MG TAB PO SCH ×2 (08:43→18:25)
[2018-08-22] MEDS: SPIRONOLACTONE 25 MG TAB PO SCH (08:43)
[2018-08-22] MEDS: METOPROLOL TART 25 MG TABLET PO SCH (08:43)
[2018-08-22] MEDS: GABAPENTIN 100 MG CAP PO SCH ×2 (08:43→20:42)
[2018-08-22] MEDS: predniSONE 20 MG TAB PO SCH (08:43)
[2018-08-22] MEDS: BOUDREAUX'S BUTT PASTE 4OZ TOP SCH ×2 (08:44→20:47)
[2018-08-22] MEDS ORDERED: POTASSIUM CHLORIDE 10 MEQ SR TABLET PO ONE (09:30)
[2018-08-22 14:00] VITALS: BP 118/59
[2018-08-22] MEDS ORDERED: ONDANSETRON 4 MG ORAL DISINTEGRATING TAB (Q0162 PER 1MG) PO PRN (16:15)
--- NOTE | 2018-08-22 17:38 | IPNPDOC ---
PM&R Progress Note DATE OF SERVICE: Aug 22, 2018 Junior Underwriter Progress Note Subjective: Patient seen in therapy after reports of orthostatic hypotension dry heaving states she had a bowel movement today and feels less dizzy. Later seen in room after having vomited up food. Zofran ordered. REVIEW OF SYSTEMS: The following is a completed review of systems and has been reviewed. Review of systems otherwise unremarkable. PAIN: Patient self reports no pain EYES: Negative for recent vision changes EARS, NOSE, & THROAT: no throat pain rhinorrhea or dysphagia CARDIOVASCULAR: denies chest pain or palpitations PULMONARY: Negative. +exertional dyspnea GASTROINTESTINAL: Negative for constipation, +loose stool GENITOURINARY: no dysuria MUSCULOSKELETAL: s/p left hip ORIF NEUROLOGICAL: no focal deficit, seizure/tremor HEMATOLOGICAL: +anemia SKIN:scattered ecchymosis PSYCHIATRIC: Unremarkable PHYSICAL EXAMINATION: VITAL SIGNS: Please see below. GENERAL: Pleasant and cooperative. No acute distress. HEENT: PERRL. Extraocular movements intact. Clear conjunctiva CARDIOVASCULAR:Regular rate and rhythm. No murmurs, rubs, or gallops LUNGS: Mostly CTA, no rhonchi/wheezes. decreased breath sounds at bases ABDOMEN: Soft, nontender, nondistended. Positive bowel sounds. Normal active bowel sounds NEUROLOGICAL: Alert and oriented times three. Cranial nerves II through XII grossly intact. Sensation grossly intact EXTREMITIES: 4+\5 strength bilateral upper extremities. 4+\5 strength right lower extremity. 4+/5 strength in left lower extremity. bilateral pedal edema SKIN: intact ASSESSMENT:83-year-old F with past medical history of CAD, CHF, Afib, COPD who presents status post COPD exacerbation and acute on chronic CHF. PLAN: 1. Rehab: PT/OT, assess for DME, use energy conservation techniques, [employer] for questionable cognitive decline, ambulating well 2. Neuro: stable, recent CTH shows volume loss and chronic changes, no infarct 3. Cardio: recent acute on chronic diastolic CHF, continue Torsemide, Aldactone, fluid restrict to 1500cc/day, monitor electrolyte-medicine consulted -pmh Afib on Xarelto and Amiodarone and metoprolol- will lower metoprolol dosing for symptomatic orthostatics today 4. Resp: pmh COPD s/p acute hypoxic respiratory failure +Coronavirus, s/p IV antibiotics, s/p3 day course of Cefdinir and on steroid taper, continue daily breathing treatment, reports she was not on home 02, patient weaned today 5. Endo: pmh hypothyroidism-synthroid 6. GI ppx: pepcid and protonix -episode of vomiting today with nausea, with loose stools, mild leukocytosis today will recheck UA 7. DVT ppx on xarelto 8. : admission UA and Ucx negative, monitor PVRs 9. DIspo: 08/27/18 to home, progressing towards goals Allergies Coded Allergies: No Known Drug Allergy (Verified Allergy, Unknown, 09/22/12) Vital Signs Vital Signs Date Time Temp Pulse Resp B/P (MAP) Pulse Ox O2 Delivery O2 Flow Rate FiO2 08/22/18 14:00 98.3 73 16 118/59 (78) 93 3.0 08/21/18 20:38 Nasal Cannula Laboratory Data CBC/BMP Laboratory Tests 08/22/18 06:52 Red Blood Count 2.88 L, Mean Corpuscular Volume 99.7 H, Mean Corpuscular Hemoglobin 33.0, Mean Corpuscular Hemoglobin Concent 33.1, Red Cell Distribution Width 17.5 H, Neutrophils (%) (Auto) 76.9 H, Lymphocytes (%) (Auto) 15.5 L, Monocytes (%) (Auto) 6.2 H, Eosinophils (%) (Auto) 0.9, Basophils (%) (Auto) 0.1, Neutrophils # (Auto) 9.9 H, Lymphocytes # (Auto) 2.0, Monocytes # (Auto) 0.8, Eosinophils # (Auto) 0.1, Basophils # (Auto) 0.0, Calcium Level 7.6 L Labs 24H Laboratory Tests 2 08/22/18 06:52: Immature Granulocyte % (Auto) 0.4, White Blood Count 12.8H, Red Blood Count 2.88L, Hemoglobin 9.5L, Hematocrit 28.7L, Mean Corpuscular Volume 99.7H, Mean Corpuscular Hemoglobin 33.0, Mean Corpuscular Hemoglobin Concent 33.1, Red Cell Distribution Width 17.5H, Platelet Count 201, Neutrophils (%) (Auto) 76.9H, Lymphocytes (%) (Auto) 15.5L, Monocytes (%) (Auto) 6.2H, Eosinophils (%) (Auto) 0.9, Basophils (%) (Auto) 0.1, Neutrophils # (Auto) 9.9H, Lymphocytes # (Auto) 2.0, Monocytes # (Auto) 0.8, Eosinophils # (Auto) 0.1, Basophils # (Auto) 0.0, Nucleated Red Blood Cells % (auto) 0.0, Anion Gap 8, Glomerular Filtration Rate 44.6, Blood Urea Nitrogen 45H, Creatinine 1.23, Sodium Level 142, Potassium Level 3.3L, Chloride Level 100, Carbon Dioxide Level 34H, Calcium Level 7.6L Current Medications Current Medications Current Medications Acetaminophen (Tylenol Tab) 650 mg Q4HP PRN PO MILD PAIN (PS 1-4); Start 08/15/18 at 16:30 Albuterol/ Ipratropium (Duoneb (Ipr 0.5mg/Alb 2.5mg)) 3 ml RQ4H NEB Last administered on 08/22/18 15:07; Start 08/15/18 at 20:00 Amiodarone HCl (Pacerone, Cordarone) 200 mg Q2D@0900 PO Last administered on 08/21/18 10:07; Start 08/17/18 at 09:00 Aspirin (Aspirin Chewable) 81 mg DAILY PO Last administered on 08/22/18 08:42; Start 08/16/18 at 09:00 Atorvastatin Calcium (Lipitor) 40 mg QHS PO Last administered on 08/21/18 22:04; Start 08/15/18 at 21:00 Candesartan Cilexetil (Atacand) 4 mg DAILY PO Last administered on 08/22/18 08:42; Start 08/16/18 at 09:00 Cefdinir (Omnicef) 300 mg BID PO Last administered on 08/18/18 20:25; Start 08/15/18 at 21:00; Stop 08/18/18 at 23:00; Status DC Famotidine (Pepcid) 20 mg DAILY PO Last administered on 08/22/18 08:43; Start 08/16/18 at 09:00 Ferrous Gluconate (Fergon) 324 mg BID PO Last administered on 08/22/18 08:42; Start 08/15/18 at 21:00 Gabapentin (Neurontin) 200 mg BID PO Last administered on 08/22/18 08:43; Start 08/15/18 at 21:00 Guaifenesin (Mucinex Tab Er) 600 mg BID PO Last administered on 08/22/18 08:42; Start 08/15/18 at 21:00 Levothyroxine Sodium (Synthroid) 50 mcg DAILY@06 PO Last administered on 08/22/18 05:42; Start 08/16/18 at 06:00 Methylprednisolone (SOLU medrol) 40 mg Q12H IV Last administered on 08/16/18 02:17; Start 08/16/18 at 03:00; Stop 08/16/18 at 10:53; Status DC Metoprolol Tartrate (Lopressor) 25 mg BID PO ; Start 08/22/18 at 21:00 Metoprolol Tartrate (Lopressor) 75 mg BID PO Last administered on 08/22/18 08:43; Start 08/15/18 at 21:00; Stop 08/22/18 at 13:26; Status DC Miscellaneous (Unresolved Clarification Entry) SEE LABEL COMMENTS DAILY XX ; Start 08/22/18 at 09:00; Stop 08/22/18 at 09:30; Status DC Ondansetron HCl (Zofran Odt) 4 mg Q4HP PRN PO NAUSEA OR VOMITING Last administered on 08/22/18 16:58; Start 08/22/18 at 16:15 Ondansetron HCl (Zofran) 4 mg Q6HP PRN PO NAUSEA; Start 08/15/18 at 16:30; Stop 08/22/18 at 16:14; Status DC Pantoprazole Sodium (Protonix) 40 mg DAILY IV ; Start 08/16/18 at 09:00; Stop 08/16/18 at 10:53; Status DC Pantoprazole Sodium (Protonix) 40 mg DAILY PO Last administered on 08/22/18 08:42; Start 08/16/18 at 09:00 Prednisone (Deltasone) 40 mg DAILY PO Last administered on 08/22/18 08:43; Start 08/20/18 at 09:00 Prednisone (Deltasone) 50 mg DAILY PO Last administered on 08/19/18 08:41; Start 08/18/18 at 09:00; Stop 08/19/18 at 11:48; Status DC Prednisone (Deltasone) 60 mg DAILY PO Last administered on 08/17/18 07:59; Start 08/16/18 at 09:00; Stop 08/17/18 at 13:04; Status DC Rivaroxaban (Xarelto) 15 mg DAILY@0800 PO Last administered on 08/22/18 08:42; Start 08/16/18 at 08:00 Salmeterol Xinafoate/ Fluticasone (Advair Hfa 230/ 21) 2 puff BID INH Last administered on 08/22/18 07:24; Start 08/15/18 at 21:00 Spironolactone (Aldactone) 25 mg QAM PO Last administered on 08/22/18 08:43; Start 08/16/18 at 09:00 Tiotropium [place] (Spiriva Handihaler) 1 inhalation DAILY@08 INH Last administered on 08/22/18 07:23; Start 08/16/18 at 08:00 Torsemide (Demadex) 20 mg BID@09,17 PO Last administered on 08/22/18 08:43; Start 08/15/18 at 17:00 Zinc Oxide (Boudreauxs Butt Paste) sacrum BID TOP Last administered on 08/22/18 08:44; Start 08/15/18 at 21:00 KARLY MCKINNEY MD Aug 22, 2018 17:38
[2018-08-22 20:13] VITALS: BP 162/88
[2018-08-22 20:43] VITALS: BP 162/88
[2018-08-22] MEDS: ATORVASTATIN 20 MG TAB PO SCH (20:44)
[2018-08-22] MEDS ORDERED: METOPROLOL TART 25 MG TABLET PO SCH (21:00)
[2018-08-23 00:55] VITALS: BP_SYST 97; BP_SYST 99; BP_DIAS 50; BP_DIAS 54
[2018-08-23 01:35] VITALS: BP 138/70
[2018-08-23] MEDS: IPRATROPIUM 0.5MG/ALBUTEROL 2.5MG INH SOL UD 3ML (DUONEB)(J7620) NEB SCH (03:06)
[2018-08-23 05:26] VITALS: BP 100/60
[2018-08-23] MEDS: LEVOTHYROXINE 50MCG TABLET (0.05MG) PO SCH (05:56)
[2018-08-23 06:00] VITALS: BP 94/52
[2018-08-23 06:02] VITALS: BP 94/52
[2018-08-23] MEDS ORDERED: D5W/0.45% SODIUM CHLORIDE 1,000 ML IV SCH (06:16)
[2018-08-23] MEDS ORDERED: NS 1,000 ML IV ONE (06:30)
[2018-08-23 06:42] LABS: HEMATOCRIT 37.3 % (36.0-47.0); MEAN CORPUSCULAR HEMOGLOBIN 32.7 pg (27.0-33.0); MEAN CORPUSCULAR HGB CONC 31.4 g/dl (32.0-36.5); MEAN CORPUSCULAR VOLUME 104.2 fl (80.0-96.0); PLATELET COUNT, AUTOMATED 226 10^3/uL (150-450); RED BLOOD COUNT 3.58 10^6/uL (4.00-5.40)
[2018-08-23 06:51] LABS: HEMOGLOBIN 11.7 g/dl (12.0-15.5)
[2018-08-23 07:04] LABS: CALCIUM LEVEL 8.5 MG/DL (8.8-10.2); CREATININE FOR GFR 1.5 MG/DL (0.55-1.30); GLOMERULAR FILTRATION RATE 35.5 (>32); POTASSIUM SERUM 3.8 MEQ/L (3.5-5.1)
[2018-08-23 07:32] LABS: LYMPHOCYTES 11 % (16-52); NEUTROPHILS 84 % (35-75)
[2018-08-23 07:33] LABS: ANISOCYTOSIS 1+; OVALOCYTES 1+; PLATELET ESTIMATE INCREASED (NORMAL); POIKILOCYTOSIS 1+
[2018-08-23 07:34] LABS: POLYCHROMASIA 1+
[2018-08-23] MEDS ORDERED: PANTOPRAZOLE 40MG INJ (PROTONIX) (C9113) IV SCH (09:00)
--- NOTE | 2018-08-26 13:28 | PMRDS ---
DATE OF ADMISSION: 08/15/2018 DATE OF DISCHARGE: 08/23/2018 CHIEF COMPLAINT/DISCHARGE DIAGNOSES: Chronic obstructive pulmonary disease (COPD), acute on chronic diastolic congestive heart failure (CHF), gastrointestinal (GI) bleed. HISTORY OF PRESENT ILLNESS: This is an 83-year-old female status post COPD and diastolic CHF, recent fall with left hip fracture and open reduction internal fixation (ORIF) in June with postoperative atrial fibrillation now on Xarelto and amiodarone who presented to [facility] Emergency Department (ED) on 08/09/2018 complaining of worsening shortness of breath and cough. Imaging revealed a right lower lobe infiltrate and pleural effusion, chronic interstitial coarsening. She was evaluated by pulmonology and started on IV antibiotics, IV Solu-Medrol, and transferred to the intensive care unit (ICU) for worsening respiratory status. She tested positive for the coronavirus. She was evaluated by nephrology for hyponatremia in the setting of hypervolemia and aggressively diuresed. Echo on 08/11/2018 showed "Normal LV size with preserved LV systolic function and grade 1 diastolic dysfunction." Her breathing improved in addition to her hyponatremia and she was switched to by mouth antibiotics and oral diuretics with fluid restriction for her acute on chronic diastolic CHF. She was evaluated by therapy and found to have deficits in gait and activities of daily living (ADLs) and deemed medically appropriate to discharge to acute rehabilitation unit (ARU) on 08/15/2018. PAST MEDICAL HISTORY: As per history of present illness (HPI). HOSPITAL COURSE: Patient was admitted and enrolled in a comprehensive occupational therapy (OT)/physical therapy (PT) program. She was provided with 24-hour nursing supervision and weekly team meetings were held to discuss her progress. During her hospital course, she was maintained on Xarelto and amiodarone in addition to metoprolol for her recent history of atrial fibrillation. She was also maintained on torsemide, Aldactone, and fluid restricted to 1500 mL/day. She had an episode of orthostasis for which her metoprolol dose was lowered and her symptoms improved. She finished up a 3-day course of cefdinir and was on a steroid taper for her recent COPD exacerbation in the setting of coronavirus. She was maintained on oxygen and was successfully weaned with the help of therapy. She was maintained on Pepcid and Protonix for gastrointestinal (GI) prophylaxis. On 08/22/2018, she had an episode of vomiting with nausea and loose stools, mild leukocytosis. Repeat urinalysis (UA) was ordered in addition to labs. On 08/23/2018, patient was urgently transferred off the unit for hematemesis with soft blood pressures.
== END 2018-08-23 06:42 | disposition short-term general hospital (02) | DRG 92 ==
LOC: M PM&R 16:44 → UNDOADMIN 16:44 → M PM&R 16:54 → M ICU 08-23 06:39 → UNDODISIN 08-23 06:42
PROVIDERS: ADMIT Physical Medicine & Rehabilitation; ATTEND Physical Medicine & Rehabilitation
DX: R26.89 Other abnormalities of gait and mobility (principal); I50.32 Chronic diastolic (congestive) heart failure; J96.11 Chronic respiratory failure with hypoxia; K92.0 Hematemesis; J44.9 Chronic obstructive pulmonary disease, unspecified; I48.0 Paroxysmal atrial fibrillation; Z79.01 Long term (current) use of anticoagulants; E03.9 Hypothyroidism, unspecified; Z87.891 Personal history of nicotine dependence; Z79.899 Other long term (current) drug therapy; Z79.82 Long term (current) use of aspirin; I11.0 Hypertensive heart disease with heart failure; Z95.2 Presence of prosthetic heart valve; I25.10 Atherosclerotic heart disease of native coronary artery without angina pectoris; R53.1 Weakness; I27.20 Pulmonary hypertension, unspecified; E78.5 Hyperlipidemia, unspecified; I95.1 Orthostatic hypotension

== ENCOUNTER 2018-08-23 06:20 | Inpatient (IN) | payer MEDICARE ==
[2018-08-23] VITALS (31 sets, daily range): BP systolic 47–165; BP diastolic 26–70
[~2018-08-23] VITALS: Ht 170.2 cm; Wt 73.9 kg
[~2018-08-23 06:20] MED LIST changes: +ADVA230A INH; +ALDA25TA2 PO; +CEFD300CAP PO; +LEVOTHYROXINE 50MCG TABLET (0.05MG) PO SCH; +PRED10TA2 PO; +TIOT18INH INH; +TORS20TA2 PO
[2018-08-23] MEDS ORDERED: D5W/0.45% SODIUM CHLORIDE 1,000 ML IV SCH (06:25)
[2018-08-23] MEDS ORDERED: NS 1,000 ML IV ONE ×2 (06:30→13:50)
--- NOTE | 2018-08-23 07:30 | HPEPDOC ---
[facility] Medical History & Physical Date of Admission Aug 23, 2018 Attending Physician: TAMMY APPIAH MD History and Physical CHIEF COMPLAINT: Acute GI bleed HISTORY OF PRESENT ILLNESS: Patient is a 83 year old female with a past medical history significant for COPD, CHF diastolic dysfunction, recent left hip fract ure and ORIF, A-fib on Xarelto, COPD, and recent diagnosis for Pneumonia who was recently discharged from medical floor to ARU. At 0600 a rapid assessment was called to the ARU floor. The patient was found to be alert and oriented with soft blood pressures. She had august red emesis and abdominal pain. She stated that she felt nauseas and had belly pain that felt like gas. Patient continued to have hematemesis. She was subsequently transferred to the ICU where she received 1L NS bolus, IV protonix. She was made NPO. Dr. Wynne of Gastroenterology was contacted and made aware of the patient. Dr. Wynne plans on doing a scope at some point today. Once in the ICU the patient remained stable. Her blood pressure was responding to fluids. Patient had denied any episodes of GI bleeding in the past. PAST MEDICAL HISTORY: 1. CHF diastolic dysfunction 2. Atrial Fibrillation on Xarelto 3. COPD 4. Recent hospitilization for PNA PAST SURGICAL HISTORY: 1.Left hip ORIF 2. Cardiac Stenting SOCIAL HISTORY: Patient is a former smoker, She denies alcohol use or illict drug use FAMILY HISTORY: Sister with cancer, brother heart transplant ALLERGIES: Please see below. REVIEW OF SYSTEMS: CONSTITUTIONAL: Denies fevers, chills. HEENT: Complains of sore throat CARDIOVASCULAR: Denies chest pain, palpitations, or feelings of the heart racing RESPIRATORY: Complains of shortness of breath chronic. Denies cough GASTROINTESTINAL: Complains of vomiting blood HEMATOLOGIC/LYMPHATIC: Complains of easy bleeding HOME MEDICATIONS: Please see below. PHYSICAL EXAMINATION: VITAL SIGNS: Temperature 96.3, pulse 87, respiratory rate 20, blood pressure 94/52, pulse oximetry 91% 3.0 L GENERAL APPEARANCE: Patient is awake alert, and oriented. She does appear in mild acute distress. She appears lethargic. She is having august red hematemeisis. HEENT: Atruamtic normocephalic. Eyes are non-icteric and reactive to light. Trachea is midline CARDIOVASCULAR: Irregularly irregular rythm. No clicks rubs or murmurs. No JVD. No carotid bruits. Capillary refill <2 seconds LUNGS: Rhonci present bilaterally. Wheezing bilaterally. Good respiratory effort ABDOMEN: Slightly distended. Slight tenderness to palpation of all four quadrants. Positive bowel sounds EXTREMITIES: Pulses full and equal bilaterally. No edema LABORATORY DATA: See below. IMAGING: Chest X-ray performed demonstrating Right lower lobe infiltrate MICROBIOLOGY: Please see below. ASSESSMENT and PLAN 1. Acute GI bleed -Patient had an episode of hypotension with august red emesis likely from an upper GI bleed. She has no history of previous GI bleeds in the past. She received a 1L bolus NS with adequate blood pressure response. Patient was made NPO and given IV protonix. Dr. Wynne of GI was contacted and made aware of patient with plans to perform scope to assess cause of bleeding. -Patient has had Xarelto placed on hold -H&H q6H -Type and screen with appropriate transfusion 2. Atrial Fibrillation -Continue rate control. Will hold Xarelto 3. CHF -Currently stable. Patient is receiving 1L NS bolus. She was previously on 1.5L fluid restriction 4. Right lower lobe pneumonia -Previously seen in hospital. Patient was on oral antibiotics. -IV zosyn has been started 5. COPD -Continue patients home medications -Respiratory therapy Home Medications Scheduled Amiodarone HCl (Amiodarone HCl) 200 Mg Tab, 200 MG PO Q2D Arformoterol Tartrate (Brovana) 15 Mcg/2 Ml Neb, 1 VIAL NEB BID Aspirin (Aspirin 81) 81 Mg Tab, 81 MG PO DAILY Atorvastatin Calcium (Atorvastatin Calcium) 40 Mg Tab, 40 MG PO QHS Candesartan Cilexetil (Candesartan Cilexetil) 4 Mg Tab, 4 MG PO DAILY Cefdinir (Cefdinir) 300 Mg Cap, 300 MG PO BID Famotidine (Famotidine) 20 Mg Tab, 20 MG PO DAILY WAITING FOR NEW RX Ferrous Sulfate (Ferosul) 325 Mg Tab, 325 MG PO BID Gabapentin (Gabapentin) 100 Mg Cap, 200 MG PO BID WAITING FOR NEW RX Levothyroxine Sodium (Synthroid) 50 Mcg Tab, 50 MCG PO DAILY Metoprolol Tartrate (Metoprolol Tartrate) 50 Mg Tab, 75 MG PO BID Prednisone (Prednisone) 10 Mg Tab, 10 MG PO TAPER Take 4 tabs daily x 3 days, then 3 tabs daily x 3 days, then 2 tabs daily x 3 days, then 1 tab daily x 3 days and stop Rivaroxaban (Xarelto) 15 Mg Tab, 15 MG PO DAILY Salmeterol/Fluticasone (Advair Hfa 230-21 Mcg/Act) 1 Aer Aer, 2 PUFF INH BID Spironolactone (Aldactone) 25 Mg Tab, 25 MG PO QAM Tiotropium [place] Monohydrate (Spiriva Handihaler) 5 Inhalation/Inhaler Powd, 1 INHALATION INH DAILY@08 Torsemide (Torsemide) 20 Mg Tab, 20 MG PO BID@09,17 Scheduled PRN (Dok Plus 50-8.6 mg) 1 Tab Tab, 1 TAB PO BID PRN for CONSTIPATION Albuterol Sulfate (Albuterol Sulfate) 2.5 Mg/3 Ml Nebu, 1 VIAL INH Q4H PRN for wheezing Allergies Coded Allergies: No Known Drug Allergy (Verified Allergy, Unknown, 09/22/12) GME ATTESTATION GME ATTESTATION My faculty preceptor for this patient encounter was physically present during the encounter and was fully available. All aspects of the patient interview, examination, medical decision making process, and medical care plan development were reviewed and approved by the faculty preceptor. The faculty preceptor is aware and concurs with the plan as stated in the body of this note and will attest to such by his/her cosignature. MARTIN BERGMAN DO Aug 23, 2018 07:30
[2018-08-23] MEDS: IPRATROPIUM 0.5MG/ALBUTEROL 2.5MG INH SOL UD 3ML (DUONEB)(J7620) NEB SCH ×2 (08:00→11:35)
[2018-08-23] MEDS ORDERED: TIOTROPIUM INHALER/CAPSULE (SPIRIVA) INH SCH (08:00)
[2018-08-23] MEDS ORDERED: PIPERACILLIN/TAZOBACTAM SOD 3.375 GM in D5W MINI-BAG PLUS 50 ML IV SCH ×2 (08:00→12:00)
--- NOTE | 2018-08-23 08:04 | REP ---
Portable chest, single AP upright view, 06:46 a.m.: Comparison is 08/11/2018. There is a right lower lobe infiltrate and possibly small right pleural effusion. Lung troncoso otherwise clear. Cardiac size normal. Radha, mediastinum, skeletal structures are unremarkable. Impression: Right lower lobe infiltrate and possible small pleural effusion. Electronically Signed by Eliceo Dawn MD 08/23/2018 07:55 A
[2018-08-23 08:18] LABS: INR 1.66; PARTIAL THROMBOPLASTIN TIME 27.5 SECONDS (25.4-37.6); PROTHROMBIN TIME 19.9 SECONDS (12.1-14.4)
[2018-08-23] MEDS ORDERED: ALBUTEROL SULFATE 2.5 MG/0.5 ML INH NEB SOLN INH PRN (08:30)
[2018-08-23 08:50] LABS: ALBUMIN 2.9 GM/DL (3.2-5.2); BILIRUBIN,TOTAL 1.2 MG/DL (0.2-1.0); CALCIUM LEVEL 8.7 MG/DL (8.8-10.2); CREATININE FOR GFR 1.51 MG/DL (0.55-1.30); GLOMERULAR FILTRATION RATE 35.2 (>32); MAGNESIUM LEVEL 2.1 MG/DL (1.8-2.4); POTASSIUM SERUM 3.8 MEQ/L (3.5-5.1); TOTAL PROTEIN 5.8 GM/DL (6.4-8.2)
[2018-08-23] MEDS ORDERED: ADVAIR HFA 230/21MCG INHALER INH SCH (09:00)
[2018-08-23] MEDS ORDERED: METOPROLOL TART 25 MG TABLET PO SCH (09:00)
[2018-08-23] MEDS ORDERED: methylPREDNISolone INJ 40 MG/1 ML VIAL (J2920) IV SCH (09:00)
[2018-08-23] MEDS ORDERED: LEVOTHYROXINE 100 MCG (0.1MG) VIAL IV SCH (09:00)
[2018-08-23] MEDS ORDERED: PANTOPRAZOLE 40MG INJ (PROTONIX) (C9113) IV SCH (09:00)
[2018-08-23] MEDS ORDERED: GABAPENTIN 100 MG CAP PO SCH (09:00)
[2018-08-23] MEDS ORDERED: FERROUS SULFATE 325MG TAB PO SCH (09:00)
[2018-08-23] MEDS ORDERED: AMIODARONE 200 MG TAB (PACERONE) PO SCH (09:00)
[2018-08-23 09:17] LABS: HEMATOCRIT 26.1 % (36.0-47.0); HEMOGLOBIN 7.8 g/dl (12.0-15.5); MEAN CORPUSCULAR HEMOGLOBIN 33.3 pg (27.0-33.0); MEAN CORPUSCULAR HGB CONC 29.9 g/dl (32.0-36.5); MEAN CORPUSCULAR VOLUME 111.5 fl (80.0-96.0); PLATELET COUNT, AUTOMATED 142 10^3/uL (150-450); RED BLOOD COUNT 2.34 10^6/uL (4.00-5.40); WHITE BLOOD COUNT 4.8 10^3/uL (4.0-10.0)
[2018-08-23 09:25] LABS: INR 2.44
[2018-08-23 09:26] LABS: PARTIAL THROMBOPLASTIN TIME 31.2 SECONDS (25.4-37.6)
[2018-08-23 09:28] LABS: ABG BASE EXCESS 1.4 (-2.0-2.0); ABG HCO3 33.8 MEQ/L (22.0-26.0); ABG O2 SATURATION 98.8 % (95.0-99.0); ABG PARTIAL PRESSURE O2 180.5 mmHg (75.0-100.0); ABG STANDARD HCO3 25.7 MEQ/L (22.0-26.0); ABG TOTAL CO2 37.3 MEQ/L (23.0-31.0); ABG pH (ARTERIAL) 7.084 UNITS (7.350-7.450)
[2018-08-23 09:29] LABS: ABG PARTIAL PRESSURE CO2 115.4 mmHg (35.0-45.0)
[2018-08-23 09:43] LABS: ALBUMIN 1.6 GM/DL (3.2-5.2); ALT/SGPT 21 U/L (12-78); BILIRUBIN,TOTAL 0.7 MG/DL (0.2-1.0); BLOOD UREA NITROGEN 47 MG/DL (7-18); CALCIUM LEVEL 6.5 MG/DL (8.8-10.2); CARBON DIOXIDE LEVEL 23 MEQ/L (21-32); CHLORIDE LEVEL 99 MEQ/L (98-107); CK-MB VALUE MASS < 1.0 NG/ML (<3.6); CPK CREATINE PHOSPHOKINASE 25 U/L (26-192); GLOMERULAR FILTRATION RATE 30.7 (>32); GLUCOSE, FASTING 756 MG/DL (70-100); MAGNESIUM LEVEL 2.1 MG/DL (1.8-2.4); POTASSIUM SERUM 4.1 MEQ/L (3.5-5.1); SODIUM LEVEL 137 MEQ/L (136-145); TOTAL PROTEIN 3.6 GM/DL (6.4-8.2)
[2018-08-23] MEDS ORDERED: MIDAZOLAM INJ 2 MG/2 ML VIAL (J2250) As Ordered ONE (09:50)
--- NOTE | 2018-08-23 09:57 | ROOR ---
Patient Name: Juan David Enriquez Procedure Date: 08/23/2018 8:17 AM Date of : 1935 Age: 83 Gender: Female Note Status: Finalized Procedure: Upper GI endoscopy Indications: Hematemesis Providers: Leighton Wynne MD Referring MD: 1. No Referring Physician 1. No Referring Physician, Admin. Requesting Provider: Medicines: Monitored Anesthesia Care Complications: No immediate complications. Procedure: Pre-Anesthesia Assessment: - The heart rate, respiratory rate, oxygen saturations, blood pressure, adequacy of pulmonary ventilation, and response to care were monitored throughout the procedure. The Endoscope was introduced through the mouth, and advanced to the second part of duodenum. The Endoscope was introduced through the mouth, and advanced to the second part of duodenum. The upper GI endoscopy was accomplished without difficulty. The patient tolerated the procedure well. Findings: The Z-line was regular and was found 36 cm from the incisors. A large amount of food (residue) was found in the cardia. The exam of the duodenum was otherwise normal. Impression: - Z-line regular, 36 cm from the incisors. - A large amount of food (residue) in the stomach. - No specimens collected. - No gross lesions in the entire examined duodenum. Recommendation: - Return patient to ICU for ongoing care. - The findings and recommendations were discussed with the referring physician. Leighton Wynne MD Leighton Wynne MD 08/23/2018 9:57:07 AM This report has been signed electronically. Number of Addenda: 0 Note Initiated On: 08/23/2018 8:17 AM Estimated Blood Loss: Estimated blood loss: none.
[2018-08-23] MEDS ORDERED: PROTHROMBIN COMPLEX CONCEN IV ONE (10:00)
[2018-08-23] MEDS ORDERED: VANCOMYCIN HCL 1,000 MG, VIAL MATE ADAPTER 1 EACH in D5W 250 ML IV ONE (10:00)
[2018-08-23] MEDS ORDERED: PROTHROMBIN COMPLEX CONCENTRAT IV ONE (10:00)
[2018-08-23] MEDS ORDERED: [UNRECOGNIZED DRUG - OTHER] IV ONE (10:00)
[2018-08-23] MEDS ORDERED: SODIUM BICARBONATE 150 MEQ in D5W 1,000 ML IV SCH (10:00)
[2018-08-23] MEDS ORDERED: FUROSEMIDE 20 MG/2 ML VIAL (J1940) As Ordered ONE (10:00)
[2018-08-23] MEDS ORDERED: ISOVUE-300 61% 50ML VIAL (Q9967) As Ordered ONE (10:02)
--- NOTE | 2018-08-23 10:17 | REP ---
Portable chest, AP view, 09:29 a.m.: Comparison is the study from 06:46 a.m. earlier today. There are diffuse bilateral alveolar and interstitial infiltrates as a distinct change. Cardiac size is normal. There is an endotracheal tube with the tip in satisfactory location in the trachea just above the level of the aortic arch. Impression: Distinct interval change consisting of diffuse bilateral alveolar and interstitial infiltrates. Endotracheal tube as described. Electronically Signed by Eliceo Dawn MD 08/23/2018 10:08 A
[2018-08-23 10:26] LABS: HEMATOCRIT 33.9 % (36.0-47.0); MEAN CORPUSCULAR HEMOGLOBIN 31.7 pg (27.0-33.0); MEAN CORPUSCULAR HGB CONC 31.3 g/dl (32.0-36.5); MEAN CORPUSCULAR VOLUME 101.5 fl (80.0-96.0); PLATELET COUNT, AUTOMATED 141 10^3/uL (150-450); RED BLOOD COUNT 3.34 10^6/uL (4.00-5.40)
[2018-08-23 10:27] LABS: ABG BASE EXCESS 2.2 (-2.0-2.0); ABG O2 SATURATION 88.2 % (95.0-99.0); ABG PARTIAL PRESSURE O2 73.7 mmHg (75.0-100.0); ABG STANDARD HCO3 26.2 MEQ/L (22.0-26.0); ABG TOTAL CO2 40.2 MEQ/L (23.0-31.0)
[2018-08-23] MEDS ORDERED: PHYTONADIONE 10MG/ML INJECTION (J3430) As Ordered ONE (10:27)
[2018-08-23 10:31] LABS: HEMOGLOBIN 10.6 g/dl (12.0-15.5)
[2018-08-23 10:32] LABS: WHITE BLOOD COUNT 1.9 10^3/uL (4.0-10.0)
[2018-08-23 10:36] LABS: ABG pH (ARTERIAL) 7.045 UNITS (7.350-7.450)
[2018-08-23 10:37] LABS: ABG PARTIAL PRESSURE CO2 134.8 mmHg (35.0-45.0)
[2018-08-23] MEDS ORDERED: ISOVUE-370 76% 100ML VIAL (Q9967) As Ordered ONE (10:47)
[2018-08-23] MEDS ORDERED: VASOPRESSIN INJ 20 UNITS/ML VIAL As Ordered ONE ×2 (10:58→12:15)
[2018-08-23] MEDS ORDERED: NOREPINEPHRINE BITARTRATE 16 MG in D5W 484 ML IV SCH (11:00)
[2018-08-23] MEDS ORDERED: MIDAZOLAM INJ 2 MG/2 ML VIAL (J2250) IV PRN (11:30)
--- NOTE | 2018-08-23 12:01 | REP ---
CT of the abdomen and pelvis with IV contrast, CT abdominal angiography for gastrointestinal bleed: Comparison is the abdomen pelvis CT of 04/20/2010. The visualized lower lung troncoso demonstrate large bilateral lower lobe infiltrates and bilateral pleural effusions. There is also an infiltrate in the lingula. There is no solid organ E hematoma involving the liver, pancreas, spleen or right or left kidneys. There is no periaortic or retroperitoneal hematoma. 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 There is no intraperitoneal contrast extravasation. There is no free intraperitoneal fluid or hematoma. There is no pneumoperitoneum. The stomach and proximal small bowel loops are fluid filled and probable small small bowel loops are dilated with air fluid levels measuring up to 3.5 cm in diameter, suggestive of proximal small bowel obstruction. The distal small bowel loops are nondilated. There is no colonic distension. There is no contrast extravasation into the stomach or bowel lumen. The celiac and superior mesenteric artery origins are patent and unremarkable. Unable to trace the intraluminal contrast only to the spleen within the splenic artery. The distal splenic artery may be severely stenosed. There is no splenic or perisplenic hematoma. The adrenals are unremarkable. There are bilateral renal cortical simple cysts. No intra renal or pararenal hematoma. Pelvis. There is no free fluid. The pelvic bowel loops are unremarkable. There is a Vazquez catheter in the bladder and the bladder is collapsed. There is grade 1 compression deformity of the L2 superior endplate, age indeterminate. Impression: No solid organ hematoma. No free intraperitoneal fluid. No extravasation of the intravascular contrast into the stomach or bowel loops. Possible small proximal small bowel obstruction. Possible high-grade stenosis of the distal splenic artery. No splenic or perisplenic hematoma. Bilateral hip osteoarthritis. Gamma nail fixation of the left hip. Grade 1 compression deformity of the L2 superior endplate, age indeterminate. 3.1 cm wall dilatation of the distal abdominal aorta. No periaortic hematoma. Electronically Signed by Eliceo Dawn MD 08/23/2018 11:52 A
[2018-08-23] MEDS ORDERED: PROPOFOL 200 MG/20 ML VIAL As Ordered ONE (12:06)
[2018-08-23] MEDS ORDERED: SODIUM BICARBONATE 8.4% INJ 50 ML SYRINGE IV STA ×2 (12:08→12:16)
[2018-08-23] MEDS ORDERED: SODIUM BICARBONATE 8.4% INJ 50 ML SYRINGE As Ordered ONE (12:08)
[2018-08-23 12:09] LABS: ABG BASE EXCESS -0.7 (-2.0-2.0); ABG HCO3 28.8 MEQ/L (22.0-26.0); ABG PARTIAL PRESSURE CO2 72.8 mmHg (35.0-45.0); ABG PARTIAL PRESSURE O2 68.5 mmHg (75.0-100.0); ABG STANDARD HCO3 23.8 MEQ/L (22.0-26.0); ABG pH (ARTERIAL) 7.215 UNITS (7.350-7.450)
[2018-08-23] MEDS ORDERED: VASOPRESSIN INJ 20 UNITS in NS 499 ML IV SCH (12:15)
[2018-08-23] MEDS ORDERED: EPINEPHrine INJ 1 MG/ML 1ML AMP IM STA ×2 (12:31→14:00)
[2018-08-23] MEDS ORDERED: PANTOPRAZOLE SODIUM 40 MG in D5W 50 ML IV SCH ×4 (13:00)
--- NOTE | 2018-08-23 13:09 | ROOPDOC ---
[facility] Report Of Operation Report of Operation DATE OF PROCEDURE: 08/23/2018 PREOPERATIVE DIAGNOSES: Gastrointestinal bleeding, chronic renal sufficiency, status post cardiac arrest POSTOPERATIVE DIAGNOSES: Gastrointestinal bleeding, chronic renal insufficiency, status post cardiac arrest PROCEDURE: Ultrasound guided left brachial artery cannulation Abdominal Aortogram Selective celiac artery catheter placement with angiogram Selective gastroduodenal artery catheter placement with angiogram Selective superior mesenteric artery catheter placement with angiogram SURGEON: Dr. Dyana Mueller MD [employer] ARCHITECT: Sharmin Hopper INDICATION: The patient is an 83-year-old female with hematemesis earlier this morning who underwent a upper endoscopy with findings of no active bleeding. Patient had a cardiac arrest at the end of the procedure and was resuscitated intraoperatively and then emergently transported to the interventional radiology suite for mesenteric angiogram to evaluate for gastroesophageal bleeding with possible coil embolization. The patient was intubated in the operating room and intubated upon arrival to the interventional radiology suite. The procedure was explained and described to the patient's family in detail including drawing of pictures demonstrating the procedure and the pertinent anatomy. Risks, benefits and alternative treatment options were discussed with the patient's family. Alternative treatment options included but were not limited to no intervention. Benefits include but were not limited to evaluation of arterial inflow to the intra-abdominal organs, small bowel and large bowel with possible intervention to treat the gastrointestinal hemorrhage. Risks included but were not limited to infection, bleeding, renal failure requiring hemodialysis, retroperitoneal hematoma, possible need for surgical intervention, allergic and/or adverse reaction from the prepping and draping materials, allergic and/or adverse reaction to the IV sedation and local anesthetic, sedation related complication, possible requirement for transfusion of blood products, scarring of the skin, bruising, nerve injury, anesthetic complications, cerebrovascular accident, myocardial infarction, pulmonary embolus, deep venous thrombosis, poor satisfaction, poor outcome, poor results, loss of limb and loss of life. Patient's family's questions were answered. Patient's family voices understanding of these risks, benefits and alternative treatment options. Patient's family voices acceptance of the risks associated with angiogram to evaluate for gastrointestinal bleeding with possible intervention and consents to proceed with the procedure accepting the associated risks of the procedure. There were no promises or guarantees made to the patient is family regarding the outcome and/or results of the procedure ANESTHESIA: Gen. endotracheal FLUORO TIME: 5.9 minutes CONTRAST: 40 mL of Isovue-300 IVF: 7000 mL of crystalloid 5 units of packed red blood cells 5 units of FFP 2 5 packs of platelets ESTIMATED BLOOD LOSS: 20 mL. HEPARIN: None PROTAMINE: None COMPLICATIONS: None. DRAINS: None SPECIMENS: None IMPLANTS: None FINDINGS: No obvious source of bleeding was noted from the celiac or superior mesenteric arteries DESCRIPTION OF PROCEDURE: The patient was taken to the angiography suite and placed supine on the angiography room table and then prepped and draped in a standard surgical fashion. A time-out was conducted by myself and the team members in the room confirming the correct procedure, patient and laterality. The ultrasound was then used to guide cannulation of the left brachial artery with a micropuncture needle after evaluation of the left brachial artery was performed with ultrasound. Concurrent visualization of the entry of the needle into the left brachial artery was performed under ultrasound guidance with a hardcopy image preserved. A micropuncture wire was then advanced through the micropuncture needle which was used to up-size to a micropuncture sheath. The Parikh wire was then advanced through the micropuncture sheath which was up- sized to a 5 Algerian sheath. The Omni flush catheter was advanced over the Parikh wire and used to direct the wire through the axillary arteries including artery and into the descending thoracic artery. A long 5 Algerian sheath was then advanced over the Parikh wire and placed just above the level of the celiac and superior mesenteric arteries. An aortogram was then performed demonstrating the origins of these per mesenteric and celiac arteries. The angled glide catheter was used to selectively cannulate the celiac artery and an angiogram was performed showing no evidence of bleeding. The catheter was then advanced to the celiac artery into the gastroduodenal artery and a selective angiogram was performed showing no evidence of bleeding. The superior mesenteric artery was then electively cannulated and an angiogram performed showing no evidence of bleeding. The 5 Algerian sheath remained in the left brachial artery and was felt to a pressure bag for easy access in the need of repeat angiography as well as to be used as an arterial line. The left hand was well perfused and had good capillary refill. Dressings were then applied. The patient tolerated the procedure well. All instrument, sponge and needle counts were correct at the end of the case. There were no complications. Dr. Mueller was present for and directed the entire case. Patient then was transferred to the CT scanner for and stat CTA of the abdomen and pelvis to evaluate for other sources of bleeding. The patient was transferred to the recovery area and subsequently ICU in critical condition. The results of the angiography were discussed with the patient's family in the postprocedure holding area and they were notified of the patient's critical condition with poor prognosis. RADIOLOGIC SUPERVISION INTERPRETATION: The aortogram was performed in lateral projection and showed the celiac and superior mesenteric arteries to be patent with no evidence of bleeding The renal arteries were patent. The infrarenal aorta was patent with good filling of lumbar vessels. The celiac artery was selectively cannulated and an angiogram performed showing no obvious evidence of hemorrhage. The catheter was then advanced selectively into the gastroduodenal artery and a selective angiogram performed showing no evidence of bleeding. The superior mesenteric artery was selectively cannulated and an angiogram performed showing no obvious evidence of hemorrhage. The left brachial sheath remained in position for use as an arterial line as well as for quick access in the need of a recurrent mesenteric angiogram for gastrointestinal bleeding. CONCLUSION: Patient underwent selective angiography of the celiac artery gastroduodenal artery and superior mesenteric artery with no obvious findings of gastrointestinal bleeding. Patient will go for and stat CT angiogram of the a bdomen and pelvis with IV contrast to look for other sources of bleeding. Fito Mueller MD Aug 23, 2018 13:09
[2018-08-23] MEDS ORDERED: PROPOFOL 1,000 MG/100 ML VIAL As Ordered ONE (13:11)
[2018-08-23] MEDS ORDERED: PROPOFOL 1,000 MG in APPROPRIATE DILUENT 1 EA IV SCH (13:15)
[2018-08-23 13:54] LABS: HEMATOCRIT 41.7 % (36.0-47.0); MEAN CORPUSCULAR HGB CONC 32.4 g/dl (32.0-36.5); MEAN CORPUSCULAR VOLUME 95.9 fl (80.0-96.0); PLATELET COUNT, AUTOMATED 134 10^3/uL (150-450); RED BLOOD COUNT 4.35 10^6/uL (4.00-5.40)
[2018-08-23 13:56] LABS: ABG BASE EXCESS 4.8 (-2.0-2.0); ABG HCO3 34.8 MEQ/L (22.0-26.0); ABG O2 SATURATION 79.5 % (95.0-99.0); ABG STANDARD HCO3 28.3 MEQ/L (22.0-26.0); ABG TOTAL CO2 37.3 MEQ/L (23.0-31.0)
[2018-08-23 13:56] LABS: HEMOGLOBIN 13.5 g/dl (12.0-15.5); WHITE BLOOD COUNT 0.2 10^3/uL (4.0-10.0)
[2018-08-23 13:59] LABS: ABG PARTIAL PRESSURE CO2 81.1 mmHg (35.0-45.0); ABG PARTIAL PRESSURE O2 48.2 mmHg (75.0-100.0); ABG SITE ART LINE
[2018-08-23 14:08] LABS: HEMATOCRIT 39.1 % (36.0-47.0); HEMOGLOBIN 12.7 g/dl (12.0-15.5); MEAN CORPUSCULAR HEMOGLOBIN 31.1 pg (27.0-33.0); MEAN CORPUSCULAR HGB CONC 32.5 g/dl (32.0-36.5); MEAN CORPUSCULAR VOLUME 95.6 fl (80.0-96.0); PLATELET COUNT, AUTOMATED 141 10^3/uL (150-450); RED BLOOD COUNT 4.09 10^6/uL (4.00-5.40)
[2018-08-23 14:09] LABS: WHITE BLOOD COUNT 0.2 10^3/uL (4.0-10.0)
[2018-08-23 14:17] LABS: CALCIUM LEVEL 8.2 MG/DL (8.8-10.2); CREATININE FOR GFR 1.36 MG/DL (0.55-1.30); GLOMERULAR FILTRATION RATE 39.7 (>32); MAGNESIUM LEVEL 1.7 MG/DL (1.8-2.4); POTASSIUM SERUM 2.9 MEQ/L (3.5-5.1)
[2018-08-23 14:18] LABS: INR 1.43; PROTHROMBIN TIME 17.7 SECONDS (12.1-14.4)
[2018-08-23 14:19] LABS: PARTIAL THROMBOPLASTIN TIME 32.9 SECONDS (25.4-37.6)
[2018-08-23] MEDS ORDERED: EPINEPHrine HCL INJ 1 MG in D5W 240 ML IV SCH (15:00)
[2018-08-23 15:19] LABS: ALBUMIN 2.2 GM/DL (3.2-5.2); BILIRUBIN,DIRECT 0.8 MG/DL (0.0-0.2); CALCIUM LEVEL 7.9 MG/DL (8.8-10.2); CREATININE FOR GFR 1.35 MG/DL (0.55-1.30); GLOMERULAR FILTRATION RATE 40.1 (>32); MB/CK RELATIVE INDEX 2.52 (< OR =4); POTASSIUM SERUM 2.8 MEQ/L (3.5-5.1); TOTAL PROTEIN 4.5 GM/DL (6.4-8.2)
[2018-08-23] MEDS ORDERED: methylPREDNISolone INJ 40 MG/1 ML VIAL (J2920) IV ONE (15:45)
[2018-08-23] MEDS ORDERED: MAG SULF 1GM/100ML (MAG RUN) 1 GM in APPROPRIATE DILUENT 1 EA IV ONE (16:00)
--- NOTE | 2018-08-23 16:28 | REP ---
Bilateral carotid artery duplex ultrasound: Peak flow velocity analysis: RIGHT LEFT ICA Peak flow velocity cm/sec 73.8 cannot performed ICA Diastolic flow velocity cm/sec 27.7 cannot perform ICA/CCA Ratio 1.24 cannot perform ECA Peak flow velocity cm/sec 63.7 cannot perform CCA Peak flow velocity cm/sec 59.6 cannot perform There is shallow atheromatous plaque in the right common carotid artery extending into the internal carotid artery and external carotid artery. The study is performed because of a palpable lump in the neck on the right with concern for pseudoaneurysm. Ultrasonography over the palpable lump identifies two intramuscular hematomas in the right sternocleidomastoid muscle, one measuring 2.0 x 0.5 x 0.9 cm and the other 91.0 x 0.6 x 0.7 cm. No pseudo aneurysm is identified. The patient is apparently status post PICC line attempt. The technologist had to terminate the examination before the left side could be evaluated because of the patient's oxygen saturation condition. There is antegrade flow in the right vertebral artery. The left vertebral artery could not be evaluated. Impression: There is no pseudoaneurysm on the right. There are two intramuscular hematomas in the right sternocleidomastoid muscle. Electronically Signed by Eliceo Dawn MD 08/23/2018 04:19 P
--- NOTE | 2018-08-23 16:57 | IPN ---
DATE: 08/23/2018 Imer pinon was called from the operating room (OR) at 8:41 a.m. for pulseless electrical activity (PEA). Patient is in the OR for acute upper gastrointestinal (GI) bleed overnight with bloody emesis. Patient had esophagogastroduodenoscopy (EGD) attempted by Dr. Wynne with food products and blood but no source of bleeding identified. Patient was hypotensive and subsequently vomited and subsequently was hypoxic and hypotensive with significant dark red emesis and subsequently became pulseless. Started chest compression in the OR also intubated. Patient was intubated by Dr. Aris Draper, anesthesiologist. Cardiopulmonary resuscitation (CPR) was done. Patient was given two runs of epinephrine and also initially given 1 amp of bicarbonate with return of spontaneous circulation, but additionally 2 amps of bicarbonate has also been given fro suspected acidosis. Patient had return of spontaneous circulation at about 8:55. Massive transfusion protocol has also been activated. Right femoral cordis sheath has been inserted by Dr. Jessica Lacey. Left femoral arterial line has been inserted by Dr. Nancy Blanco. Attempt was made unsuccessfully to put in triple-lumen internal jugular (IJ) on patient's right neck but was unsuccessful. Massive transfusion protocol was activated. A repeat EGD was done without finding any source of bleeding by Dr. Wynne. Vascular surgeon, Dr. Darius Mueller, is present and has agreed to take the patient to angiogram to find a source of bleed. General surgery, Dr. Olsen, has also been notified. In total, patient has received two runs of epinephrine, 3 amps of bicarbonate, two doses of vasopressin, and 6 units of packed red blood cells (PRBC), 5 units of fresh frozen plasma (FFP), 2 units of platelets, 10 mg of vitamin K. Kcentra is ordered. Aware that patient is on prednisone for chronic obstructive pulmonary disease (COPD) as well as Xarelto for atrial fibrillation. Kcentra is also ordered. Arterial blood gas (ABG) was done after return of spontaneous circulation, showing severe combined metabolic and respiratory acidosis. Bicarbonate as mentioned above has been given for metabolic acidosis, volume resuscitation with blood products. For respiratory acidosis attempt was made to increase the tidal volume to 300 and respiratory rate from 24 to 30. Repeat ABG has also been ordered. Repeat lab has also been sent, including complete blood count (CBC), lactic acid, basic metabolic panel. Two doses of calcium chloride 1 gram each have also been given during amd after the code. Patient was brought to angiography suite, at one point with improved blood pressure after resuscitation. Vazquez catheter was also inserted. Patient is also making frothy pink material from endotracheal (ET) tube. It was thought that patient could potentially be going into fluid overload given history of congestive heart failure (CHF). One dose of Lasix 40 mg IV has also been given. Unfortunately, no further bleeding was found during the angiogram. CT angiogram has been ordered, and patient was returned back to ICU. During the code, Dr. Darius Mueller, Dr. Nancy Blanco, Dr. Jessica Lacey, and Aris Darden have been present. Hand-off was made to Dr. Nancy Blanco in the ICU after CT angiogram. Levophed drip has also been ordered. Antibiotics, Zosyn and vancomycin, have been ordered. Further management as per driver guide, Dr. Nancy Blanco. [facility]
[2018-08-23] MEDS ORDERED: KCL 10MEQ/100ML SWI (KRUN) 10 MEQ in APPROPRIATE DILUENT 1 EA IV ONE (17:00)
[2018-08-23] MEDS ORDERED: CHLORHEXIDINE GLUCONATE 0.12 % 15ML UDC (PERIDEX ORAL RINSE) MT SCH (21:00)
[2018-08-23] MEDS ORDERED: ATORVASTATIN 20 MG TAB PO SCH (21:00)
--- NOTE | 2018-08-24 07:19 | RO ---
DATE OF PROCEDURE: 08/23/2018 PREPROCEDURE DIAGNOSIS: Hemorrhagic shock. POSTPROCEDURE DIAGNOSIS: Hemorrhagic shock. PROCEDURE: Right femoral Cordis sheath. SURGEON: Dr. Jessica Lacey DIAMOND SAW OPERATOR: None. ANESTHESIA: None. SEDATION: None. VENTILATION: Patient has just been intubated, currently bagged. CONSENT: None, emergency procedure. ESTIMATED BLOOD LOSS: 10 mL. DESCRIPTION OF PROCEDURE: Patient was in the supine position, emergent procedure, during MAX cart. Consent was not obtained. Time-out was not done. Only sterile glove was used, no sterile gown. Site was cleaned with Chloraprep, and subsequently the patient's right femoral pulse was palpated and an introducer needle was inserted slightly medial to the right femoral pulse. Flash of blood returned that is dark purplish color was obtained that is not pulsatile. Subsequently guidewire was inserted through the introducer needle. Introducer needle was removed. The skin was nicked and site was dilated. Subsequently Cordis sheath was inserted with dilator and dilator was removed into the patient's right groin. The Cordis sheath was flushed and clamped, and secured with stitches. Dressing was placed. The patient tolerated the procedure with no complications. Massive transfusion protocol has been activated to transfuse via the Cordis sheath. Edited 08/24/2018 [facility]DA[facility]
--- NOTE | 2018-08-24 08:59 | CR ---
DATE OF CONSULTATION: 08/23/2018 CRITICAL CARE CONSULT NOTE HISTORY OF PRESENT ILLNESS: The patient is an 83-year-old female with a history of chronic obstructive pulmonary disease (COPD), congestive heart failure (CHF) with a history of pulmonary hypertension, paroxysmal atrial fibrillation, hypertension, coronary artery disease, who was recently admitted at [facility] in the end of July with a complaint of shortness of breath. Patient was treated for COPD exacerbation likely secondary to Coronavirus, as well as for possible pneumonia, with antibiotics. Patient had also had a hip fracture after a fall in June where she was treated with open reduction internal fixation (ORIF) in [place]. Postoperatively, she developed atrial fibrillation, and she was started on anticoagulation with Xarelto and amiodarone. After patient's hospitalization in the end of July, she was recommended to be admitted to acute rehabilitation (rehab) for physical therapy and occupational therapy. Patient was, therefore, admitted at acute rehab on 08/15/2018. She was on a prednisone taper there and also on inhaler therapies for her history of COPD. She was still on antibiotics in acute rehab with cefdinir, as well. Patient had a rapid response team ([facility] [employer]) called on the morning of 08/23/2018 on the acute rehab floor at 6:00 a.m. Patient reportedly had august red emesis and complained of abdominal pain and nausea with some bloating. She was alert at that time and blood pressures were borderline. She continued to have episodes of hematemesis, as per reports, and was transferred to the intensive care unit (ICU) for further monitoring. Patient was given intravenous (IV) fluid boluses with improvement in her blood pressure and started on IV Protonix. Gastroenterology was consulted and the plan was for an endoscopy later that morning. Patient was taken to the operating room (OR) for endoscopy for her acute upper GI bleed. Patient had esophagogastroduodenoscopy (EGD) attempted by Dr. Wynne; however, there were food products and blood noted and so he aborted the procedure and there was no intervention done. The patient was given some Versed for sedation for the procedure. After the endoscope was withdrawn, the patient then became hypotensive, had an episode of vomiting, and was subsequently hypoxic. She had significant dark red emesis. Patient then became hypotensive and subsequently went into an asystole cardiac arrest. The [facility] was called to the OR at 8:41 and cardiopulmonary resuscitation was started. Patient was intubated by anesthesia. She was given two runs of epinephrine and initially one amp of bicarbonate and had returned spontaneous circulation approximately 8:55 a.m. Patient had activation of massive transfusion protocol and an emergent right femoral Cordis line was inserted by Dr. Lacey, and a left femoral arterial line was placed by . Patient had attempts by anesthesia to place a triple lumen internal jugular (IJ) catheter in her right neck but was unsuccessful. Patient was then started on the massive transfusion protocol and was given transfusion with packed red blood cells. She was also given two additional amps of bicarbonate for suspected severe acidosis. She also received some IV pushes of vasopressin Patient also received calcium chloride 1 gram post-arrest. Dr. Mueller was present in the OR and the decision was made to take patient to interventional radiology (IR) for an angiogram to try to localize the source of bleeding. While she was there, she received further blood products for a total of six units of packed red blood cells, five units of fresh frozen plasma, two units of platelets, and an additional 10 mg of vitamin K was given. Patient was also given Kcentra as she was on Xarelto for anticoagulation After patient had her angiogram, which did not show any active source of bleeding, she had a CT angiogram done. After her CT angiogram, the patient was noted to have increasing pink frothy material from her endotracheal tube, and she was given a dose of 40 mg of IV Lasix. Patient was then brought to the ICU for further management. PAST MEDICAL AND SURGICAL HISTORY: 1. COPD. 2. Atrial fibrillation, on Xarelto. 3. CHF with a history of pulmonary hypertension. 4. Left hip ORIF. 5. History of coronary artery disease, status post stent. 6. Recent hospitalization for pneumonia and COPD exacerbation. SOCIAL HISTORY: Obtained from the chart as patient is unresponsive. Reportedly a former smoker. ALLERGIES: No known allergies. HOME MEDICATIONS: - amiodarone - Brovana - aspirin - atorvastatin - candesartan - cefdinir - famotidine - ferrous sulfate - gabapentin - Synthroid - metoprolol - prednisone taper - Xarelto - Advair - spironolactone - Spiriva - torsemide PHYSICAL EXAMINATION: Vital Signs: Temperature afebrile, pulse 85, blood pressure 120/45, respiratory rate 30, oxygen saturation 97% on 100% FiO2. General: Patient is intubated, is not sedated, is very minimally responsive to painful stimuli. HEENT: Normocephalic, atraumatic. Pupils are mildly dilated and minimally responsive to light bilaterally. There are dried blood secretions noted around her mouth. Her neck on the right side shows a firm, palpable hematoma, which appears to be increased since her initial cardiac arrest. Cardiovascular: Regular rate and rhythm. Normal S1, S2. No clear murmurs auscultated. Lungs: Endotracheal tube (ET) tube is draining some pink secretions. Coarse ventilator breath sounds bilaterally, diminished bilaterally. Abdomen: Soft, does not appear significantly distended. There is an orogastric (OG) tube draining dark red material. Extremities: No significant lower extremity edema noted bilaterally. Extremities are cool but capillary refill appears normal currently. There are pulses palpable in the radial and in her dorsalis pedis bilaterally. Neurologic: Patient is not sedated, she withdraws very minimally to painful stimuli. Does not have a significant gag reflex on exam. Has very sluggish pupillary reflex bilaterally. LABORATORY: Labs done prior to arrival to the ICU showed a WBC of 1.9, hemoglobin of 10.6, platelets of 141. Prior to admission to the ICU, sodium was 137, potassium 4.1, chloride 99, bicarbonate was 23, BUN 47, creatinine 1.70, glucose was 756, lactic acid was 8.9, calcium was 6.5. ABG was 7.045, pCO2 of 134.8, pO2 of 73.7. Chest x-ray done showed ET tube in good position and diffuse bilateral alveolar interstitial infiltrates. ASSESSMENT AND PLAN: Patient is an 83-year-old female with a past medical history of chronic obstructive pulmonary disease, congestive heart failure, and pulmonary hypertension, atrial fibrillation - on Xarelto, recent hospitalization for pneumonia, was discharged to acute rehab given her history of a recent left hip fracture with open reduction internal fixation. At acute rehab, patient had a rapid response called due to episodes of hematemesis. She was brought to the ICU for further management. She was given IV fluid boluses with some improvement in her blood pressure, and she was then sent down for emergent endoscopy in the operating room that morning. On endoscopy, she had significant dark red blood and food in the stomach and no active source of bleeding noted. There was no intervention done and after the endoscope was withdrawn, the patient then became hypotensive, she had an episode of vomiting with aspiration and then became hypoxemic. Patient then became more hypotensive and bradycardic and had PEA arrest. Patient had cardiopulmonary resuscitation initiated and received two rounds of epinephrine and bicarbonate, as well as some calcium chloride. She had return of spontaneous circulation (ROSC) achieved in the operating room. She had massive transfusion protocol initiated and had an emergent femoral Cordis placed, as well as an emergent femoral arterial line placed. A right internal jugular triple lumen was attempted by anesthesia, but that was unsuccessful. The patient was given PRBCs, as well as multiple rounds of bicarbonate for her suspected acidosis and her blood pressure stabilized. She was, therefore, transferred to interventional radiology for an angiogram to see if they could identify a source of bleeding. There was no source identified on angiogram and so the patient also had a CTA done before being transferred to the ICU for further management. Once the patient was in the ICU, she had received a total of six units of PRBC, five units of fresh frozen plasma, two units of platelets, 10 mg of vitamin K, and Kcentra She had also received multiple rounds of bicarbonate as well as calcium chloride. She did also receive a dose of Lasix as she was noted to have some pink frothy secretions from her ET tube prior to her transfer to the unit. Initially in the ICU, patient was maintaining a blood pressure and a decent saturation on 100% FiO2. Her PEEP was increased given suspected acute respiratory distress syndrome (ARDS) likely secondary to aspiration versus transfusion related acute lung injury or fluid overload. Patient then became hypotensive, and she was noted to have significant flushing throughout her body, as well as hypoxemic. She was started on Levophed and vasopressin, was maxed at 35 mcg of Levophed and vasopressin with minimum response in her blood pressure. She was also desaturating at that time. There was concern for possible anaphylactic reaction given her multiple fresh frozen plasma administration, as well as with the vitamin K. She was given epinephrine intramuscular (IM) dose with improvement in her blood pressure. The patient was then able to be weaned off of the vasopressin and weaned down on the Levophed to 10 mcg per minute. Her oxygenation had also improved. She had repeat labs done and repeat ABGs done, which did show some improvement in her acidosis. Her ventilator settings were also adjusted so that the patient would have increased expiratory time, and her PEEP was also increased as well given suspected ARDS. Patient was started on propofol with the plan to start a paralytic as well for her severe ARDS. However, the patient then again became hypotensive and hypoxemic. She had another epinephrine IM dose given, and she was changed from Levophed to an epinephrine drip. She had also been given broad-spectrum antibiotics with vancomycin and Zosyn upon arrival to the ICU and was started on a protonix drip. Patient was on solu-medrol and was given additional dosage of Solu-Medrol. Patient was also given an additional liter bolus; however, she had also received multiple fluid products and likely did not need any further fluid resuscitation. Discussion was done with patient's family, and they were updated on her critical status, as well as her need for pressor support and her questionable neurologic status, as she had not received any additional sedation and was still minimally responsive. The decision was made at that time with her daughters that patient would be DO NOT RESUSCITATE (DNR). A Medical Orders for Life-Sustaining Treatment (MOLST) was filled out indicating DNR with a trial of intubation. Patient was continued on an epinephrine drip; however, she became hypoxemic and then hypotensive. Patient was bagged with some improvement in her oxygenation. However, her blood pressures continued to drop despite being on maximum pressors. Patient then became bradycardic and the family asked that the bagging would stop. Patient then became asystole and later at 3:38 p.m. Family declined an autopsy. forensic science examiner was called and the patient was deemed not an ME case. Total critical care time spent not including any procedures: Approximately 3 hours and 20 minutes. Edited 08/24/2018 nancy ROSS
--- NOTE | 2018-08-24 09:53 | RO ---
DATE OF PROCEDURE: 08/23/2018 PREPROCEDURE DIAGNOSIS: Gastrointestinal (GI) bleed. POSTPROCEDURE DIAGNOSIS: Gastrointestinal (GI) bleed. PROCEDURE: Femoral arterial line. INDICATION: Shock. SURGEON: Dr. Nancy Blanco. ESTIMATED BLOOD LOSS: less than 5ml CONSENT: Consent was implied given the emergent nature of the procedure. PROCEDURE SUMMARY: Given the emergent nature of the procedure, semi-sterile technique was performed. Surgical cap and mask with protective eye wear and sterile gloves were used during the procedure. The left femoral region was prepped using chlorhexidine scrub. A sterile probe cover was used with ultrasound to identify the left femoral artery. A needle was introduced into the left femoral artery with arterial blood pulsating. The syringe was removed and a guidewire was advanced into the needle. The needle was then exchanged over the guidewire for a catheter. The catheter was sutured in place and a sterile chlorhexidine impregnated dressing was placed over the catheter and the insertion site. The catheter was connected to the dynamite reclaimer and calibrated. Appropriate wave form and blood pressure tracing was observed. ESTIMATED BLOOD LOSS: Less than 5 mL. MTDD
[2018-08-24] MEDS ORDERED: CALCIUM CHLORIDE 10% 1 GM/10 ML SYR ONE (11:00)
[2018-08-24] MEDS ORDERED: SODIUM BICARBONATE 8.4% INJ 50 ML SYRINGE ONE (11:00)
--- NOTE | 2018-08-24 13:46 | CR ---
DATE OF CONSULTATION: 08/23/2018 This is an 83-year-old white female who has been consulted with GI for acute onset of hematemesis. The patient has multiple medical problems including chronic obstructive pulmonary disease (COPD), congestive heart failure, (CHF), she is status post recent left hip fracture and open reduction internal fixation (ORIF), and is on Xarelto for atrial fibrillation. She has had a previous history of recent pneumonia. The patient had a rapid assessment when she was on rehab and was found to be oriented with soft blood pressures. She had august red emesis and abdominal pain. I was contacted to see the patient for urgent scope to evaluate a possible source for her bleeding. PAST MEDICAL HISTORY: Positive for CHF, atrial fibrillation - on Xarelto, COPD and status post left hip fracture and previous cardiac stenting. SOCIAL HISTORY: The patient is a former smoker. ALLERGIES: As above. REVIEW OF SYSTEMS: Noncontributory. PHYSICAL EXAMINATION: General: She is a well developed, thin white female in no acute distress. Appears stated age. Chest was clear to auscultation. Cardiovascular exam showed an irregular rhythm. No murmurs or gallops. Normal physiological split. S1, S2. Abdomen: Soft, nontender. No masses, guarding, rebound, hepatosplenomegaly. Bowel sounds positive. Laboratory studies on admission showed a white count of 4800, hemoglobin and hematocrit of 7.8 and 26.1. Chemistries on admission, on consultation were normal. Coagulation studies showed an INR of 1.66. ANALYSIS: Hematemesis, unknown etiology. PLAN: Plan will be to set the patient up for an esophagogastroduodenoscopy (EGD) for evaluation of the patient's possible source of bleeding.
--- NOTE | 2018-08-28 15:09 | DS.PDOC ---
Discharge Summary General Date of Admission Aug 23, 2018 at 11:51 Date of Discharge 08/23/18 Discharge Summary PROCEDURES PERFORMED DURING STAY: 1. EGD 2. Femoral cordis placement 3. Femoral arterial line placement 4. IR angiogram ADMITTING DIAGNOSES: 1. GI bleed DISCHARGE DIAGNOSES: 1. Acute hypoxemic respiratory failure 2. Aspiration 3. Shock 4. ARDS vs TRALI COMPLICATIONS/CHIEF COMPLAINT: Gi Bleed. HISTORY OF PRESENT ILLNESS: The patient is an 83-year-old female with a history of chronic obstructive pulmonary disease (COPD), congestive heart failure (CHF) with a history of pulmonary hypertension, paroxysmal atrial fibrillation, hypertension, coronary artery disease, who was recently admitted at [facility] in the end of July with a complaint of shortness of breath. Patient was treated for COPD exacerbation likely secondary to Coronavirus, as well as for possible pneumonia, with antibiotics. Patient had also had a hip fracture after a fall in June where she was treated with open reduction internal fixation (ORIF) in [place]. Postoperatively, she developed atrial fibrillation, and she was started on anticoagulation with Xarelto and amiodaro ne. After patient's hospitalization in the end of July, she was recommended to be admitted to acute rehabilitation (rehab) for physical therapy and occupational therapy. Patient was, therefore, admitted at acute rehab on 08/15/2018. She was on a prednisone taper there and also on inhaler therapies for her history of COPD. She was still on antibiotics in acute rehab with cefdinir, as well. Patient had a rapid response team ([facility]) called on the morning of 08/23/2018 on the acute rehab floor at 6:00 a.m. Patient reportedly had august red emesis and complained of abdominal pain and nausea with some bloating. She was alert at that time and blood pressures were borderline. She continued to have episodes of hematemesis, as per reports, and was transferred to the intensive care unit (ICU) for further monitoring. Patient was given intravenous (IV) fluid boluses with improvement in her blood pressure and started on IV Protonix. Gastroenterology was consulted and the plan was for an endoscopy later that morning. HOSPITAL COURSE: Patient was taken to the operating room (OR) for endoscopy for her acute upper GI bleed. Patient had esophagogastroduodenoscopy (EGD) attempted by Dr. Wynne; however, there were food products and blood noted and so he aborted the procedure and there was no intervention done. The patient was given some Versed for sedation for the procedure. After the endoscope was withdrawn, the patient then became hypotensive, had an episode of vomiting, and was subsequently hypoxic. She had significant dark red emesis. Patient then became hypotensive and subsequently went into an asystole cardiac arrest. The [facility] was called to the OR at 8:41 and cardiopulmonary resuscitation was started. Patient was intubated by anesthesia. She was given two runs of epinephrine and initially one amp of bicarbonate and had returned spontaneous circulation approximately 8:55 a.m. Patient had activation of massive transfusion protocol and an emergent right femoral Cordis line was inserted by Dr. Lacey, and a left femoral arterial line was placed by . Patient had attempts by anesthesia to place a triple lumen internal jugular (IJ) catheter in her right neck but was unsuccessful. Patient was then started on the massive transfusion protocol and was given transfusion with packed red blood cells. She was also given two additional amps of bicarbonate for suspected severe acidosis. She also received some IV pushes of vasopressin Patient also received calcium chloride 1 gram post-arrest. Dr. Mueller was present in the OR and the decision was made to take patient to interventional radiology (IR) for an angiogram to try to localize the source of bleeding. While she was there, she received further blood products for a total of six units of packed red blood cells, five units of fresh frozen plasma, two units of platelets, and an additional 10 mg of vitamin K was given. Patient was also given Kcentra as she was on Xarelto for anticoagulation After patient had her angiogram, which did not show any active source of bleeding, she had a CT angiogram done. After her CT angiogram, the patient was noted to have increasing pink frothy material from her endotracheal tube, and she was given a dose of 40 mg of IV Lasix. Patient was then brought to the ICU for further management. Once the patient was in the ICU, she had received a total of six units of PRBC, five units of fresh frozen plasma, two units of platelets, 10 mg of vitamin K, and Kcentra She had also received multiple rounds of bicarbonate as well as calcium chloride. Initially in the ICU, patient was maintaining a blood pressure and a decent saturation on 100% FiO2. Her PEEP was increased given suspected acute respiratory distress syndrome (ARDS) likely secondary to aspiration versus transfusion related acute lung injury or fluid overload. Patient then became hypotensive, and she was noted to have significant flushing throughout her body, as well as hypoxemic. She was started on Levophed and vasopressin, was maxed at 35 mcg of Levophed and vasopressin with minimum response in her blood pressure. She was also desaturating at that time. There was concern for possible anaphylactic reaction given her multiple fresh frozen plasma administration, as well as with the vitamin K. She was given epinephrine intramuscular (IM) dose with imp rovement in her blood pressure. The patient was then able to be weaned off of the vasopressin and weaned down on the Levophed to 10 mcg per minute. Her oxygenation had also improved. She had repeat labs done and repeat ABGs done, which did show some improvement in her acidosis. Her ventilator settings were also adjusted so that the patient would have increased expiratory time, and her PEEP was also increased as well given suspected ARDS. Patient was started on propofol with the plan to start a paralytic as well for her severe ARDS. However, the patient then again became hypotensive and hypoxemic. She had another epinephrine IM dose given, and she was changed from Levophed to an epinephrine drip. She had also been given broad-spectrum antibiotics with vancomycin and Zosyn upon arrival to the ICU and was started on a protonix drip. Patient was on solu-medrol and was given additional dosage of Solu-Medrol. Patient was also given an additional liter bolus; however, she had also received multiple fluid products and likely did not need any further fluid resuscitation. Discussion was done with patient's family, and they were updated on her critical status, as well as her need for pressor support and her questionable neurologic status, as she had not received any additional sedation and was still minimally responsive. The decision was made at that time with her daughters that patient would be DO NOT RESUSCITATE (DNR). A Medical Orders for Life-Sustaining Treatment (MOLST) was filled out indicating DNR with a trial of intubation. Patient was continued on an epinephrine drip; however, she became hypoxemic and then hypotensive. Patient was bagged with some improvement in her oxygenation. However, her blood pressures continued to drop despite being on maximum pressors. Patient then became bradycardic and the family asked that the bagging would stop. Patient then became asystole and later at 3:38 p.m. Family declined an autopsy. trial examiner was called and the patient was deemed not an ME case. DISCHARGE MEDICATIONS: Please see below. ALLERGIES: Please see below. PHYSICAL EXAMINATION ON DISCHARGE: VITAL SIGNS: Please see below. GENERAL: Intubated, not sedated. Very minimally responsive to painful stimuli. HEENT: Normocephalic, atraumatic. Pupils are mildly dilated and minimally responsive to light bilaterally. There dried blood secretions noted around her mouth. ETT draining pink and bloody secretions and OGT in place draining dark- red fluid NECK: Right side of neck shows a firm palpable hematoma which appears increased in size from when she had her initial cardiac arrest CARDIOVASCULAR EXAMINATION: Regular rate and rhythm, unable to appreciate any murmurs RESPIRATORY EXAMINATION: Coarse ventilator breath sounds, diminished bilaterally ABDOMINAL EXAMINATION: Soft, non distended EXTREMITIES: No LE edema bilaterally. Extremities are cool but has decent capillary refill. Pulses palpable in radial and dorsalis pedis. NEUROLOGICAL EXAMINATION: Not sedated, minimally withdrawals to painful stimuli. No gag reflex, pupils sluggish. LABORATORY DATA: Please see below. IMAGING: CT angiogram: No solid organ hematoma. No free intraperitoneal fluid. No extravasation of the intravascular contrast into the stomach or bowel loops. Possible small proximal small bowel obstruction. Possible high-grade stenosis of the distal splenic artery. No splenic or perisplenic hematoma. Grade 1 compression deformity of the L2 superior endplate, age indeterminate. 3.1 cm wall dilatation of the distal abdominal aorta. No periaortic hematoma. PROGNOSIS: Poor ACTIVITY: None DISCHARGE PLAN: DISPOSITION: 20 . DISCHARGE INSTRUCTIONS: None, TIME SPENT ON DISCHARGE: Greater than 20 minutes. Vital Signs/I&Os Vital Signs Date Time Temp Pulse Resp B/P (MAP) Pulse Ox O2 Delivery O2 Flow Rate FiO2 08/23/18 15:10 90 129/46 79 100 08/23/18 12:50 28 08/23/18 11:30 97.9 08/23/18 08:15 6 Microbiology Microbiology 08/23/18 Blood Culture - Final, Complete Pantoea Species Allergies Coded Allergies: No Known Drug Allergy (Verified Allergy, Unknown, 09/22/12) MINDY LINDER MD Aug 28, 2018 15:09
== END 2018-08-23 15:38 | disposition expired | DRG 377 ==
LOC: UNDOADMIN 06:30 → M ICU 06:30 → UNDOADMIN 11:51 → M PM&R 11:51 → UNDODISIN 15:38
PROVIDERS: ADMIT Hospitalist; ATTEND Hospitalist
PROC: B414YZZ Fluoroscopy of Superior Mesenteric Artery using Other Contrast (ICD-10-PCS; 2018-08-23)
PROC: 30233N1 Transfusion of Nonautologous Red Blood Cells into Peripheral Vein, Percutaneous Approach (ICD-10-PCS; 2018-08-23)
PROC: 30233R1 Transfusion of Nonautologous Platelets into Peripheral Vein, Percutaneous Approach (ICD-10-PCS; 2018-08-23)
PROC: 30233K1 Transfusion of Nonautologous Frozen Plasma into Peripheral Vein, Percutaneous Approach (ICD-10-PCS; 2018-08-23)
PROC: 04HL33Z Insertion of Infusion Device into Left Femoral Artery, Percutaneous Approach (ICD-10-PCS; principal; 2018-08-23 07:40)
PROC: 0DJ08ZZ Inspection of Upper Intestinal Tract, Via Natural or Artificial Opening Endoscopic (ICD-10-PCS; 2018-08-23 07:40)
DX: K92.0 Hematemesis (principal); J18.9 Pneumonia, unspecified organism; J96.01 Acute respiratory failure with hypoxia; E87.2 Acidosis; J44.0 Chronic obstructive pulmonary disease with (acute) lower respiratory infection; I50.30 Unspecified diastolic (congestive) heart failure; I46.9 Cardiac arrest, cause unspecified; I48.0 Paroxysmal atrial fibrillation; Z79.01 Long term (current) use of anticoagulants; Z87.891 Personal history of nicotine dependence; Z79.899 Other long term (current) drug therapy; Z79.82 Long term (current) use of aspirin; I27.20 Pulmonary hypertension, unspecified; I25.10 Atherosclerotic heart disease of native coronary artery without angina pectoris; R57.8 Other shock